=== PATIENT | male | born 1945 | race Caucasian/White ===

== ENCOUNTER 2016-07-26 14:14 | Emergency (ER) | payer OTHER ==
--- NOTE | 2016-07-26 14:20 | ER Document Report ---
ED Medical Screen (RME) - General Stated Complaint: FALL HIP PAIN Notes: Patient is a 71-year-old male who fell on Thursday. States he has right cheekbone, shoulder pain, chest and hip pain. Patient has a history of night terrors and fell out of bed on Thursday. He is not on blood thinners. Since Thursday denies any headaches, nausea, vomiting, altered mental status or confusion. I have greeted and performed a rapid initial assessment of this patient. A comprehensive ED assessment and evaluation of the patient, analysis of test results and completion of the medical decision making process will be conducted by additional ED providers. TRAVEL OUTSIDE OF THE [place] IN LAST 30 DAYS: No - Related Data Allergies/Adverse Reactions: moxifloxacin [Moxifloxacin] Allergy (Verified 07/17/15 09:29) swell Penicillins Allergy (Verified 07/17/15 09:29) swell tetracycline [Tetracycline] Allergy (Verified 07/17/15 09:29) swell Past Medical History - Past Medical History Cardiac Medical History: Reports: Hx Coronary Artery Disease, Hx Hypercholesterolemia Denies: Hx Heart Attack, Hx Hypertension Pulmonary Medical History: Reports: Hx Bronchitis - hx of, Hx COPD, Hx Pneumonia - hx Denies: Hx Asthma Neurological Medical History: Denies: Hx Cerebrovascular Accident, Hx Seizures Endocrine Medical History: Reports: Hx Hypothyroidism GI Medical History: Denies: Hx Hepatitis, Hx Hiatal Hernia, Hx Ulcer Musculoskeltal Medical History: Reports Hx Arthritis Infectious Medical History: Denies: Hx Hepatitis Past Surgical History: Reports: Hx Orthopedic Surgery - Right subtalar fusion x2 , Hx Vascular Surgery - Left carotid endarterectomy. Denies: Hx Open Heart Surgery, Hx Pacemaker - Immunizations Hx Diphtheria, Pertussis, Tetanus Vaccination: Yes
--- NOTE | 2016-07-26 14:36 | ER Document Report ---
ED Fall - General Chief Complaint: Fall Stated Complaint: FALL HIP PAIN Notes: Patient is a 71-year-old male, past medical history COPD, PTSD, 19 years, presents after he fell out of bed last night and landed on his right side of his body. He is complaining of right cheek pain, right lateral rib pain, right hip pain and right shoulder pain. He denies LOC, blood thinner use, difficulty swallowing, epistaxis, neck pain, nausea, vomiting, cough, fevers or rash. TRAVEL OUTSIDE OF THE [place] IN LAST 30 DAYS: No - Related data Allergies/Adverse Reactions: moxifloxacin [Moxifloxacin] Allergy (Verified 07/26/16 14:20) swell Penicillins Allergy (Verified 07/26/16 14:20) swell tetracycline [Tetracycline] Allergy (Verified 07/26/16 14:20) swell Past Medical History - General Information source: Patient - Social History Smoking Status: Current Every Day Smoker Chew tobacco use (# tins/day): No Frequency of alcohol use: None Drug Abuse: None Family History: Reviewed & Not Pertinent Patient has suicidal ideation: No Patient has homicidal ideation: No - Past Medical History Cardiac Medical History: Reports: Hx Coronary Artery Disease, Hx Hypercholesterolemia Denies: Hx Heart Attack, Hx Hypertension Pulmonary Medical History: Reports: Hx Bronchitis - hx of, Hx COPD, Hx Pneumonia - hx Denies: Hx Asthma Neurological Medical History: Denies: Hx Cerebrovascular Accident, Hx Seizures Endocrine Medical History: Reports: Hx Hypothyroidism Renal/ Medical History: Denies: Hx Peritoneal Dialysis GI Medical History: Denies: Hx Hepatitis, Hx Hiatal Hernia, Hx Ulcer Musculoskeltal Medical History: Reports Hx Arthritis Infectious Medical History: Denies: Hx Hepatitis Past Surgical History: Reports: Hx Orthopedic Surgery - Right subtalar fusion x2 , Hx Vascular Surgery - Left carotid endarterectomy. Denies: Hx Open Heart Surgery, Hx Pacemaker - Immunizations Hx Diphtheria, Pertussis, Tetanus Vaccination: Yes Review of Systems - Review of Systems Notes: REVIEW OF SYSTEMS: CONSTITUTIONAL: -fevers, -chills EENT: +right cheek pain, -eye pain, -difficulty swallowing, -nasal congestion CARDIOVASCULAR: +right posterior chest wall pain, -syncope. RESPIRATORY: -cough, -SOB GASTROINTESTINAL: -abdominal pain, - nausea, -vomiting, -diarrhea GENITOURINARY: -dysuria, -hematuria MUSCULOSKELETAL: +right shoulder pain, +right hip pain SKIN: -rash or skin lesions. HEMATOLOGIC: -easy bruising or bleeding. LYMPHATIC: -swollen, enlarged glands. NEUROLOGICAL: -altered mental status or loss of consciousness, -headache, - neurologic symptoms PSYCHIATRIC: -anxiety, -depression. ALL OTHER SYSTEMS REVIEWED AND NEGATIVE. Physical Exam - Notes Notes: PHYSICAL EXAMINATION: GENERAL: Well-appearing, well-nourished and in no acute distress. HEAD: Atraumatic, normocephalic. EYES: Pupils equal round and reactive to light, extraocular movements intact, sclera anicteric, conjunctiva are normal. ENT: Tenderness over right zygomatic arch, nares patent, oropharynx clear without exudates. Moist mucous membranes. NECK: Normal range of motion, supple without lymphadenopathy LUNGS: Breath sounds clear to auscultation bilaterally and equal. No wheezes rales or rhonchi. HEART: Regular rate and rhythm without murmurs ABDOMEN: Soft, nontender, normoactive bowel sounds. No guarding, no rebound. No masses appreciated. EXTREMITIES: Tenderness over right lateral shoulder, right lateral hip, and right lateral/posterior mid-chest wall. Normal range of motion, no pitting or edema. No cyanosis. NEUROLOGICAL: Cranial nerves grossly intact. Normal speech, normal gait. Normal sensory, motor, and reflex exams. PSYCH: Normal mood, normal affect. SKIN: Warm, Dry, normal turgor, no rashes or lesions noted. Course - Re-evaluation Re-evalutation: Patient has posterior fourth and fifth right rib fractures. No pneumothorax and patient is not short of breath. Provided patient with pain control and incentive spirometer with instructions to continue its use to help prevent pneumonia. Given strict return precautions and he understands. - Diagnostic Test Radiology reviewed: Image reviewed, Reports reviewed Radiology results interpreted by me: Ribs x-ray: Posterior fractures of the fourth and fifth ribs NAD in right shoulder x-ray, right hip x-ray and facial bones. Discharge - Discharge Clinical Impression: Ribs, multiple fractures Qualifiers: Encounter type: initial encounter Fracture type: closed Laterality: right Qualified Code(s): S22.41XA - Multiple fractures of ribs, right side, initial encounter for closed fracture Condition: Stable Disposition: HOME, SELF-CARE Additional Instructions: Rib Injuries and Fractures You have been diagnosed as having either bruised or broken ribs. These two injuries are treated in the same way. It will usually take four to six weeks for these injured ribs to heal. Sometimes, rib belts or anesthetic injections of the chest wall help reduce the pain. If you are using a rib belt, you should cough or take a deep breath at least every hour or two to prevent lung complications. You should not engage in any strenuous physical activity until released by your physician. The usual rule is "if it hurts, don't do it." Rib fractures can lead to serious lung complications including lung collapse, hemorrhage, and pneumonia. You should call the physician or return at once if any of the following occur: (1) Fever or chills. (2) Persistent cough, coughing up blood, or shortness of breath. (3) Increasing pain. (4) Weakness, lightheadedness, or fainting. Prescriptions: Hydrocodone/Acetaminophen [[place] 5-325 mg Tablet] 1 tab PO Q6H PRN #20 tablet PRN Reason:
[2016-07-26] MEDS ORDERED: IBUPROFEN 600 MG TABLET PO ONE (15:30)
[2016-07-26] MEDS ORDERED: HYDROCODONE/ACETAMINOPHEN 5-325 MG TABLET PO ONE (15:30)
[2016-07-26 16:52] VITALS: BP 152/69
== END 2016-07-26 16:05 | disposition home or self-care (01) ==
LOC: ER 14:14
DX: S22.41XA Multiple fractures of ribs, right side, initial encounter for closed fracture (principal); M25.552 Pain in left hip; R07.81 Pleurodynia; M25.512 Pain in left shoulder; F17.200 Nicotine dependence, unspecified, uncomplicated; W06.XXXA Fall from bed, initial encounter
CPT/HCPCS: 70150; 99284

== ENCOUNTER → 2017-03-10 | Outpatient (CLI) | payer OTHER ==
--- NOTE | 2017-03-10 15:29 | RADIOLOGY REPORT (SQ) ---
EXAM DESCRIPTION: CHEST PA/LATERAL COMPLETED DATE/TIME: 03/10/2017 3:10 pm REASON FOR STUDY: DYSPNEA, UNSPECIFIED COMPARISON: 06/01/2015 EXAM PARAMETERS: NUMBER OF VIEWS: two views TECHNIQUE: Digital Frontal and Lateral radiographic views of the chest acquired. RADIATION DOSE: NA LIMITATIONS: none FINDINGS: LUNGS AND PLEURA: The lungs are hyperexpanded. No infiltrates or effusions. There is no mass MEDIASTINUM AND HILAR STRUCTURES: No masses or contour abnormalities. HEART AND VASCULAR STRUCTURES: Heart normal size. No evidence for failure. BONES: No acute findings. HARDWARE: None in the chest. OTHER: No other significant finding. IMPRESSION: Chronic lung changes with no acute cardiopulmonary disease. TECHNICAL DOCUMENTATION: JOB ID: [id number] [employer]- All Rights Reserved
== END ==
LOC: OD 14:56
PROVIDERS: ATTEND Internal Medicine Pulmonary Disease
DX: R06.00 Dyspnea, unspecified (principal)
CPT/HCPCS: 71020

== ENCOUNTER 2017-03-27 12:31 | Inpatient (IN) | payer OTHER, MEDICARE ==
[2017-03-27] MEDS ORDERED: NORMAL SALINE 1000 ML 1,000 ML IV ONE (12:42)
--- NOTE | 2017-03-27 12:50 | ER Document Report ---
ED Fever - General Chief Complaint: Fever Stated Complaint: WEAKNESS Time Seen by Provider: 03/27/17 12:41 Notes: The patient is a 71-year-old male, past medical history COPD, hypothyroidism, presents from home after he was confused. He had a temperature of 101.1 and received 975 mg Tylenol and 300 mL normal saline by EMS prior to arrival. He has not eaten much earlier today. Patient is complaining of a productive cough. He is AAO2 (remembers the month, but thinks it is 1997). TRAVEL OUTSIDE OF THE [place] IN LAST 30 DAYS: No - Related Data Allergies/Adverse Reactions: moxifloxacin [Moxifloxacin] Allergy (Verified 07/26/16 14:20) swell Penicillins Allergy (Verified 07/26/16 14:20) swell tetracycline [Tetracycline] Allergy (Verified 07/26/16 14:20) swell Past Medical History - General Information source: Patient - Social History Smoking Status: Former Smoker Family History: Reviewed & Not Pertinent - Past Medical History Cardiac Medical History: Reports: Hx Coronary Artery Disease, Hx Hypercholesterolemia Denies: Hx Heart Attack, Hx Hypertension Pulmonary Medical History: Reports: Hx Bronchitis - hx of, Hx COPD, Hx Pneumonia - hx Denies: Hx Asthma Neurological Medical History: Denies: Hx Cerebrovascular Accident, Hx Seizures Endocrine Medical History: Reports: Hx Hypothyroidism Renal/ Medical History: Denies: Hx Peritoneal Dialysis GI Medical History: Denies: Hx Hepatitis, Hx Hiatal Hernia, Hx Ulcer Musculoskeltal Medical History: Reports Hx Arthritis Infectious Medical History: Denies: Hx Hepatitis Past Surgical History: Reports: Hx Orthopedic Surgery - Right subtalar fusion x2 , Hx Vascular Surgery - Left carotid endarterectomy. Denies: Hx Open Heart Surgery, Hx Pacemaker - Immunizations Hx Diphtheria, Pertussis, Tetanus Vaccination: Yes Review of Systems - Review of Systems Notes: REVIEW OF SYSTEMS: CONSTITUTIONAL: +fevers, -chills EENT: -eye pain, -difficulty swallowing, -nasal congestion CARDIOVASCULAR:-chest pain, -syncope. RESPIRATORY: +cough, -SOB GASTROINTESTINAL: -abdominal pain, - nausea, -vomiting, -diarrhea GENITOURINARY: -dysuria, -hematuria MUSCULOSKELETAL: -back pain, -neck pain SKIN: -rash or skin lesions. HEMATOLOGIC: -easy bruising or bleeding. LYMPHATIC: -swollen, enlarged glands. NEUROLOGICAL: +altered mental status, -loss of consciousness, -headache, - neurologic symptoms PSYCHIATRIC: -anxiety, -depression. ALL OTHER SYSTEMS REVIEWED AND NEGATIVE. Physical Exam - Notes Notes: PHYSICAL EXAMINATION: GENERAL: Well-appearing, well-nourished and in no acute distress. HEAD: Atraumatic, normocephalic. EYES: Pupils equal round and reactive to light, extraocular movements intact, sclera anicteric, conjunctiva are normal. ENT: nares patent, oropharynx clear without exudates. Moist mucous membranes. NECK: Normal range of motion, supple without lymphadenopathy LUNGS: Breath sounds clear to auscultation bilaterally and equal. No wheezes rales or rhonchi. Coarse sounds in right lower lobe. HEART: Regular rate and rhythm without murmurs ABDOMEN: Soft, nontender, normoactive bowel sounds. No guarding, no rebound. No masses appreciated. EXTREMITIES: Normal range of motion, no pitting or edema. No cyanosis. NEUROLOGICAL: Cranial nerves grossly intact. Normal speech, normal gait. Normal sensory and motor exams. AAOx2. PSYCH: Normal mood, normal affect. SKIN: Warm, Dry, normal turgor, no rashes or lesions noted. Course - Re-evaluation Re-evalutation: Patient with evidence of a right middle lobe pneumonia with fever, leukocytosis and productive cough. Because patient is having confusion he is normally very sharp at baseline, will admit patient for IV antibiotics and further monitoring of his mental status. 03/27/17 14:[address] Parson (Hospitalist) and he has accepted patient to [facility] as Inpatient. Discussed Abx choices with his allergies and will begin Rocephin and Azithromycin for CAP and closely monitor patient for any reactions. - Laboratory Result Diagrams: 03/27/17 13:22 03/27/17 13:22 Laboratory results interpreted by me: 03/27/17 03/27/17 03/27/17 13:22 13:22 13:22 WBC 18.5 H Hgb 13.3 L Seg Neuts % (Manual) 89 H Band Neutrophils % 1 L Lymphocytes % (Manual) 2 L Abs Neuts (Manual) 16.7 H Abs Lymphs (Manual) 0.4 L VBG pH 7.45 H Creatine Kinase 21 L Total Protein 5.1 L Albumin 3.3 L - Diagnostic Test Radiology reviewed: Image reviewed, Reports reviewed Radiology results interpreted by me: CXR: Patchy airspace disease in the lateral segment right middle lobe worrisome for pneumonia. - EKG Interpretation by Me EKG shows normal: Sinus rhythm, [place], Intervals, QRS Complexes, ST-T Waves Rate: Normal Discharge - Discharge Clinical Impression: SIRS (systemic inflammatory response syndrome) Pneumonia Qualifiers: Pneumonia type: due to unspecified organism Laterality: right Lung location: middle lobe of lung Qualified Code(s): J18.1 - Lobar pneumonia, unspecified organism Mental status change Qualifiers: Altered mental status type: unspecified Qualified Code(s): R41.82 - Altered mental status, unspecified Condition: Stable Disposition: ADMITTED INPATIENT Admitting Provider: Hospitalist - [facility] Admitted: Telemetry
--- NOTE | 2017-03-27 13:14 | RADIOLOGY REPORT (SQ) ---
EXAM DESCRIPTION: CHEST SINGLE VIEW COMPLETED DATE/TIME: 03/27/2017 12:59 pm REASON FOR STUDY: fever COMPARISON: Chest film 03/10/2017, 07/26/2016 CT chest 07/17/2015 EXAM PARAMETERS: NUMBER OF VIEWS: One view. TECHNIQUE: Single frontal radiographic view of the chest acquired. RADIATION DOSE: NA LIMITATIONS: None. FINDINGS: LUNGS AND PLEURA: Airspace disease is present in the lateral aspect right middle lobe worr isome for pneumonia. Lungs are otherwise hyperinflated and hyperlucent from obstructive disease. No pleural effusion. No pneumothorax. MEDIASTINUM AND HILAR STRUCTURES: No masses. Contour normal. HEART AND VASCULAR STRUCTURES: Heart normal in size. Normal vasculature. BONES: No acute findings. HARDWARE: None in the chest. OTHER: No other significant finding. IMPRESSION: Patchy airspace disease in the lateral segment right middle lobe worrisome for pneumonia TECHNICAL DOCUMENTATION: JOB ID: [id number] [employer]- All Rights Reserved
[2017-03-27 13:46] LABS: VENOUS BLOOD BASE EXCESS 6.1 mmol/L; VENOUS BLOOD PCO2 45.4 mmHg (35-63); VENOUS BLOOD PH 7.45 (7.30-7.42)
[2017-03-27 13:48] LABS: HEMATOCRIT 39.2 % (37.9-51.0); HEMOGLOBIN 13.3 g/dL (13.5-17.0); HGB HCT DIFFERENCE 0.7; MEAN CORPUSCULAR HEMOGLOBIN 30.5 pg (27.0-33.4); MEAN CORPUSCULAR HGB CONC 33.8 g/dL (32.0-36.0); MEAN CORPUSCULAR VOLUME 90 fl (80-97); RED BLOOD COUNT 4.35 10^6/uL (4.35-5.55); RED CELL DISTRIBUTION WIDTH 13.2 % (11.5-14.0); WHITE BLOOD COUNT 18.5 10^3/uL (4.0-10.5)
[2017-03-27 14:11] LABS: ALANINE AMINOTRANSFERASE 25 U/L (21-72); ALBUMIN 3.3 g/dL (3.5-5.0); ALKALINE PHOSPHATASE 70 U/L (38-126); ANION GAP 11 (5-19); ASPARTATE AMINO TRANSFERASE 17 U/L (17-59); BILIRUBIN,DIRECT 0.3 mg/dL (0.0-0.4); BILIRUBIN,TOTAL 0.7 mg/dL (0.2-1.3); BLOOD UREA NITROGEN 10 mg/dL (7-20); CALCIUM 8.4 mg/dL (8.4-10.2); CARBON DIOXIDE 29 mmol/L (22-30); CHLORIDE 103 mmol/L (98-107); CREATINE KINASE 21 U/L (55-170); GLUCOSE 101 mg/dL (75-110); LIPASE 23.5 U/L (23-300); POTASSIUM 3.8 mmol/L (3.6-5.0); SODIUM 142.7 mmol/L (137-145); TOTAL PROTEIN 5.1 g/dL (6.3-8.2)
[2017-03-27 14:19] LABS: BAND NEUTROPHILS % (MANUAL) 1 % (3-5); BASOPHILS % (MANUAL) 0 % (0-2); EOSINOPHILS % (MANUAL) 1 % (0-6); LYMPHOCYTES % (MANUAL) 2 % (13-45); OVALOCYTES SLIGHT; POIKILOCYTOSIS SLIGHT; TOTAL CELLS COUNTED 100; TOXIC GRANULATION SLIGHT; TOXIC VACUOLATION PRESENT
[2017-03-27] MEDS ORDERED: AZITHROMYCIN INJ 500 MG VIAL IV ONE (14:33)
[2017-03-27] MEDS ORDERED: CEFTRIAXONE 1 GM/D5W RTU 1 GM/50 ML RTUPB IV ONE ×2 (14:33→19:28)
[2017-03-27] MEDS ORDERED: TOBRAMYCIN SULFATE/DEXAMETH OPH SUSP 2.5 ML OP SCH (15:00)
[2017-03-27] MEDS ORDERED: ASPIRIN 81 MG TABLET, ENT COATED PO SCH (15:00)
[2017-03-27] MEDS ORDERED: (PENDING PHARMACY ID) (Difluprednate [Durezol] 1 DROP) OP SCH (15:00)
[2017-03-27] MEDS ORDERED: ACETAMINOPHEN 325 MG TABLET PO PRN (15:35)
--- NOTE | 2017-03-27 16:11 | PDOC H&P ---
History of Present Illness Admission Date/PCP: 03/27/17 14:46 Patient complains of: Cough 1 week, fever, confusion 1 day History of Present Illness: MICHAELA MONTOYA is a 71 year old male with history of coronary artery disease, dyslipidemia, hypertension, COPD who continues to smoke, CVA, seizures, hypothyroidism who presented from home with fever and confusion. The patient reports that he has been having a mildly productive cough for about 1 week. This morning he developed a fever of 101.1 and became quite confused according to the spouse. Apparently he did not know where he was; even though he recognized the he did not remember her name; and he kept asking about "someone who is coming to take the dog". When seen initially in the emergency room patient was still complaining of productive cough, and was alert oriented 2 [he cannot remember the month thought that was 1997]. At the time of my exam the patient is fully oriented. He denies any chest pain, reports mild shortness of breath. Denies nausea, vomiting, diarrhea, headache, no focal neurologic deficit. He admits that he has been having generalized weakness over the past 1 week. Chest x-ray done in the emergency room revealed patchy airspace disease in the right middle lobe. EKG revealed sinus rhythm with Q waves in the anteriorly. WBC was 18.5, hemoglobin 13.3 platelets 133. Sodium was 142 potassium 3.8 creatinine 0.8. Lactic acid 1.4. NT-pro-B natruretic peptide was 886. He has history of anaphylactic reaction to moxifloxacin, penicillin, tetracycline reporting "throat swelling" with all of them. She has been started on empiric IV ceftriaxone and azithromycin in the emergency room Past Medical History Cardiac Medical History: Reports: Coronary Artery Disease, Hyperlipidema Denies: Myocardial Infarction, Hypertension Pulmonary Medical History: Reports: Bronchitis - hx of, Chronic Obstructive Pulmonary Disease (COPD), Pneumonia - hx Denies: Asthma Neurological Medical History: Denies: Seizures Endocrine Medical History: Reports: Hypothyroidism GI Medical History: Denies: Hepatitis, Hiatal Hernia Musculoskeltal Medical History: Reports: Arthritis Hematology: Denies: Anemia, Sickle Cell Disease Past Surgical History Past Surgical History: Reports: Orthopedic Surgery - Right subtalar fusion x2, Vascular Surgery - Left carotid endarterectomy Denies: Pacemaker Social History Information Source: Patient, Relative, POA - Power of [employer] Technical Officer, Emergency Med Personnel Smoking Status: Current Every Day Smoker Cigarettes Packs Per Day: 0.5 Frequency of Alcohol Use: Social Hx Recreational Drug Use: No Hx Prescription Drug Abuse: No - Advance Directive Resuscitation Status: Do Not Resuscitate Surrogate healthcare decision maker:: Spouse Family History Family History: Reviewed & Not Pertinent Parental Family History Reviewed: Yes Children Family History Reviewed: Yes Sibling(s) Family History Reviewed.: No Medication/Allergy Home Medications: Albuterol Sulfate [Ventolin 0.042% Neb 1.25 mg/3 mL Ampul] 3 ml NEB RTTID Ammonium Lactate [Lac-Hydrin 12% Lotion 225Gm/Bottle] 1 applic TOP DAILY Budesonide/Formoterol Fumarate [Symbicort HFA 160-4.5 mcg Inhaler 6 gm] 2 puff IH Q12 03/27/17 Bupropion HCl [Wellbutrin Xl 150 mg 24hr Tablet] 150 mg PO WSUPPER 03/27/17 Cholecalciferol (Vitamin D3) [Vitamin D3 1000 Unit Tablet] 1,000 unit PO DAILY 03/27/17 Gabapentin [Neurontin 300 mg Capsule] 300 mg PO 5XD 03/27/17 Ibuprofen [Motrin 800 mg Tablet] 800 mg PO DAILYP PRN 03/27/17 Levothyroxine Sodium [Synthroid] 75 mcg PO QAM 03/27/17 Lidocaine [Lidoderm 5% (700 mg) Transdermal Patch] 1 patch TOP DAILY 03/27/17 Morphine Sulfate [Morphine Ir 30 mg Tablet] 30 mg PO QAM 03/27/17 Morphine Sulfate [Morphine Sulfate ER] 30 mg PO QPM 03/27/17 Multivit-Minerals/FA/Lycopene [One Daily For Men Tablet] 1 tab PO DAILY Pravastatin Sodium [Pravachol] 80 mg PO QHS 03/27/17 Prednisone [Deltasone 5 mg Tablet] 5 mg PO QAM 03/27/17 Tiotropium [place] [Spiriva Handihaler 18 mcg/dose (30 Dose)] 18 mcg IH DAILY Allergies/Adverse Reactions: moxifloxacin [Moxifloxacin] Allergy (Verified 07/26/16 14:20) swell Penicillins Allergy (Verified 07/26/16 14:20) swell tetracycline [Tetracycline] Allergy (Verified 07/26/16 14:20) swell Review of Systems Constitutional: PRESENT: as per HPI, chills, fatigue, fever(s), headache(s), weakness Nose, Mouth, and Throat: PRESENT: headache(s) Respiratory: PRESENT: cough, dyspnea, sputum Gastrointestinal: PRESENT: nausea Neurological: PRESENT: confusion, dizziness Physical Exam Vital Signs: Temp Pulse Resp BP Pulse Ox 17 116/62 93 03/27/17 14:31 03/27/17 14:31 03/27/17 14:31 General appearance: PRESENT: no acute distress, cooperative, well-developed Head exam: PRESENT: atraumatic, normocephalic Eye exam: PRESENT: conjunctiva pink, EOMI Mouth exam: PRESENT: moist, neck supple, tongue midline Teeth exam: PRESENT: poor dentation Neck exam: PRESENT: full ROM. ABSENT: carotid bruit, JVD, lymphadenopathy, meningismus, tenderness, thyromegaly, tracheal deviation, tracheostomy, other Respiratory exam: PRESENT: decreased breath sounds, symmetrical, unlabored. ABSENT: accessory muscle use, chest wall tenderness, clear to auscultation jjaa, crackles, prolonged expiratory phas, rales, retraction, rhonchi, stridor, tachypnea, wheezes, other Cardiovascular exam: PRESENT: RRR, +S1, +S2. ABSENT: bradycardia, clicks, diastolic murmur, gallop, irregular rhythm, rubs, systolic murmur, tachycardia, other Pulses: PRESENT: normal carotid pulses, normal dorsalis pedis pul, +2 pedal pulses bilateral Vascular exam: PRESENT: normal capillary refill GI/Abdominal exam: PRESENT: normal bowel sounds, soft. ABSENT: ascites, diminished bowel sounds, distended, firm, guarding, hernia, hyperactive bowel sounds, hypoactive bowel sounds, mass, Hope's sign, organolmegaly, rebound, rigid, tenderness, other Rectal exam: PRESENT: deferred Extremities exam: PRESENT: full ROM. ABSENT: calf tenderness, clubbing, joint swelling, pedal edema, tenderness, +1 edema, +2 edema, other Musculoskeletal exam: PRESENT: ambulatory, full ROM, normal inspection. ABSENT : deformity, dislocation, tenderness, other Neurological exam: PRESENT: alert, awake, oriented to person, oriented to place , oriented to time, oriented to situation, reflexes normal, CN II-XII grossly intact. ABSENT: altered, abnormal gait, ataxia, motor sensory deficit, normal gait, aphasic, other Psychiatric exam: PRESENT: flat affect Skin exam: PRESENT: intact, normal color, warm Results Impressions: Chest X-Ray 03/27/17 12:42 IMPRESSION: Patchy airspace disease in the lateral segment right middle lobe worrisome for pneumonia Assessment & Plan - Diagnosis (1) Pneumonia Qualifiers: Pneumonia type: due to unspecified organism Laterality: right Lung location: middle lobe of lung Qualified Code(s): J18.1 - Lobar pneumonia, unspecified organism Is this a current diagnosis for this admission?: Yes Plan: Community-acquired pneumonia with SIRS. Chest x-ray with RML infiltrate. Febrile with WBC 18.5. Continue empiric IV ceftriaxone and azithromycin. Follow cultures. Continue IV fluids (2) Mental status change Qualifiers: Altered mental status type: disorientation Qualified Code(s): R41.0 - Disorientation, unspecified Is this a current diagnosis for this admission?: Yes Plan: Likely related to pneumonia/SIRS. Improved. Will follow (3) SIRS (systemic inflammatory response syndrome) Is this a current diagnosis for this admission?: Yes Plan: As above (4) COPD (chronic obstructive pulmonary disease) with chronic bronchitis Is this a current diagnosis for this admission?: Yes Plan: COPD, without acute exacerbation, and active smoker. Continue current home medications including nebs and steroids (5) CAD (coronary artery disease) Qualifiers: Coronary Disease-Associated Artery/Lesion type: unspecified vessel or lesion type Is this a current diagnosis for this admission?: Yes Plan: Currently chest pain-free. Will trend troponins. Continue current management (6) Chronic pain Is this a current diagnosis for this admission?: Yes Plan: Continue current home medication. Monitor for increased somnolence and for respiratory depression (7) Hypothyroidism Is this a current diagnosis for this admission?: Yes Plan: Chronic, stable. Continue levothyroxine (8) Tobacco abuse Is this a current diagnosis for this admission?: Yes Plan: Patient continues to smoke about 5 cigarettes daily. He has more than 50 pack years of smoking. Does not wish to quit smoking at this time. Nicotine replacement therapy offered (9) DVT prophylaxis Is this a current diagnosis for this admission?: Yes Plan: Subcutaneous Lovenox - Time Time Spent: 50 to 70 Minutes Medications reviewed and adjusted accordingly: Yes Anticipated discharge: Home Within: within 72 hours - Plan Summary Plan Summary: I have reviewed the diagnosis, prognosis, plan of care with the patient and his spouse was present by the bedside in the emergency room. I have addressed all their concerns answered their questions. They have expressed clear understanding of these issues
[2017-03-27 19:40] LABS: APPEARANCE,URINE CLEAR; BILIRUBIN,URINE NEGATIVE (NEGATIVE); GLUCOSE, URINE NEGATIVE (NEGATIVE); KETONES,URINE NEGATIVE (NEGATIVE); LEUKOCYTE ESTERASE,URINE NEGATIVE (NEGATIVE); NITRITE,URINE NEGATIVE (NEGATIVE); PROTEIN,URINE NEGATIVE (NEGATIVE); URINE SPECIFIC GRAVITY 1.011
[2017-03-27] MEDS: NORMAL SALINE 1000 ML 1,000 ML IV PRN (19:47)
[2017-03-27 19:53] LABS: URINE BARBITURATES SCREEN NEGATIVE; URINE METHADONE SCREEN NEGATIVE; URINE OPIATES LOW UNCONFIRMED POSITIVE; URINE PHENCYCLIDINE SCREEN NEGATIVE
[2017-03-27] MEDS: AZITHROMYCIN 500 MG in DEXTROSE 5%-WATER 250 ML IV SCH (20:05)
[2017-03-27] MEDS ORDERED: ENOXAPARIN SODIUM INJ 40 MG/0.4 ML DISP.SYRIN SUBCUT ONE (20:30)
[2017-03-27] MEDS: ALBUTEROL SULFATE 0.042% NEB (1.25 MG/3 ML) AMPUL NEB SCH (20:46)
[2017-03-27] MEDS: GABAPENTIN 300 MG CAPSULE PO SCH ×2 (22:31→22:41)
[2017-03-27] MEDS: MORPHINE SULFATE IR 30 MG TABLET PO PRN ×2 (22:31→23:19)
[2017-03-27] MEDS: FAMOTIDINE 20 MG TABLET PO SCH (22:41)
[2017-03-27] MEDS: ATORVASTATIN CALCIUM 20 MG TABLET PO SCH (22:41)
[2017-03-27] MEDS: GUAIFENESIN 600 MG TABLET.SA PO SCH (22:41)
[2017-03-27] MEDS: BUPROPION HCL 100 MG TABLET PO SCH (22:42)
[2017-03-27] MEDS: BUDESONIDE/FORMOTEROL 80-4.5 MCG 60 PUFF/6.9 GM MDI IH SCH (22:46)
--- NOTE | 2017-03-27 22:48 | EKG REPORT ---
SEVERITY:- ABNORMAL ECG - SINUS RHYTHM ANTERIOR INFARCT, OLD : Confirmed by: Daniak Morales 27-Mar-2017 22:47:45
[2017-03-28 05:15] LABS: ABSOLUTE LYMPHOCYTES (AUTO) 1.4 10^3/uL (0.5-4.7); ABSOLUTE MONOCYTES (AUTO) 1.6 10^3/uL (0.1-1.4); ABSOLUTE NEUT (AUTO) 14.4 10^3/uL (1.7-8.2); BASOPHILS % (AUTO) 0.1 % (0-2); EOSINOPHILS % (AUTO) 0.3 % (0-6); HEMATOCRIT 35.2 % (37.9-51.0); HEMOGLOBIN 11.9 g/dL (13.5-17.0); HGB HCT DIFFERENCE 0.5; LYMPHOCYTES % (AUTO) 7.8 % (13-45); MEAN CORPUSCULAR HEMOGLOBIN 30.8 pg (27.0-33.4); MEAN CORPUSCULAR HGB CONC 33.9 g/dL (32.0-36.0); MEAN CORPUSCULAR VOLUME 91 fl (80-97); MONOCYTES % (AUTO) 9.4 % (3-13); RED BLOOD COUNT 3.87 10^6/uL (4.35-5.55); RED CELL DISTRIBUTION WIDTH 12.9 % (11.5-14.0); SEGMENTED NEUTROPHILS % (AUTO) 82.4 % (42-78); WHITE BLOOD COUNT 17.5 10^3/uL (4.0-10.5)
[2017-03-28 05:35] LABS: ANION GAP 8 (5-19); BLOOD UREA NITROGEN 11 mg/dL (7-20); CALCIUM 7.8 mg/dL (8.4-10.2); CARBON DIOXIDE 30 mmol/L (22-30); CHLORIDE 104 mmol/L (98-107); CREATININE RESULT 0.71 mg/dL (0.52-1.25); GLUCOSE 90 mg/dL (75-110); SODIUM 142.4 mmol/L (137-145)
[2017-03-28] MEDS: BUPROPION HCL 100 MG TABLET PO SCH ×3 (05:51→22:03)
[2017-03-28] MEDS: NORMAL SALINE 1000 ML 1,000 ML IV PRN (07:30)
[2017-03-28] MEDS: ALBUTEROL SULFATE 0.042% NEB (1.25 MG/3 ML) AMPUL NEB SCH ×3 (08:21→19:46)
[2017-03-28] MEDS: GUAIFENESIN 600 MG TABLET.SA PO SCH ×2 (09:41→22:03)
[2017-03-28] MEDS: TIOTROPIUM BROMIDE DPI 5 CAP/KIT (18 MCG/CAP) IH SCH (09:42)
[2017-03-28] MEDS: PREDNISONE 5 MG TABLET PO SCH (09:42)
[2017-03-28] MEDS: GABAPENTIN 300 MG CAPSULE PO SCH ×4 (09:44→22:04)
[2017-03-28] MEDS: LEVOTHYROXINE SODIUM 0.075 MG TABLET PO SCH (09:45)
[2017-03-28] MEDS: FAMOTIDINE 20 MG TABLET PO SCH ×2 (09:45→22:03)
[2017-03-28] MEDS: BUDESONIDE/FORMOTEROL 80-4.5 MCG 60 PUFF/6.9 GM MDI IH SCH ×2 (09:45→17:38)
[2017-03-28] MEDS: ENOXAPARIN SODIUM INJ 40 MG/0.4 ML DISP.SYRIN SUBCUT SCH (09:46)
[2017-03-28] MEDS: MORPHINE SULFATE IR 30 MG TABLET PO PRN ×4 (09:56→22:04)
[2017-03-28] MEDS ORDERED: GALANTAMINE HBR 8 MG PO SCH (10:00)
[2017-03-28] MEDS ORDERED: (PENDING PHARMACY ID) (Bupropion Hcl [Bupropion Xl] 150 MG) PO SCH (10:00)
[2017-03-28] MEDS ORDERED: (PENDING PHARMACY ID) (Omeprazole [Prilosec] 40 MG) PO SCH (10:00)
[2017-03-28] MEDS ORDERED: LANSOPRAZOLE 30 MG TAB.RAP.DR PO SCH (10:00)
[2017-03-28] MEDS ORDERED: GALANTAMINE HBR 24 MG PO SCH (10:00)
[2017-03-28] MEDS: LIDOCAINE 5% (700 MG) TRANSDERMAL ADH..PATCH TP PRN (11:21)
--- NOTE | 2017-03-28 11:55 | PDOC PROGRESS REPORT ---
Subjective Progress Note for:: 03/28/17 Subjective:: Day 1 of hospitalization. Follow-up visit for patient with community-acquired pneumonia with sepsis. 71-year-old male with history of CAD, dyslipidemia, HTN, COPD who continues to smoke, CVA, seizures, hypothyroidism, who presented from home with fever and confusion. He was noted to have fever with temperatures of 101.1 and had come significantly confused and disoriented per spouse. In the emergency room he was found to have pneumonia with a right middle lobe infiltrate and started empirically on IV ceftriaxone and azithromycin. Overnight events noted: Patient had a fever of 100.2 overnight. He is doing better this morning. Spouse states that patient is still somewhat confused and did not know what year it is. Continues to have mildly productive cough. Denies shortness of breath. Denies nausea, vomiting, diarrhea. Currently afebrile. Spouse and granddaughter by bedside Physical Exam Vital Signs: Temp Pulse Resp BP Pulse Ox 98.8 F 87 16 134/57 H 96 03/28/17 07:39 03/28/17 08:51 03/28/17 08:21 03/28/17 07:39 03/28/17 08:21 Intake & Output 03/27/17 03/28/17 03/29/17 06:59 06:59 06:59 Intake Total 1133 Output Total 1050 Balance 83 Weight 74.5 kg General appearance: PRESENT: no acute distress, cooperative, thin Head exam: PRESENT: atraumatic, normocephalic Respiratory exam: PRESENT: decreased breath sounds, symmetrical, unlabored. ABSENT: accessory muscle use, chest wall tenderness, clear to auscultation jaja, crackles, prolonged expiratory phas, rales, retraction, rhonchi, stridor, tachypnea, wheezes, other Cardiovascular exam: PRESENT: RRR, +S1, +S2. ABSENT: bradycardia, clicks, diastolic murmur, gallop, irregular rhythm, rubs, systolic murmur, tachycardia, other GI/Abdominal exam: PRESENT: normal bowel sounds, soft. ABSENT: ascites, diminished bowel sounds, distended, firm, guarding, hernia, hyperactive bowel sounds, hypoactive bowel sounds, mass, Hope's sign, organolmegaly, rebound, rigid, tenderness, other Neurological exam: PRESENT: alert, awake, oriented to person, oriented to place , oriented to time, oriented to situation, reflexes normal, CN II-XII grossly intact Psychiatric exam: PRESENT: anxious Results Laboratory Results: 03/28/17 04:49 03/28/17 04:49 03/27/17 03/28/17 03/28/17 19:16 04:49 04:49 WBC 17.5 H RBC 3.87 L Hgb 11.9 L Hct 35.2 L MCV 91 MCH 30.8 MCHC 33.9 RDW 12.9 Plt Count 182 Seg Neutrophils % 82.4 H Lymphocytes % 7.8 L Monocytes % 9.4 Eosinophils % 0.3 Basophils % 0.1 Absolute Neutrophils 14.4 H Absolute Lymphocytes 1.4 Absolute Monocytes 1.6 H Absolute Eosinophils 0.0 Absolute Basophils 0.0 Sodium 142.4 Potassium 4.0 Chloride 104 Carbon Dioxide 30 Anion Gap 8 BUN 11 Creatinine 0.71 Est GFR ( Amer) > 60 Est GFR (Non-Af Amer) > 60 Glucose 90 Calcium 7.8 L Urine Color YELLOW Urine Appearance CLEAR Urine pH 7.0 Ur Specific [place] 1.011 Urine Protein NEGATIVE Urine Glucose (UA) NEGATIVE Urine Ketones NEGATIVE Urine Blood NEGATIVE Urine Nitrite NEGATIVE Ur Leukocyte Esterase NEGATIVE Urine WBC (Auto) 0 Urine RBC (Auto) 2 03/27/17 03/28/17 03/28/17 17:40 00:30 04:49 Troponin I < 0.012 < 0.012 < 0.012 Impressions: Chest X-Ray 03/27/17 12:42 IMPRESSION: Patchy airspace disease in the lateral segment right middle lobe worrisome for pneumonia Status: Image reviewed by me Assessment & Plan - Diagnosis (1) Pneumonia Qualifiers: Pneumonia type: due to unspecified organism Laterality: right Lung location: middle lobe of lung Qualified Code(s): J18.1 - Lobar pneumonia, unspecified organism Is this a current diagnosis for this admission?: Yes Plan: Community-acquired pneumonia with SIRS. Chest x-ray with RML infiltrate. Continues to be febrile with persistent leukocytosis. Cultures negative at this time. Continue empiric IV ceftriaxone and azithromycin. Follow cultures. Continue IV fluids (2) SIRS (systemic inflammatory response syndrome) Is this a current diagnosis for this admission?: Yes Plan: As above (3) Mental status change Qualifiers: Altered mental status type: disorientation Qualified Code(s): R41.0 - Disorientation, unspecified Is this a current diagnosis for this admission?: Yes Plan: Likely related to pneumonia/SIRS. Improving. Will follow (4) COPD (chronic obstructive pulmonary disease) with chronic bronchitis Is this a current diagnosis for this admission?: Yes Plan: COPD, without acute exacerbation, and active smoker. Continue current home medications including nebs and steroids (5) CAD (coronary artery disease) Qualifiers: Coronary Disease-Associated Artery/Lesion type: unspecified vessel or lesion type Is this a current diagnosis for this admission?: Yes Plan: Currently chest pain-free. Serial troponins negative. Continue current management (6) Chronic pain Is this a current diagnosis for this admission?: Yes Plan: Continue current home medication. Monitor for increased somnolence and for respiratory depression (7) Hypothyroidism Is this a current diagnosis for this admission?: Yes Plan: Chronic, stable. Continue levothyroxine (8) Tobacco abuse Is this a current diagnosis for this admission?: Yes Plan: Patient continues to smoke about 5 cigarettes daily. He has more than 50 pack years of smoking. Does not wish to quit smoking at this time. Continue nicotine replacement therapy (9) DVT prophylaxis Is this a current diagnosis for this admission?: Yes Plan: Subcutaneous Lovenox - Time Time Spent with patient: 35 or more minutes Anticipated discharge: Home - Inpatient Certification Based on my medical assessment, after consideration of the patient's comorbidities, presenting symptoms, or acuity I expect that the services needed warrant INPATIENT care.: Yes I certify that my determination is in accordance with my understanding of Medicare's requirements for reasonable and necessary INPATIENT services [42 CFR 412.3e].: Yes Medical Necessity: Need for IV Antibiotics, Risk of Complication if Not Cared For in Hospital - Plan Summary Plan Summary: Continue inpatient care: Plan to discharge possibly on Thursday if clinically improved
[2017-03-28] MEDS: AZITHROMYCIN 500 MG in DEXTROSE 5%-WATER 250 ML IV SCH (19:48)
[2017-03-28] MEDS: ATORVASTATIN CALCIUM 20 MG TABLET PO SCH (22:04)
[2017-03-28] MEDS: CEFTRIAXONE 1 GM/D5W RTU 1 GM/50 ML RTUPB IV SCH (22:39)
[2017-03-29] MEDS: BUPROPION HCL 100 MG TABLET PO SCH ×3 (05:12→21:18)
[2017-03-29 05:43] LABS: ABSOLUTE LYMPHOCYTES (AUTO) 1.1 10^3/uL (0.5-4.7); ABSOLUTE MONOCYTES (AUTO) 1.2 10^3/uL (0.1-1.4); ABSOLUTE NEUT (AUTO) 9.6 10^3/uL (1.7-8.2); BASOPHILS % (AUTO) 0.4 % (0-2); EOSINOPHILS % (AUTO) 0.4 % (0-6); HEMATOCRIT 35.4 % (37.9-51.0); HEMOGLOBIN 12.1 g/dL (13.5-17.0); HGB HCT DIFFERENCE 0.9; LYMPHOCYTES % (AUTO) 8.9 % (13-45); MEAN CORPUSCULAR HEMOGLOBIN 30.9 pg (27.0-33.4); MEAN CORPUSCULAR HGB CONC 34.3 g/dL (32.0-36.0); MEAN CORPUSCULAR VOLUME 90 fl (80-97); RED BLOOD COUNT 3.93 10^6/uL (4.35-5.55); RED CELL DISTRIBUTION WIDTH 12.9 % (11.5-14.0); SEGMENTED NEUTROPHILS % (AUTO) 80.3 % (42-78)
[2017-03-29 06:02] LABS: ANION GAP 9 (5-19); BLOOD UREA NITROGEN 9 mg/dL (7-20); CALCIUM 8.1 mg/dL (8.4-10.2); CARBON DIOXIDE 28 mmol/L (22-30); CHLORIDE 107 mmol/L (98-107); CREATININE RESULT 0.66 mg/dL (0.52-1.25); GLUCOSE 89 mg/dL (75-110); POTASSIUM 3.2 mmol/L (3.6-5.0); SODIUM 143.9 mmol/L (137-145)
[2017-03-29] MEDS: ALBUTEROL SULFATE 0.042% NEB (1.25 MG/3 ML) AMPUL NEB SCH ×3 (08:23→20:05)
[2017-03-29] MEDS: ENOXAPARIN SODIUM INJ 40 MG/0.4 ML DISP.SYRIN SUBCUT SCH (09:48)
[2017-03-29] MEDS: FAMOTIDINE 20 MG TABLET PO SCH ×2 (09:50→21:18)
[2017-03-29] MEDS: GUAIFENESIN 600 MG TABLET.SA PO SCH ×2 (09:50→21:19)
[2017-03-29] MEDS: LEVOTHYROXINE SODIUM 0.075 MG TABLET PO SCH (09:50)
[2017-03-29] MEDS: GABAPENTIN 300 MG CAPSULE PO SCH ×4 (09:50→21:19)
[2017-03-29] MEDS: PREDNISONE 5 MG TABLET PO SCH (09:51)
[2017-03-29] MEDS: BUDESONIDE/FORMOTEROL 80-4.5 MCG 60 PUFF/6.9 GM MDI IH SCH ×2 (09:51→18:42)
[2017-03-29] MEDS: TIOTROPIUM BROMIDE DPI 5 CAP/KIT (18 MCG/CAP) IH SCH (09:52)
[2017-03-29] MEDS: LIDOCAINE 5% (700 MG) TRANSDERMAL ADH..PATCH TP PRN (10:10)
[2017-03-29] MEDS ORDERED: POTASSIUM CHLORIDE 10 MEQ TABLET.SA PO ONE (11:26)
[2017-03-29] MEDS ORDERED: HYDRALAZINE HCL INJ/PF 20 MG/1 ML SDV IV PRN (11:28)
--- NOTE | 2017-03-29 11:46 | PDOC PROGRESS REPORT ---
Subjective Progress Note for:: 03/29/17 Subjective:: Day 2 of hospitalization. Follow-up visit for patient with community-acquired pneumonia with sepsis. 71-year-old male with history of CAD, dyslipidemia, HTN, COPD who continues to smoke, CVA, seizures, hypothyroidism, who presented from home with fever and confusion. He was noted to have fever with temperatures of 101.1 and had come significantly confused and disoriented per spouse. In the emergency room he was found to have pneumonia with a right middle lobe infiltrate and started empirically on IV ceftriaxone and azithromycin. He is improving and has been afebrile for the past 24 hours. Overnight events noted: He was reportedly confused yesterday evening and had some visual hallucinations per spouse. He is doing better this morning. Continues to have mildly productive cough. Denies shortness of breath. Denies nausea, vomiting, diarrhea. Currently afebrile. Spouse is by bedside, and is requesting that patient be evaluated for possible nursing home facility placement, due to his generalized weakness Physical Exam Vital Signs: Temp Pulse Resp BP Pulse Ox 98.7 F 75 16 178/68 H 98 03/29/17 07:34 03/29/17 08:20 03/29/17 08:20 03/29/17 08:27 03/29/17 08:20 Intake & Output 03/28/17 03/29/17 03/30/17 06:59 06:59 06:59 Intake Total 1133 3006 Output Total 1050 1075 Balance 83 1931 Weight 74.5 kg General appearance: PRESENT: no acute distress, cooperative, thin Head exam: PRESENT: atraumatic, normocephalic Respiratory exam: PRESENT: decreased breath sounds, symmetrical, unlabored. ABSENT: accessory muscle use, chest wall tenderness, clear to auscultation jaja, crackles, prolonged expiratory phas, rales, retraction, rhonchi, stridor, tachypnea, wheezes, other Cardiovascular exam: PRESENT: RRR, +S1, +S2. ABSENT: bradycardia, clicks, diastolic murmur, gallop, irregular rhythm, rubs, systolic murmur, tachycardia, other GI/Abdominal exam: PRESENT: normal bowel sounds, soft. ABSENT: ascites, diminished bowel sounds, distended, firm, guarding, hernia, hyperactive bowel sounds, hypoactive bowel sounds, mass, Hope's sign, organolmegaly, rebound, rigid, tenderness, other Neurological exam: PRESENT: awake, oriented to person, oriented to place, oriented to time, oriented to situation, reflexes normal, CN II-XII grossly intact Psychiatric exam: PRESENT: depressed Results Laboratory Results: 03/29/17 04:59 03/29/17 04:59 03/29/17 03/29/17 04:59 04:59 WBC 12.0 H RBC 3.93 L Hgb 12.1 L Hct 35.4 L MCV 90 MCH 30.9 MCHC 34.3 RDW 12.9 Plt Count 166 Seg Neutrophils % 80.3 H Lymphocytes % 8.9 L Monocytes % 10.0 Eosinophils % 0.4 Basophils % 0.4 Absolute Neutrophils 9.6 H Absolute Lymphocytes 1.1 Absolute Monocytes 1.2 Absolute Eosinophils 0.0 Absolute Basophils 0.0 Sodium 143.9 Potassium 3.2 L Chloride 107 Carbon Dioxide 28 Anion Gap 9 BUN 9 Creatinine 0.66 Est GFR ( Amer) > 60 Est GFR (Non-Af Amer) > 60 Glucose 89 Calcium 8.1 L 03/27/17 03/28/17 03/28/17 17:40 00:30 04:49 Troponin I < 0.012 < 0.012 < 0.012 Impressions: Chest X-Ray 03/27/17 12:42 IMPRESSION: Patchy airspace disease in the lateral segment right middle lobe worrisome for pneumonia Status: Image reviewed by me Assessment & Plan - Diagnosis (1) Pneumonia Qualifiers: Pneumonia type: due to unspecified organism Laterality: right Lung location: middle lobe of lung Qualified Code(s): J18.1 - Lobar pneumonia, unspecified organism Is this a current diagnosis for this admission?: Yes Plan: Community-acquired pneumonia with SIRS. Chest x-ray with RML infiltrate. Improving: Febrile 24 hours with resolving leukocytosis, WBC 12 [18.5]. Sputum cultures negative at this time. Continue empiric IV ceftriaxone and azithromycin, plan to transition to oral antibiotics upon discharge. Follow cultures. (2) SIRS (systemic inflammatory response syndrome) Is this a current diagnosis for this admission?: Yes Plan: As above (3) Mental status change Qualifiers: Altered mental status type: disorientation Qualified Code(s): R41.0 - Disorientation, unspecified Is this a current diagnosis for this admission?: Yes Plan: Altered mental status with episodes of visual hallucination likely related to pneumonia/SIRS. Improving. Will follow (4) COPD (chronic obstructive pulmonary disease) with chronic bronchitis Is this a current diagnosis for this admission?: Yes Plan: COPD, without acute exacerbation, and active smoker. Continue current home medications including nebs and steroids (5) CAD (coronary artery disease) Qualifiers: Coronary Disease-Associated Artery/Lesion type: unspecified vessel or lesion type Is this a current diagnosis for this admission?: Yes Plan: Currently chest pain-free. Serial troponins negative. Continue current management (6) Chronic pain Is this a current diagnosis for this admission?: Yes Plan: Continue current home opiates. Monitor for increased somnolence and for respiratory depression (7) Hypothyroidism Is this a current diagnosis for this admission?: Yes Plan: Chronic, stable. Continue levothyroxine (8) Tobacco abuse Is this a current diagnosis for this admission?: Yes Plan: Patient continues to smoke about 5 cigarettes daily. He has more than 50 pack years of smoking. Does not wish to quit smoking at this time. Continue nicotine replacement therapy (9) DVT prophylaxis Is this a current diagnosis for this admission?: Yes Plan: Subcutaneous Lovenox - Time Time Spent with patient: 25-34 minutes Smoking Cessation Education: 3 to 10 minutes Medications reviewed and adjusted accordingly: Yes Anticipated discharge: SNF - Inpatient Certification Medical Necessity: Need for IV Antibiotics, Risk of Complication if Not Cared For in Hospital - Plan Summary Plan Summary: Spouse believes patient is still very weak and that he would not be safe to be discharged home in a.m. She is recommending that the patient be reassessed for possible discharge to nursing home facility
[2017-03-29] MEDS: MORPHINE SULFATE IR 30 MG TABLET PO PRN (13:20)
[2017-03-29] MEDS ORDERED: MORPHINE SULFATE IR 30 MG TABLET PO PRN (13:30)
[2017-03-29] MEDS: AZITHROMYCIN 500 MG in DEXTROSE 5%-WATER 250 ML IV SCH (20:52)
[2017-03-29] MEDS: ATORVASTATIN CALCIUM 20 MG TABLET PO SCH (21:18)
[2017-03-29] MEDS: CEFTRIAXONE 1 GM/D5W RTU 1 GM/50 ML RTUPB IV SCH (23:28)
[2017-03-30] MEDS: BUPROPION HCL 100 MG TABLET PO SCH ×2 (05:49→14:40)
[2017-03-30 07:28] LABS: ABSOLUTE EOSINOPHILS # (AUTO) 0.1 10^3/uL (0.0-0.6); ABSOLUTE LYMPHOCYTES (AUTO) 1.5 10^3/uL (0.5-4.7); ABSOLUTE MONOCYTES (AUTO) 1.4 10^3/uL (0.1-1.4); ABSOLUTE NEUT (AUTO) 8.1 10^3/uL (1.7-8.2); BASOPHILS % (AUTO) 0.4 % (0-2); EOSINOPHILS % (AUTO) 0.7 % (0-6); HEMATOCRIT 35.7 % (37.9-51.0); HEMOGLOBIN 12.2 g/dL (13.5-17.0); HGB HCT DIFFERENCE 0.9; LYMPHOCYTES % (AUTO) 13.7 % (13-45); MEAN CORPUSCULAR HEMOGLOBIN 30.8 pg (27.0-33.4); MEAN CORPUSCULAR HGB CONC 34.1 g/dL (32.0-36.0); MEAN CORPUSCULAR VOLUME 90 fl (80-97); MONOCYTES % (AUTO) 12.4 % (3-13); RED BLOOD COUNT 3.96 10^6/uL (4.35-5.55); RED CELL DISTRIBUTION WIDTH 12.8 % (11.5-14.0); SEGMENTED NEUTROPHILS % (AUTO) 72.8 % (42-78); WHITE BLOOD COUNT 11.1 10^3/uL (4.0-10.5)
[2017-03-30 08:07] LABS: ANION GAP 8 (5-19); BLOOD UREA NITROGEN 9 mg/dL (7-20); CALCIUM 8.3 mg/dL (8.4-10.2); CARBON DIOXIDE 28 mmol/L (22-30); CHLORIDE 107 mmol/L (98-107); CREATININE RESULT 0.68 mg/dL (0.52-1.25); GLUCOSE 84 mg/dL (75-110); POTASSIUM 3.7 mmol/L (3.6-5.0); SODIUM 142.9 mmol/L (137-145)
[2017-03-30] MEDS: ALBUTEROL SULFATE 0.042% NEB (1.25 MG/3 ML) AMPUL NEB SCH ×2 (08:17→15:03)
[2017-03-30] MEDS: GABAPENTIN 300 MG CAPSULE PO SCH ×2 (10:16→14:40)
[2017-03-30] MEDS: PREDNISONE 5 MG TABLET PO SCH (10:16)
[2017-03-30] MEDS: FAMOTIDINE 20 MG TABLET PO SCH (10:16)
[2017-03-30] MEDS: BUDESONIDE/FORMOTEROL 80-4.5 MCG 60 PUFF/6.9 GM MDI IH SCH (10:16)
[2017-03-30] MEDS: LEVOTHYROXINE SODIUM 0.075 MG TABLET PO SCH (10:16)
[2017-03-30] MEDS: GUAIFENESIN 600 MG TABLET.SA PO SCH (10:16)
[2017-03-30] MEDS: TIOTROPIUM BROMIDE DPI 5 CAP/KIT (18 MCG/CAP) IH SCH (10:17)
[2017-03-30] MEDS: ENOXAPARIN SODIUM INJ 40 MG/0.4 ML DISP.SYRIN SUBCUT SCH (10:17)
[2017-03-30] MEDS: LIDOCAINE 5% (700 MG) TRANSDERMAL ADH..PATCH TP PRN (10:19)
--- NOTE | 2017-03-30 13:35 | PDOC DISCHARGE SUMMARY ---
General - Admit/Disc Date/PCP Admission Date/Primary Care Provider: 03/27/17 14:46 Discharge Date: 03/30/17 - Discharge Diagnosis (1) Pneumonia Is this a current diagnosis for this admission?: Yes (2) SIRS (systemic inflammatory response syndrome) Is this a current diagnosis for this admission?: Yes (3) Mental status change Is this a current diagnosis for this admission?: Yes (4) COPD (chronic obstructive pulmonary disease) with chronic bronchitis Is this a current diagnosis for this admission?: Yes (5) CAD (coronary artery disease) Is this a current diagnosis for this admission?: Yes (6) Chronic pain Is this a current diagnosis for this admission?: Yes (7) Hypothyroidism Is this a current diagnosis for this admission?: Yes (8) Tobacco abuse Is this a current diagnosis for this admission?: Yes - Additional Information Resuscitation Status: Do Not Resuscitate Discharge Diet: Cardiac Discharge Activity: Activity As Tolerated Home Medications: Albuterol Sulfate [Ventolin 0.042% Neb 1.25 mg/3 mL Ampul] 3 ml NEB RTTID Ammonium Lactate [Lac-Hydrin 12% Lotion 225Gm/Bottle] 1 applic TOP DAILY Budesonide/Formoterol Fumarate [Symbicort HFA 160-4.5 mcg Inhaler 6 gm] 2 puff IH Q12 03/27/17 Bupropion HCl [Wellbutrin Xl 150 mg 24hr Tablet] 150 mg PO WSUPPER 03/27/17 Cholecalciferol (Vitamin D3) [Vitamin D3 1000 Unit Tablet] 1,000 unit PO DAILY 03/27/17 Gabapentin [Neurontin 300 mg Capsule] 300 mg PO 5XD 03/27/17 Ibuprofen [Motrin 800 mg Tablet] 800 mg PO DAILYP PRN 03/27/17 Levothyroxine Sodium [Synthroid] 75 mcg PO QAM 03/27/17 Lidocaine [Lidoderm 5% (700 mg) Transdermal Patch] 1 patch TOP DAILY 03/27/17 Morphine Sulfate [Morphine Ir 30 mg Tablet] 30 mg PO QAM 03/27/17 Morphine Sulfate [Morphine Sulfate ER] 30 mg PO QPM 03/27/17 Multivit-Minerals/FA/Lycopene [One Daily For Men Tablet] 1 tab PO DAILY Pravastatin Sodium [Pravachol] 80 mg PO QHS 03/27/17 Prednisone [Deltasone 5 mg Tablet] 5 mg PO QAM 03/27/17 Tiotropium [place] [Spiriva Handihaler 18 mcg/dose (30 Dose)] 18 mcg IH DAILY Azithromycin 500 mg PO DAILY #3 tablet 03/30/17 Cephalexin Monohydrate [Keflex 500 mg Capsule] 500 mg PO QID #20 capsule Additional Information: Patient is being discharged home History of Present Illness Patient complains of: Fever shortness of breath History of Present Illness: MICHAELA MONTOYA is a 71 year old male with history of coronary artery disease, dyslipidemia, hypertension, COPD who continues to smoke, CVA, seizures, hypothyroidism who presented from home with fever and confusion. The patient reports that he has been having a mildly productive cough for about 1 week. This morning he developed a fever of 101.1 and became quite confused according to the spouse. Apparently he did not know where he was; even though he recognized the he did not remember her name; and he kept asking about "someone who is coming to take the dog". When seen initially in the emergency room patient was still complaining of productive cough, and was alert oriented 2 [he cannot remember the month thought that was 1997]. At the time of my exam the patient is fully oriented. He denies any chest pain, reports mild shortness of breath. Denies nausea, vomiting, diarrhea, headache, no focal neurologic deficit. He admits that he has been having generalized weakness over the past 1 week. Chest x-ray done in the emergency room revealed patchy airspace disease in the right middle lobe. EKG revealed sinus rhythm with Q waves in the anteriorly. WBC was 18.5, hemoglobin 13.3 platelets 133. Sodium was 142 potassium 3.8 creatinine 0.8. Lactic acid 1.4. NT-pro-B natruretic peptide was 886. He has history of anaphylactic reaction to moxifloxacin, penicillin, tetracycline reporting "throat swelling" with all of them. She has been started on empiric IV ceftriaxone and azithromycin in the emergency room Hospital Course Hospital Course: Upon admission, patient was febrile at 101.1, somewhat confused and disoriented. Chest x-ray showed a right middle lobe infiltrate. He was admitted and started on empiric IV ceftriaxone and azithromycin. He has improved significantly since admission. His altered mental status has resolved. He has been afebrile for the past 48 hours, and his leukocytosis has completely resolved. Sputum and blood cultures are negative to date. Patient has been up, and ambulating in the hallways. He is requesting to be discharged home today. I will discharge him home on oral azithromycin and Keflex [he has history of anaphylactic reaction to penicillin, tetracycline, moxifloxacin]. He will follow-up with his primary care physician at the [facility] Physical Exam Vital Signs: Temp Pulse Resp BP Pulse Ox 99.1 F 87 18 128/68 H 96 03/30/17 11:31 03/30/17 11:31 03/30/17 11:31 03/30/17 11:31 03/30/17 11:31 Intake & Output 03/29/17 03/30/17 03/31/17 06:59 06:59 06:59 Intake Total 3006 910 Output Total 1075 1320 Balance 1931 -410 Weight 73.7 kg General appearance: PRESENT: no acute distress, cooperative, well-developed Head exam: PRESENT: atraumatic, normocephalic Eye exam: PRESENT: conjunctiva pink, EOMI Respiratory exam: PRESENT: decreased breath sounds, symmetrical, unlabored. ABSENT: accessory muscle use, chest wall tenderness, clear to auscultation jaja, crackles, prolonged expiratory phas, rales, retraction, rhonchi, stridor, tachypnea, wheezes, other Cardiovascular exam: PRESENT: RRR, +S1, +S2. ABSENT: bradycardia, clicks, diastolic murmur, gallop, irregular rhythm, rubs, systolic murmur, tachycardia, other GI/Abdominal exam: PRESENT: normal bowel sounds, soft. ABSENT: ascites, diminished bowel sounds, distended, firm, guarding, hernia, hyperactive bowel sounds, hypoactive bowel sounds, mass, Hope's sign, organolmegaly, rebound, rigid, tenderness, other Neurological exam: PRESENT: alert, awake, oriented to person, oriented to place , oriented to time, oriented to situation, reflexes normal, CN II-XII grossly intact, normal gait Psychiatric exam: PRESENT: appropriate affect, normal mood. ABSENT: agitated, anxious, depressed, flat affect, homicidal ideation, manic, suicidal ideation, unusual affect, other Results Laboratory Results: 03/30/17 06:58 03/30/17 06:58 03/30/17 03/30/17 06:58 06:58 WBC 11.1 H RBC 3.96 L Hgb 12.2 L Hct 35.7 L MCV 90 MCH 30.8 MCHC 34.1 RDW 12.8 Plt Count 210 Seg Neutrophils % 72.8 Lymphocytes % 13.7 Monocytes % 12.4 Eosinophils % 0.7 Basophils % 0.4 Absolute Neutrophils 8.1 Absolute Lymphocytes 1.5 Absolute Monocytes 1.4 Absolute Eosinophils 0.1 Absolute Basophils 0.0 Sodium 142.9 Potassium 3.7 Chloride 107 Carbon Dioxide 28 Anion Gap 8 BUN 9 Creatinine 0.68 Est GFR ( Amer) > 60 Est GFR (Non-Af Amer) > 60 Glucose 84 Calcium 8.3 L 03/27/17 19:16 Clean Catch Midstream Urine Culture - Final Enterococcus Faecalis(Group D) 03/27/17 03/28/17 03/28/17 17:40 00:30 04:49 Troponin I < 0.012 < 0.012 < 0.012 Impressions: Chest X-Ray 03/27/17 12:42 IMPRESSION: Patchy airspace disease in the lateral segment right middle lobe worrisome for pneumonia Status: Image reviewed by me Qualifiers PATEINT BEING DISCHARGED WITH ANY OF THE FOLLOWING DIAGNOSIS?: No Plan Time Spent: Greater than 30 Minutes - Reviewed the discharge diagnosis and discharge plan with the patient and his spouse was by the bedside. I have addressed all their concerns and answered their questions. The patient understands that he will be following with his physician at the [facility] within 1-2 weeks.
[2017-03-30 14:57] VITALS: BP 156/48
== END 2017-03-30 14:33 | disposition home or self-care (01) | DRG 194 ==
LOC: ER 12:31 → EH 14:46 → 4N 20:44
PROVIDERS: ADMIT Emergency Medicine; ATTEND Emergency Medicine
PROC: 3E0F73Z Introduction of Anti-inflammatory into Respiratory Tract, Via Natural or Artificial Opening (ICD-10-PCS; principal; 2017-03-27)
DX: J18.1 Lobar pneumonia, unspecified organism (principal); J44.0 Chronic obstructive pulmonary disease with (acute) lower respiratory infection; I25.10 Atherosclerotic heart disease of native coronary artery without angina pectoris; G89.29 Other chronic pain; E03.9 Hypothyroidism, unspecified; F17.210 Nicotine dependence, cigarettes, uncomplicated; Z66 Do not resuscitate; E78.5 Hyperlipidemia, unspecified; I10 Essential (primary) hypertension; M19.90 Unspecified osteoarthritis, unspecified site; Z79.899 Other long term (current) drug therapy; Z86.73 Personal history of transient ischemic attack (TIA), and cerebral infarction without residual deficits; Z88.3 Allergy status to other anti-infective agents; Z88.0 Allergy status to penicillin
CPT/HCPCS: 36415; 71010; 80048; 80053; 80307; 81001; 82550; 82803; 83605; 83690; 83880; 84484; 85025; 87040; 87086; 87088; 87186; 87804; 93005; 93010; 94640; 99285; G8978-GP; G8979-GP; G8980-GP; G8987-GO; G8988-GO; G8989-GO; J0456; J0696; J1650; J3490; J7030; J7060; J7512

== ENCOUNTER 2017-11-04 10:32 | Inpatient (IN) | payer OTHER, MEDICARE ==
--- NOTE | 2017-11-04 11:09 | ER Document Report ---
ED Medical Screen (RME) - General Chief Complaint: Fall Injury Stated Complaint: FALL DIZZY NECK PAIN Time Seen by Provider: 11/04/17 10:59 Notes: RAPID MEDICAL EVALUATION DISCLOSURE I have seen this patient as part of a Rapid Medical Evaluation and, if applicable, placed any initially appropriate orders. The patient will be seen and fully evaluated, including a full history and physical exam, by a provider ( in Main ED or Fast Track) when a room becomes available. 72-year-old male here with complaints of lightheadedness ongoing for the past 1 week ever since he fell and hit his head. He had not gone to see a physician about the head injury 1 week ago. He does have some neck "grinding" ever since the fall. His lightheadedness is worse with going from a sitting to standing position. However he still has some lightheadedness even when he is sitting still. He is having trouble walking due to lightheadedness. He denies any chest pain shortness of breath nausea vomiting diarrhea. EXAM CTAB RRR TRAVEL OUTSIDE OF THE [place] IN LAST 30 DAYS: No - Related Data Allergies/Adverse Reactions: moxifloxacin [Moxifloxacin] Allergy (Verified 07/26/16 14:20) swell Penicillins Allergy (Verified 07/26/16 14:20) swell tetracycline [Tetracycline] Allergy (Verified 07/26/16 14:20) swell Past Medical History - Social History Chew tobacco use (# tins/day): No Frequency of alcohol use: Rare Drug Abuse: None - Past Medical History Cardiac Medical History: Reports: Hx Coronary Artery Disease, Hx Hypercholesterolemia Denies: Hx Heart Attack, Hx Hypertension Pulmonary Medical History: Reports: Hx Bronchitis - hx of, Hx COPD, Hx Pneumonia - hx Denies: Hx Asthma Neurological Medical History: Denies: Hx Cerebrovascular Accident, Hx Seizures Endocrine Medical History: Reports: Hx Hypothyroidism Renal/ Medical History: Denies: Hx Peritoneal Dialysis GI Medical History: Denies: Hx Hepatitis, Hx Hiatal Hernia, Hx Ulcer Musculoskeltal Medical History: Reports Hx Arthritis Infectious Medical History: Denies: Hx Hepatitis Past Surgical History: Reports: Hx Orthopedic Surgery - Right subtalar fusion x2 , Hx Vascular Surgery - Left carotid endarterectomy. Denies: Hx Open Heart Surgery, Hx Pacemaker - Immunizations Hx Diphtheria, Pertussis, Tetanus Vaccination: Yes History of Influenza Vaccine for 02/2017 - 07/2017 Season: Yes Influenza Administration Date for 02/2017 - 07/2017 Season: 02/27/17 Physical Exam - Vital signs Vitals: Temp Pulse Resp BP Pulse Ox 97.7 F 91 18 116/56 L 97 11/04/17 10:47 11/04/17 10:47 11/04/17 10:47 11/04/17 10:47 11/04/17 10:47 Course - Vital Signs Vital signs: Temp Pulse Resp BP Pulse Ox 97.7 F 91 18 116/56 L 97 11/04/17 10:47 11/04/17 10:47 11/04/17 10:47 11/04/17 10:47 11/04/17 10:47
[2017-11-04 11:45] LABS: ABSOLUTE EOSINOPHILS # (AUTO) 0.2 10^3/uL (0.0-0.6); ABSOLUTE LYMPHOCYTES (AUTO) 1.1 10^3/uL (0.5-4.7); ABSOLUTE MONOCYTES (AUTO) 0.7 10^3/uL (0.1-1.4); ABSOLUTE NEUT (AUTO) 6.8 10^3/uL (1.7-8.2); BASOPHILS % (AUTO) 0.2 % (0-2); EOSINOPHILS % (AUTO) 2.1 % (0-6); HEMATOCRIT 41.6 % (37.9-51.0); HEMOGLOBIN 14.1 g/dL (13.5-17.0); LYMPHOCYTES % (AUTO) 12.5 % (13-45); MEAN CORPUSCULAR HEMOGLOBIN 30.4 pg (27.0-33.4); MEAN CORPUSCULAR HGB CONC 33.8 g/dL (32.0-36.0); MEAN CORPUSCULAR VOLUME 90 fl (80-97); MONOCYTES % (AUTO) 8.2 % (3-13); PLATELET COUNT 239 10^3/uL (150-450); RED BLOOD COUNT 4.62 10^6/uL (4.35-5.55); RED CELL DISTRIBUTION WIDTH 13.4 % (11.5-14.0); TOTAL CELLS COUNTED % (AUTO) 100 %; WHITE BLOOD COUNT 8.8 10^3/uL (4.0-10.5)
--- NOTE | 2017-11-04 11:52 | RADIOLOGY REPORT (SQ) ---
EXAM DESCRIPTION: CT HEAD WITHOUT COMPLETED DATE/TIME: 11/04/2017 11:41 am REASON FOR STUDY: s/p fall, lightheaded COMPARISON: None. TECHNIQUE: Axial images acquired through the brain without intravenous contrast. Images reviewed wi th bone, brain and subdural windows. Additional sagittal and coronal reconstructions were generated. Images stored on PACS. All CT scanners at this facility use dose modulation, iterative reconstruction, and/or weight based d osing when appropriate to reduce radiation dose to as low as reasonably achievable (ALARA). [facility]: Dose Right [facility]: CareDose [facility]: Dose Right [facility]: Teradose 4D [facility]: Smart Radiation Watch RADIATION DOSE: CT Rad equipment meets quality standard of care and radiation dose reduction techniq ues were employed. CTDIvol: 53.2 mGy. DLP: 1070 mGy-cm. mGy. LIMITATIONS: None. FINDINGS: VENTRICLES: Prominent. CEREBRUM: No masses. No hemorrhage. No midline shift. Areas of low density in the white matter mos t likely due to chronic micro-vascular ischemic change. No evidence for acute infarction. CEREBELLUM: No masses. No hemorrhage. No alteration of density. No evidence for acute infarction. EXTRAAXIAL SPACES: Mild age-related involutional change. No fluid collections. No masses. ORBITS AND GLOBE: No intra- or extraconal masses. Normal contour of globe without masses. CALVARIUM: No fracture. PARANASAL SINUSES: No fluid or mucosal thickening. SOFT TISSUES: No mass or hematoma. OTHER: No other significant finding. IMPRESSION: MILD CHRONIC CHANGES OF ATROPHY AND MICROVASCULAR ISCHEMIA. NO ACUTE PROCESS. EVIDENCE OF ACUTE STROKE: NO. TECHNICAL DOCUMENTATION: JOB ID: [id number] Quality ID # [id number]: Final reports with documentation of one or more dose reduction techniques (e.g., Au tomated exposure control, adjustment of the mA and/or kV according to patient size, use of iterative reconstruction technique) 2010 [employer]- All Rights Reserved Reading location - IP/workstation name: [email or web address]
--- NOTE | 2017-11-04 11:53 | RADIOLOGY REPORT (SQ) ---
EXAM DESCRIPTION: CT CERVICAL SPINE WITHOUT COMPLETED DATE/TIME: 11/04/2017 11:41 am REASON FOR STUDY: s/p fall, lightheaded COMPARISON: None. TECHNIQUE: Axial images acquired through the cervical spine without intravenous contrast. Images re viewed with lung, soft tissue and bone windows. Reconstructed coronal and sagittal MPR images review ed. Images stored on PACS. All CT scanners at this facility use dose modulation, iterative reconstruction, and/or weight based d osing when appropriate to reduce radiation dose to as low as reasonably achievable (ALARA). [facility]: Dose Right [facility]: CareDose [facility]: Dose Right [facility]: Teradose 4D [facility]: Smart [employer] RADIATION DOSE: CT Rad equipment meets quality standard of care and radiation dose reduction techniq ues were employed. CTDIvol: 15.8 mGy. DLP: 346 mGy-cm. mGy. LIMITATIONS: None. FINDINGS: ALIGNMENT: Anatomic. MINERALIZATION: Normal. VERTEBRAL BODIES: No fractures or dislocation. DISCS: Multilevel disc space narrowing with osteophytes. FACETS, LATERAL MASSES, POSTERIOR ELEMENTS: Facet arthropathy. No fractures. No dislocation. No ac estrada findings. HARDWARE: None in the spine. VISUALIZED RIBS: No fractures. LUNG APICES AND SOFT TISSUES: No significant or acute findings. OTHER: No other significant finding. IMPRESSION: CHRONIC DEGENERATIVE CHANGES. NO ACUTE FINDINGS. TECHNICAL DOCUMENTATION: JOB ID: [id number] Quality ID # [id number]: Final reports with documentation of one or more dose reduction techniques (e.g., Au tomated exposure control, adjustment of the mA and/or kV according to patient size, use of iterative reconstruction technique) 2010 [employer]- All Rights Reserved Reading location - IP/workstation name: [email or web address]
[2017-11-04 12:00] LABS: ALANINE AMINOTRANSFERASE 26 U/L (21-72); ALBUMIN 3.9 g/dL (3.5-5.0); ALKALINE PHOSPHATASE 64 U/L (38-126); ANION GAP 8 (5-19); ASPARTATE AMINO TRANSFERASE 27 U/L (17-59); BILIRUBIN,DIRECT 0.3 mg/dL (0.0-0.4); BILIRUBIN,TOTAL 0.6 mg/dL (0.2-1.3); BLOOD UREA NITROGEN 16 mg/dL (7-20); CALCIUM 9.1 mg/dL (8.4-10.2); CARBON DIOXIDE 32 mmol/L (22-30); CHLORIDE 103 mmol/L (98-107); GLUCOSE 94 mg/dL (75-110); PHOSPHORUS 2.7 mg/dL (2.5-4.5); POTASSIUM 4.4 mmol/L (3.6-5.0); SODIUM 143.3 mmol/L (137-145); TOTAL PROTEIN 6.4 g/dL (6.3-8.2)
[2017-11-04 14:16] LABS: APPEARANCE,URINE SLIGHTLY-CLOUDY; BILIRUBIN,URINE NEGATIVE (NEGATIVE); COLOR,URINE YELLOW; GLUCOSE, URINE NEGATIVE (NEGATIVE); KETONES,URINE NEGATIVE (NEGATIVE); LEUKOCYTE ESTERASE,URINE NEGATIVE (NEGATIVE); NITRITE,URINE NEGATIVE (NEGATIVE); PROTEIN,URINE NEGATIVE (NEGATIVE); URINE SPECIFIC GRAVITY 1.011; UROBILINOGEN,URINE NEGATIVE mg/dL (<2.0)
--- NOTE | 2017-11-04 16:46 | ER Document Report ---
ED General - General Chief Complaint: Fall Injury Stated Complaint: FALL DIZZY NECK PAIN Time Seen by Provider: 11/04/17 10:59 Notes: 72-year-old male presents emergency department with complaints of dizziness and multiple falls at home. Patient states that about a week ago he was walking around his house when he became dizzy and then states that he blacked out and fell to the ground. states that he was not out for more than 1-2 minutes but when he woke up he was quite confused, he did hit his head but she states it was not very hard and that he had confusion, disorientation and repetitive questioning for the next several hours. Patient has been having intermittent headaches since then and states he has a pain and grinding in his neck since then as well. He cannot think of anything specific that provokes the dizzy spells which she states as feeling like he is about to fall over. Denies vertiginous feelings, denies feeling like the world spinning around him, denies any numbness, tingling or focal weakness just generalized weakness with the dizzy spells. Patient states he has had frequent falls since then but they have only resulted in skin tears no other injuries. Denies any chest pain with the dizzy spells but admits heart racing with the dizzy spells. Denies nausea, vomiting, diarrhea. Does not take any blood thinners. Has a history of atrial fibrillation. TRAVEL OUTSIDE OF THE [place] IN LAST 30 DAYS: No - Related Data Allergies/Adverse Reactions: moxifloxacin [Moxifloxacin] Allergy (Verified 07/26/16 14:20) swell Penicillins Allergy (Verified 07/26/16 14:20) swell tetracycline [Tetracycline] Allergy (Verified 07/26/16 14:20) swell Past Medical History - General Information source: Patient - Social History Smoking Status: Current Every Day Smoker Chew tobacco use (# tins/day): No Frequency of alcohol use: Rare Drug Abuse: None Family History: Other - Father with atrial fibrillation who eventually required a pacemaker. Patient has suicidal ideation: No Patient has homicidal ideation: No - Past Medical History Cardiac Medical History: Reports: Hx Atrial Fibrillation, Hx Coronary Artery Disease, Hx Hypercholesterolemia Denies: Hx Heart Attack, Hx Hypertension Pulmonary Medical History: Reports: Hx Bronchitis - hx of, Hx COPD, Hx Pneumonia - hx Denies: Hx Asthma Neurological Medical History: Denies: Hx Cerebrovascular Accident, Hx Seizures Endocrine Medical History: Reports: Hx Hypothyroidism Renal/ Medical History: Denies: Hx Peritoneal Dialysis GI Medical History: Denies: Hx Hepatitis, Hx Hiatal Hernia, Hx Ulcer Musculoskeltal Medical History: Reports Hx Arthritis Infectious Medical History: Denies: Hx Hepatitis Past Surgical History: Reports: Hx Orthopedic Surgery - Right subtalar fusion x2 , Hx Vascular Surgery - Left carotid endarterectomy. Denies: Hx Open Heart Surgery, Hx Pacemaker - Immunizations Hx Diphtheria, Pertussis, Tetanus Vaccination: Yes Review of Systems - Review of Systems Constitutional: See HPI, Weakness EENT: No symptoms reported Cardiovascular: See HPI Respiratory: No symptoms reported Gastrointestinal: No symptoms reported Musculoskeletal: See HPI Neurological/Psychological: See HPI -: Yes All other systems reviewed and negative Physical Exam - Vital signs Vitals: Temp Pulse Resp BP Pulse Ox 97.7 F 91 18 116/56 L 97 11/04/17 10:47 11/04/17 10:47 11/04/17 10:47 11/04/17 10:47 11/04/17 10:47 Interpretation: Normal - Notes Notes: GENERAL: Alert, interacts well. No acute distress. HEAD: Normocephalic, atraumatic EYES: Pupils equal, round and reactive to light, extraocular movements intact. ENT: Oral mucosa moist, tongue midline. NECK: Full range of motion, supple, trachea midline. LUNGS: Clear to auscultation bilaterally, no wheezes, rales or rhonchi, no respiratory distress. HEART: Regular rate and rhythm, no gallops or rubs. Not currently in atrial fibrillation. ABDOMEN: Soft, nontender, nondistended, bowel sounds present in all 4 quadrants. EXTREMITIES: Moves all 4 extremities spontaneously, no edema, radial and dorsalis pedis pulses 2/4 bilaterally. No cyanosis. Patient does have a fusion at the right ankle which makes it very difficult for him to flex or extend the right ankle although he can lift his leg without difficulty and move his toes. NEUROLOGICAL: Alert and oriented x3, normal speech, cranial nerves II through XII grossly intact, biceps and patellar DTRs 2+ bilaterally. Finger to nose test intact. PSYCH: Normal mood, normal affect. SKIN: Warm, Dry, normal turgor, multiple ecchymoses, superficial skin tears to the left forearm which are healing well, no surrounding erythema or signs of secondary bacterial infection. Course - Re-evaluation Re-evalutation: 11/04/17 16:45 CBC unremarkable, CMP unremarkable, urinalysis unremarkable, CT scan of head and neck do not show any acute process. There is chronic microvascular ischemic changes, no bleed, no evidence of subacute stroke. EKG is nonischemic. I am concerned particularly with his history of atrial fibrillation and rapid heart rate preceding this that the patient may have arrhythmias that are causing him to lose consciousness or become presyncopal. Discussed with Dr. Carr the hospitalist who agrees to admit the patient to her service for syncope, near syncope and multiple falls. - Vital Signs Vital signs: Temp Pulse Resp BP Pulse Ox 97.7 F 91 16 136/67 H 97 11/04/17 10:47 11/04/17 10:47 11/04/17 15:32 11/04/17 15:32 11/04/17 15:34 - Laboratory Result Diagrams: 11/04/17 11:24 11/04/17 11:24 Laboratory results interpreted by me: 11/04/17 11/04/17 11:24 11:24 Lymphocytes % 12.5 L Carbon Dioxide 32 H - EKG Interpretation by Me Additional EKG results interpreted by me: 11/04/17 16:46 EKG shows sinus rhythm at a rate of 73, slight left axis deviation, normal intervals, no ST segment elevations or depressions, no T-wave inversions per my interpretation. Discharge - Discharge Clinical Impression: Syncope and collapse, Palpitations, Dizziness Condition: Fair Disposition: ADMITTED INPATIENT Admitting Provider: Hospitalist - [facility] Admitted: Telemetry Referrals: ZAINAB ACEVES MD [Primary Care Provider] - Follow up as needed
[2017-11-04] MEDS ORDERED: ACETAMINOPHEN 325 MG TABLET PO PRN (17:36)
[2017-11-04] MEDS ORDERED: ONDANSETRON HCL INJ/PF 4 MG/2 ML SDV IV PRN (17:36)
[2017-11-04] MEDS ORDERED: IPRATROPIUM/ALBUTEROL 0.5-2.5 MG/3 ML AMPUL NEB PRN (17:36)
[2017-11-04] MEDS ORDERED: RINGERS SOLUTION,LACTATED 1,000 ML IV PRN (17:36)
[2017-11-04] MEDS ORDERED: TEMAZEPAM 7.5 MG CAPSULE PO PRN (17:36)
--- NOTE | 2017-11-04 18:12 | PDOC H&P ---
History of Present Illness Admission Date/PCP: 11/04/17 17:08 ZAINAB ACEVES MD Patient complains of: Dizziness and LOC for few seconds, multiple falls History of Present Illness: MICHAELA MONTOYA is a 72 year old male Patient presents to the emergency room with complaints of dizziness and multiple falls at home. Patient states said the symptoms started about a week ago and he became dizzy and blacked out and fell to the ground. He was apparently confused after this episode. Patient has had about another 3-4 episodes since then and he had his last episode today although he did not pass out. He denies any associated chest pain nausea or vomiting. He denied any fever cough diaphoresis melena or any other pertinent symptoms. Patient apparently has a history of atrial fibrillation however he is on no medications for that. He did complain of dizzy spells associated with his heart racing. Past Medical History Cardiac Medical History: Reports: Atrial Fibrillation, Coronary Artery Disease, Hyperlipidema Denies: Myocardial Infarction, Hypertension Pulmonary Medical History: Reports: Bronchitis - hx of, Chronic Obstructive Pulmonary Disease (COPD), Pneumonia - hx Denies: Asthma Neurological Medical History: Denies: Seizures Endocrine Medical History: Reports: Hypothyroidism GI Medical History: Denies: Hepatitis, Hiatal Hernia Musculoskeltal Medical History: Reports: Arthritis Hematology: Denies: Anemia, Sickle Cell Disease Past Surgical History Past Surgical History: Reports: Orthopedic Surgery - Right subtalar fusion x2, Vascular Surgery - Left carotid endarterectomy Denies: Pacemaker Social History Information Source: Patient Smoking Status: Current Every Day Smoker Frequency of Alcohol Use: None Hx Recreational Drug Use: No Drugs: None Hx Prescription Drug Abuse: No - Advance Directive Resuscitation Status: Full Code Surrogate healthcare decision maker:: Spouse Family History Family History: Other - Father with atrial fibrillation who eventually required a pacemaker. Parental Family History Reviewed: Yes Children Family History Reviewed: No Sibling(s) Family History Reviewed.: No Medication/Allergy Home Medications: Albuterol Sulfate [Ventolin 0.042% Neb 1.25 mg/3 mL Ampul] 3 ml NEB RTTID Ammonium Lactate [Lac-Hydrin 12% Lotion 225Gm/Bottle] 1 applic TOP DAILY Budesonide/Formoterol Fumarate [Symbicort HFA 160-4.5 mcg Inhaler 6 gm] 2 puff IH Q12 03/27/17 Bupropion HCl [Wellbutrin Xl 150 mg 24hr Tablet] 150 mg PO WSUPPER 03/27/17 Cholecalciferol (Vitamin D3) [Vitamin D3 1000 Unit Tablet] 1,000 unit PO DAILY 03/27/17 Gabapentin [Neurontin 300 mg Capsule] 300 mg PO 5XD 03/27/17 Ibuprofen [Motrin 800 mg Tablet] 800 mg PO DAILYP PRN 03/27/17 Levothyroxine Sodium [Synthroid] 75 mcg PO QAM 03/27/17 Lidocaine [Lidoderm 5% (700 mg) Transdermal Patch] 1 patch TOP DAILY 03/27/17 Morphine Sulfate [Morphine Ir 30 mg Tablet] 30 mg PO QAM 03/27/17 Morphine Sulfate [Morphine Sulfate ER] 30 mg PO QPM 03/27/17 Multivit-Minerals/FA/Lycopene [One Daily For Men Tablet] 1 tab PO DAILY Pravastatin Sodium [Pravachol] 80 mg PO QHS 03/27/17 Prednisone [Deltasone 5 mg Tablet] 5 mg PO QAM 03/27/17 Tiotropium [place] [Spiriva Handihaler 18 mcg/dose (30 Dose)] 18 mcg IH DAILY Azithromycin 500 mg PO DAILY #3 tablet 03/30/17 Cephalexin Monohydrate [Keflex 500 mg Capsule] 500 mg PO QID #20 capsule Allergies/Adverse Reactions: moxifloxacin [Moxifloxacin] Allergy (Verified 07/26/16 14:20) swell Penicillins Allergy (Verified 07/26/16 14:20) swell tetracycline [Tetracycline] Allergy (Verified 07/26/16 14:20) swell Review of Systems All systems: reviewed and no additional remarkable complaints except as stated Physical Exam Vital Signs: Temp Pulse Resp BP Pulse Ox 97.7 F 91 12 156/72 H 97 11/04/17 10:47 11/04/17 10:47 11/04/17 17:01 11/04/17 17:01 11/04/17 17:01 General appearance: PRESENT: no acute distress, well-developed, well-nourished Eye exam: PRESENT: conjunctiva pink, EOMI, PERRLA. ABSENT: scleral icterus Ear exam: PRESENT: normal external ear exam Respiratory exam: PRESENT: clear to auscultation jaja. ABSENT: rales, rhonchi, wheezes Cardiovascular exam: PRESENT: RRR. ABSENT: diastolic murmur, rubs, systolic murmur GI/Abdominal exam: PRESENT: normal bowel sounds, soft. ABSENT: distended, guarding, mass, organolmegaly, rebound, tenderness Neurological exam: PRESENT: alert, awake, oriented to person, oriented to place , oriented to time, oriented to situation, CN II-XII grossly intact. ABSENT: motor sensory deficit Psychiatric exam: PRESENT: appropriate affect, normal mood. ABSENT: homicidal ideation, suicidal ideation Skin exam: PRESENT: dry, intact, warm. ABSENT: cyanosis, rash Results Laboratory Results: 11/04/17 11:24 11/04/17 11:24 MCV 90 fl (80-97) 11/04/17 11:24 MCH 30.4 pg (27.0-33.4) 11/04/17 11:24 MCHC 33.8 g/dL (32.0-36.0) 11/04/17 11:24 RDW 13.4 % (11.5-14.0) 11/04/17 11:24 Seg Neutrophils % 77.0 % (42-78) 11/04/17 11:24 Lymphocytes % 12.5 % (13-45) L 11/04/17 11:24 Monocytes % 8.2 % (3-13) 11/04/17 11:24 Eosinophils % 2.1 % (0-6) 11/04/17 11:24 Basophils % 0.2 % (0-2) 11/04/17 11:24 Absolute Neutrophils 6.8 10^3/uL (1.7-8.2) 11/04/17 11:24 Absolute Lymphocytes 1.1 10^3/uL (0.5-4.7) 11/04/17 11:24 Absolute Monocytes 0.7 10^3/uL (0.1-1.4) 11/04/17 11:24 Absolute Eosinophils 0.2 10^3/uL (0.0-0.6) 11/04/17 11:24 Absolute Basophils 0.0 10^3/uL (0.0-0.2) 11/04/17 11:24 Chloride 103 mmol/L (98-107) 11/04/17 11:24 Carbon Dioxide 32 mmol/L (22-30) H 11/04/17 11:24 Anion Gap 8 (5-19) 11/04/17 11:24 Est GFR ( Amer) > 60 (>60) 11/04/17 11:24 Est GFR (Non-Af Amer) > 60 (>60) 11/04/17 11:24 Glucose 94 mg/dL (75-110) 11/04/17 11:24 Calcium 9.1 mg/dL (8.4-10.2) 11/04/17 11:24 Phosphorus 2.7 mg/dL (2.5-4.5) 11/04/17 11:24 Magnesium 2.3 mg/dL (1.6-2.3) 11/04/17 11:24 Total Bilirubin 0.6 mg/dL (0.2-1.3) 11/04/17 11:24 AST 27 U/L (17-59) 11/04/17 11:24 ALT 26 U/L (21-72) 11/04/17 11:24 Alkaline Phosphatase 64 U/L (38-126) 11/04/17 11:24 Total Protein 6.4 g/dL (6.3-8.2) 11/04/17 11:24 Albumin 3.9 g/dL (3.5-5.0) 11/04/17 11:24 Urine Color YELLOW 11/04/17 13:54 Urine Appearance SLIGHTLY-CLOUDY 11/04/17 13:54 Urine pH 6.0 (5.0-9.0) 11/04/17 13:54 Ur Specific [place] 1.011 11/04/17 13:54 Urine Protein NEGATIVE mg/dL (NEGATIVE) 11/04/17 13:54 Urine Glucose (UA) NEGATIVE mg/dL (NEGATIVE) 11/04/17 13:54 Urine Ketones NEGATIVE mg/dL (NEGATIVE) 11/04/17 13:54 Urine Blood NEGATIVE (NEGATIVE) 11/04/17 13:54 Urine Nitrite NEGATIVE (NEGATIVE) 11/04/17 13:54 Ur Leukocyte Esterase NEGATIVE (NEGATIVE) 11/04/17 13:54 Urine WBC (Auto) 0 /HPF 11/04/17 13:54 Urine RBC (Auto) 1 /HPF 11/04/17 13:54 Impressions: Cervical Spine CT 11/04/17 11:06 IMPRESSION: CHRONIC DEGENERATIVE CHANGES. NO ACUTE FINDINGS. Head CT 11/04/17 11:06 IMPRESSION: MILD CHRONIC CHANGES OF ATROPHY AND MICROVASCULAR ISCHEMIA. NO ACUTE PROCESS. EVIDENCE OF ACUTE STROKE: NO. Assessment & Plan - Diagnosis (1) Dizziness Is this a current diagnosis for this admission?: Yes Plan: Etiology is unclear. Patient will be placed on telemetry. I will obtain echocardiogram as well as carotid Doppler studies. If she remains stable overnight likely can be discharged home in a (2) Palpitations Is this a current diagnosis for this admission?: Yes Plan: Patient has a history of atrial fibrillation although he is currently sinus on air sampling and monitoring and EKG. It is possible that his symptoms may be related to atrial fibrillation although there is no clear-cut evidence of this. We will set patient up with a 30 day event monitor at discharge especially if no etiology found overnight (3) Syncope and collapse Is this a current diagnosis for this admission?: Yes Plan: Patient has a history of carotid endarterectomy in 1999. Will obtain carotid Doppler studies for review (4) CAD (coronary artery disease) Qualifiers: Coronary Disease-Associated Artery/Lesion type: unspecified vessel or lesion type Is this a current diagnosis for this admission?: Yes Plan: There is no evidence of acute coronary syndrome but will obtain cardiac enzymes and monitor on telemetry (5) Hypothyroidism Is this a current diagnosis for this admission?: Yes - Time Time Spent: 30 to 50 Minutes Smoking Cessation Education: 3 to 10 minutes Medications reviewed and adjusted accordingly: Yes Anticipated discharge: Home Within: within 24 hours - Inpatient Certification Based on my medical assessment, after consideration of the patient's comorbidities, presenting symptoms, or acuity I expect that the services needed warrant INPATIENT care.: Yes Medical Necessity: Need For Continuous Telemetry Monitoring
[2017-11-04] MEDS ORDERED: ENOXAPARIN SODIUM INJ 40 MG/0.4 ML DISP.SYRIN SUBCUT ONE (18:30)
[2017-11-04] MEDS ORDERED: OXYCODONE HCL IR 5 MG TABLET PO PRN (23:38)
[2017-11-04] MEDS ORDERED: OXYCODONE HCL SR 10 MG TABLET PO ONE (23:45)
--- NOTE | 2017-11-04 23:50 | Progress Note ---
Provider Note Provider Note: Patient's nurse contact MD. patient complains of not receiving his scheduled morphine. Patient admitted with confusion and falls. He has no documented or telemetry alarms for uncontrolled A. fib, his blood pressure is 126/55 pulse of 75 respirations of 15, Is currently without tearing, yawning, diarrhea. Pharmacy is unable to reconcile his medications. Patient's is contacted stating his morphine was refilled November 02, prescribed by either Dr. Charlie Warren pain management versus [facility]. Assessment and plan. Confusion and falls with opiate dependence. Given patient's lack of biophysical findings of withdrawal and concern for contributing factor to his chief complaint. I will order a reduced dose of SR and IR morphine and consult pain management.
--- NOTE | 2017-11-05 07:47 | EKG REPORT ---
SEVERITY:- ABNORMAL ECG - SINUS RHYTHM CONSIDER ANTEROSEPTAL INFARCT : Confirmed by: Joanne Cruz MD 05-Nov-2017 07:46:56
[2017-11-05] MEDS ORDERED: IBUPROFEN 800 MG TABLET PO PRN (09:15)
[2017-11-05] MEDS ORDERED: MORPHINE SULFATE IR 30 MG TABLET PO PRN (09:15)
[2017-11-05] MEDS ORDERED: LEVOTHYROXINE SODIUM PO SCH (09:15)
[2017-11-05] MEDS ORDERED: MORPHINE SULFATE IR 15 MG TABLET PO PRN (09:37)
[2017-11-05] MEDS: GABAPENTIN 300 MG CAPSULE PO SCH ×3 (09:46→15:59)
[2017-11-05] MEDS ORDERED: OXYCODONE HCL SR 10 MG TABLET PO SCH (10:00)
[2017-11-05] MEDS ORDERED: PREDNISONE 5 MG TABLET PO ONE (10:00)
[2017-11-05] MEDS ORDERED: LEVOTHYROXINE SODIUM 0.075 MG TABLET PO ONE (10:00)
[2017-11-05] MEDS ORDERED: ONDANSETRON HCL INJ/PF 4 MG/2 ML SDV IV PRN (10:00)
[2017-11-05] MEDS ORDERED: ENOXAPARIN SODIUM INJ 40 MG/0.4 ML DISP.SYRIN SUBCUT SCH (10:00)
[2017-11-05] MEDS ORDERED: MORPHINE SULFATE IR 30 MG TABLET PO ONE (10:30)
[2017-11-05] MEDS ORDERED: BUPROPION HCL 100 MG TABLET PO SCH (14:00)
[2017-11-05 14:34] LABS: FREE T3 4.78 pg/mL (2.77-5.27); FREE T4 (FREE THYROXINE) 1.48 ng/dL (0.78-2.19)
[2017-11-05 14:48] LABS: THYROID STIMULATING HORMONE 4.48 uIU/mL (0.47-4.68)
--- NOTE | 2017-11-05 17:01 | RADIOLOGY REPORT (SQ) ---
EXAM DESCRIPTION: CAROTID DOPPLER COMPLETED DATE/TIME: 11/05/2017 4:28 pm REASON FOR STUDY: Syncope COMPARISON: None. TECHNIQUE: Grayscale ultrasound, Doppler velocity and spectra, and color Doppler images acquired of the extra-cranial carotid and vertebral arteries. Images stored on PACS. LIMITATIONS: None. FINDINGS: RIGHT CAROTID CCA Velocities: Within normal limits. ICA Velocities Peak systolic 0.98 m/s. End diastolic 0.24 m/s. Proximal ICA/CCA peak systolic ratio 1.2. Spectra normal. No significant plaque. LEFT CAROTID CCA Velocities: Within normal limits. ICA Velocities Peak systolic 1.05 m/s. End diastolic 0.29 m/s. Proximal ICA/CCA peak systolic ratio 1.6. Spectra normal. No significant plaque. VERTEBRAL ARTERIES: Antegrade flow. Normal waveforms. SUBCLAVIAN ARTERIES: No finding. OTHER: No other significant finding. IMPRESSION: NO HEMODYNAMICALLY SIGNIFICANT STENOSIS. COMMENT: Quality ID #[id number]: Velocity criteria are extrapolated from the diameter data as defined by t he Society of Radiologists in Ultrasound Consensus Conference. Radiology 2003: 229; 340-346. TECHNICAL DOCUMENTATION: JOB ID: [id number] [employer]- All Rights Reserved Reading location - IP/workstation name: [email or web address]
[2017-11-05 17:13] VITALS: BP 126/60
--- NOTE | 2017-11-05 18:04 | PDOC DISCHARGE SUMMARY ---
General - Admit/Disc Date/PCP Admission Date/Primary Care Provider: 11/04/17 17:08 ZAINAB ACEVES MD Discharge Date: 11/05/17 - Discharge Diagnosis (1) Orthostatic hypotension Is this a current diagnosis for this admission?: Yes (2) Dizziness Is this a current diagnosis for this admission?: Yes (3) Palpitations Is this a current diagnosis for this admission?: Yes (4) Syncope and collapse Is this a current diagnosis for this admission?: Yes (5) CAD (coronary artery disease) Is this a current diagnosis for this admission?: Yes (6) Hypothyroidism Is this a current diagnosis for this admission?: Yes (7) Chronic, continuous use of opioids Is this a current diagnosis for this admission?: Yes - Additional Information Resuscitation Status: Full Code Discharge Diet: As Tolerated Discharge Activity: Activity As Tolerated Home Medications: Bupropion HCl [Wellbutrin Xl 300mg 24hr Tablet] 300 mg PO WSUPPER 11/04/17 Gabapentin [Neurontin 300 mg Capsule] 300 mg PO 5XD 11/04/17 Levothyroxine Sodium [Synthroid] 0.075 mg PO Q6AM 11/04/17 Morphine Sulfate [Morphine Ir 30 mg Tablet] 30 mg PO QAM 11/04/17 Pravastatin Sodium [Pravachol] 80 mg PO QAM 11/04/17 Prednisone [Deltasone 5 mg Tablet] 5 mg PO QAM 11/04/17 Ibuprofen 800 mg PO DAILY PRN 11/05/17 Morphine Sulfate [Morphine Ir 30 mg Tablet] 15 mg PO Q4HP PRN #0 11/05/17 Morphine Sulfate [Morphine Sulfate ER] 15 mg PO BID@1300,2200 #0 11/05/17 History of Present Illness History of Present Illness: MICHAELA MONTOYA is a 72 year old male Patient presents to the emergency room with complaints of dizziness and multiple falls at home. Patient states said the symptoms started about a week ago and he became dizzy and blacked out and fell to the ground. He was apparently confused after this episode. Patient has had about another 3-4 episodes since then and he had his last episode today although he did not pass out. He denies any associated chest pain nausea or vomiting. He denied any fever cough diaphoresis melena or any other pertinent symptoms. Patient apparently has a history of atrial fibrillation however he is on no medications for that. He did complain of dizzy spells associated with his heart racing. Hospital Course Hospital Course: Patient was admitted with complaint of multiple falls. He was monitored on telemetry floor due to concerns about occult dysrhythmia although there was practically no evidence of that on either EKG or on subsequent telemetry monitoring. He did come out however that patient is on a high and may get dosage of opioids including MS Contin 30 mg every 12 hours and intermediate release 30 mg every 4 hours as needed as well as gabapentin. He became quite irritated and somewhat uncooperative before receiving his opioids. He says he has been on these for at least 18 years for foot pain and he has been unable to get off although he was quite receptive to me decreasing his dosage and appreciated of me trying to at least decrease his dosage while he was in hospital. I have advised him to follow-up with his pain management physician for further tapering of his opioids. Any arrhythmias on telemetry monitoring given patient's age it was felt that he would benefit from 30 day event monitor and so he has been referred to Dr. Hardy who will set him up with one. An echocardiogram will also be done as outpatient. Patient was given information to contact Dr. Cruz's office for follow-up. He was also noted to be orthostatic while in hospital. Patient was asymptomatic. He did receive IV fluids. He has been advised on the need to follow-up with his primary care physician for this also. Carotid Doppler studies done revealed no acute findings Physical Exam Vital Signs: Temp Pulse Resp BP Pulse Ox 97.7 F 82 18 126/60 H 95 11/05/17 17:14 11/05/17 17:14 11/05/17 17:14 11/05/17 17:14 11/05/17 17:14 Intake & Output 11/04/17 11/05/17 11/06/17 06:59 06:59 06:59 Intake Total 652 620 Balance 652 620 Weight 70.7 kg General appearance: PRESENT: no acute distress, thin, well-developed Head exam: PRESENT: atraumatic, normocephalic Eye exam: PRESENT: conjunctiva pink, EOMI, PERRLA. ABSENT: scleral icterus Ear exam: PRESENT: normal external ear exam Mouth exam: PRESENT: moist, tongue midline Neck exam: ABSENT: carotid bruit, JVD, lymphadenopathy, thyromegaly Respiratory exam: PRESENT: clear to auscultation jaja. ABSENT: rales, rhonchi, wheezes Cardiovascular exam: PRESENT: RRR. ABSENT: diastolic murmur, rubs, systolic murmur Pulses: PRESENT: normal dorsalis pedis pul Vascular exam: PRESENT: normal capillary refill GI/Abdominal exam: PRESENT: normal bowel sounds, soft. ABSENT: distended, guarding, mass, organolmegaly, rebound, tenderness Rectal exam: PRESENT: deferred Extremities exam: PRESENT: full ROM. ABSENT: calf tenderness, clubbing, pedal edema Neurological exam: PRESENT: alert, awake, oriented to person, oriented to place , oriented to time, oriented to situation, CN II-XII grossly intact. ABSENT: motor sensory deficit Psychiatric exam: PRESENT: appropriate affect, normal mood. ABSENT: homicidal ideation, suicidal ideation Skin exam: PRESENT: dry, intact, warm. ABSENT: cyanosis, rash Results Laboratory Results: 11/05/17 07:00 Troponin I < 0.012 Impressions: Cervical Spine CT 11/04/17 11:06 IMPRESSION: CHRONIC DEGENERATIVE CHANGES. NO ACUTE FINDINGS. Head CT 11/04/17 11:06 IMPRESSION: MILD CHRONIC CHANGES OF ATROPHY AND MICROVASCULAR ISCHEMIA. NO ACUTE PROCESS. EVIDENCE OF ACUTE STROKE: NO. Carotid Doppler Study 11/05/17 00:00 IMPRESSION: NO HEMODYNAMICALLY SIGNIFICANT STENOSIS. Qualifiers - * PATIENT BEING DISCHARGED WITH ANY OF THE FOLLOWING DIAGNOSIS: No Plan Time Spent: Less than 30 Minutes
[2017-11-05] MEDS ORDERED: ATORVASTATIN CALCIUM 40 MG TABLET PO SCH (22:00)
[2017-11-06] MEDS ORDERED: LEVOTHYROXINE SODIUM 0.075 MG TABLET PO SCH (06:00)
[2017-11-06] MEDS ORDERED: MORPHINE SULFATE IR 30 MG TABLET PO SCH (08:00)
[2017-11-06] MEDS ORDERED: PREDNISONE 5 MG TABLET PO SCH (08:00)
== END 2017-11-05 17:24 | disposition home or self-care (01) | DRG 312 ==
LOC: ER 10:32 → EH 17:08 → 5 19:39
PROVIDERS: ADMIT Internal Medicine; ATTEND Internal Medicine
PROC: 3E0F73Z Introduction of Anti-inflammatory into Respiratory Tract, Via Natural or Artificial Opening (ICD-10-PCS; principal; 2017-11-05)
DX: I95.1 Orthostatic hypotension (principal); I25.10 Atherosclerotic heart disease of native coronary artery without angina pectoris; E03.9 Hypothyroidism, unspecified; R00.2 Palpitations; R42 Dizziness and giddiness; E78.00 Pure hypercholesterolemia, unspecified; J44.9 Chronic obstructive pulmonary disease, unspecified; F17.210 Nicotine dependence, cigarettes, uncomplicated; M19.90 Unspecified osteoarthritis, unspecified site; Z79.891 Long term (current) use of opiate analgesic; Z79.899 Other long term (current) drug therapy; Z91.81 History of falling; Z79.52 Long term (current) use of systemic steroids; Z88.3 Allergy status to other anti-infective agents; Z88.0 Allergy status to penicillin
CPT/HCPCS: 36415; 70450; 72125; 80053; 81001; 83735; 84100; 84439; 84443; 84481; 84484; 85025; 93005; 93010; 93880; 99284; J3490; J7512

== ENCOUNTER → 2017-12-13 | Outpatient (CLI) | payer OTHER ==
--- NOTE | 2017-12-14 07:40 | RADIOLOGY REPORT (SQ) ---
EXAM DESCRIPTION: PET CT SKULL/THIGH COMPLETED DATE/TIME: 12/13/2017 7:41 pm REASON FOR STUDY: ABNORMAL FINDINGS OF LUNG FIELD R91.8 OTHER NONSPECIFIC ABNORMAL FINDING OF LUNG FIELD COMPARISON: Outside CT lung screening report, [facility] 12/07/2017 CT chest 04/08/2016 RADIONUCLIDE AND DOSE: 12.1 mCi F18 FDG The route of agent administration: Intravenous FASTING BLOOD SUGAR: 93 mg/dl CONTRAST TYPE AND DOSE: No CT contrast given. TECHNIQUE: Blood glucose level was verified. Above dose of FDG was injected intravenously. 2-D seg mented attenuation correction images were obtained from the base of the skull to the midthighs. Nonc ontrast CT images were obtained for attenuation correction and fusion with emission images. CT image s were performed without oral or intravenous contrast and are not sensitive for parenchymal lesions. A series of overlapping emission PET images were obtained. Images reviewed and manipulated at [facility] work station by the radiologist. Images stored on PACS. LIMITATIONS: None. FINDINGS: HEAD AND NECK: No areas of abnormal metabolic activity in the soft tissues of the head and neck. CHEST: In the left posterior lung base, a 3 x 2 cm mass is present with spiculated margins on axial i mage 130. This has SUV of 6.0 and is suspicious for malignancy. There are 3 smaller less than 1.5 cm nodules in the extreme inferior left posterior costophrenic sulc us. These are non metabolic. Tiny noncalcified subpleural granulomas bilaterally less than 5 mm in size, non metabolic. A 0.8 x 0.5 cm pretracheal lymph node is present on axial image 95 with SUV of 2.9. There is a 1.6 x 0.8 cm precarinal lymph node on image 100 with SUV of 2.2 at baseline. ABDOMEN AND PELVIS: No areas of abnormal metabolic activity in the abdomen or pelvis. Expected physi ologic activity is present in the genitourinary system and bowel. PROXIMAL LOWER EXTREMITIES: No areas of abnormal metabolic activity in the soft tissues of the lower extremities. BONES: No abnormal metabolic activity in the visualized skeleton. ADDITIONAL CT FINDINGS: The right carotid bifurcation calcification, obstructive lung disease, gyneco mastia, tiny hiatal hernia, atherosclerotic aortoiliac calcification without aneurysm. OTHER: Liver background activity 2.2 SUV. Blood pool background activity 1.8 SUV IMPRESSION: Hypermetabolic mass in the left posterior lung base worrisome for primary lung tumor. 0 .8 x 0.5 cm metabolically active pretracheal lymph node. TECHNICAL DOCUMENTATION: JOB ID: [id number] [employer]- All Rights Reserved Reading location - IP/workstation name: [email or web address]
== END ==
LOC: RAD 17:00
PROVIDERS: ATTEND Clinical Nurse Specialist Adult Health
DX: R91.8 Other nonspecific abnormal finding of lung field (principal)
CPT/HCPCS: 78815; A9552

== ENCOUNTER 2018-01-06 08:45 | Day surgery (SDC) | payer OTHER ==
[2018-01-06 09:16] LABS: HEMATOCRIT 39.3 % (37.9-51.0); HEMOGLOBIN 13.3 g/dL (13.5-17.0); MEAN CORPUSCULAR HEMOGLOBIN 30.6 pg (27.0-33.4); MEAN CORPUSCULAR HGB CONC 33.8 g/dL (32.0-36.0); MEAN CORPUSCULAR VOLUME 91 fl (80-97); PLATELET COUNT 210 10^3/uL (150-450); RED BLOOD COUNT 4.34 10^6/uL (4.35-5.55); RED CELL DISTRIBUTION WIDTH 13.4 % (11.5-14.0); WHITE BLOOD COUNT 8.7 10^3/uL (4.0-10.5)
[2018-01-06 09:23] LABS: INTERNATIONAL RATION (INR) 1.07; PROTHROMBIN TIME 14.4 SEC (11.4-15.4)
[2018-01-06 09:24] LABS: PARTIAL THROMBOPLASTIN TIME 34.4 SEC (23.5-35.8)
[2018-01-06 09:35] LABS: BLOOD UREA NITROGEN 17 mg/dL (7-20)
[2018-01-06] MEDS ORDERED: LIDOCAINE 1% INJ-PF (10 MG/ML) 30 ML SDV ONE (11:14)
[2018-01-06] MEDS ORDERED: FENTANYL CITRATE INJ/PF 100 MCG/2 ML AMPUL ONE (11:14)
[2018-01-06] MEDS ORDERED: MIDAZOLAM 2 MG/2 ML INJ ONE (11:14)
--- NOTE | 2018-01-06 12:36 | RADIOLOGY REPORT (SQ) ---
EXAM DESCRIPTION: CHEST SINGLE VIEW COMPLETED DATE/TIME: 01/06/2018 12:28 pm REASON FOR STUDY: ABNORMAL FINDING OF LUNG FIELD-- POST LEFT LUNG BIOPSY COMPARISON: PET-CT dated 12/13/2017, chest x-ray dated 03/27/2017 EXAM PARAMETERS: NUMBER OF VIEWS: One view. TECHNIQUE: Single frontal radiographic view of the chest acquired. RADIATION DOSE: NA LIMITATIONS: None. FINDINGS: LUNGS AND PLEURA: No pneumothorax immediately following left lung biopsy. Spiculated nodu le in the left base is noted. No consolidation. MEDIASTINUM AND HILAR STRUCTURES: No masses. Contour normal. HEART AND VASCULAR STRUCTURES: Heart normal in size. Normal vasculature. BONES: No acute findings. HARDWARE: None in the chest. OTHER: No other significant finding. IMPRESSION: No pneumothorax following left lung biopsy. TECHNICAL DOCUMENTATION: JOB ID: [id number] [employer]- All Rights Reserved Reading location - IP/workstation name: [email or web address]
--- NOTE | 2018-01-06 12:39 | RADIOLOGY REPORT (SQ) ---
EXAM DESCRIPTION: CT BIOPSY LUNG/MEDIASTINUM; CT NEEDLE PLACEMENT COMPLETED DATE/TIME: 01/06/2018 12:18 pm REASON FOR STUDY: ABNORMAL FINDING OF LUNG FIELD R91.8 OTHER NONSPECIFIC ABNORMAL FINDING OF LUNG F IELD COMPARISON: PET-CT 12/13/2017 TECHNIQUE: CT guided biopsy of the left lower lobe lung parenchymal nodule performed with conscious sedation. CT Fluoroscopy Time: 4.[address] scanners at this facility use dose modulation, iterative reconstruction, and/or weight based d osing when appropriate to reduce radiation dose to as low as reasonably achievable (ALARA). [facility]: Dose Right [facility]: CareDose [facility]: Dose Right [facility]: Teradose 4D [facility]: SHADO RADIATION DOSE: mGy. FINDINGS: After obtaining informed consent and explaining the risks and benefits of conscious sedati on,the patient agreed to the procedure. Prior to the procedure, a time out was performed to verify th e patient's identity and planned procedure. IV sedation was administered and physician direction by the registered nurse using 1 milligrams of Ve rsed and 25 micrograms of fentanyl, for conscious sedation. Physiologic monitoring was provided befor e, during, and after sedation. The total sedation time was 30 minutes. Documentation face to face time, the performing proceduralist, spent monitoring the patient: [address] scanning was performed to localize the percutaneous site for the biopsy approach. After sterile skin prep and local lidocaine for skin and deep tissue anesthesia, a coaxial biopsy nee dle was used to obtain multiple cores of tissue. Coaxial 19 gauge needle was used. 4 passes, with 4 cores submitted. Biopsy tract embolized with a Biosentry closure device. The biopsy tissue was subm itted to the lab in formalin. There were no immediate complications. Pathology is pending at the time of dictation. IMPRESSION: CT GUIDED BIOPSY OF THE LEFT LOWER LOBE LUNG NODULE PERFORMED WITHOUT IMMEDIATE COMPLICA TION. PATHOLOGY PENDING. IV CONSCIOUS SEDATION. COMMENT: Quality ID 145: Final reports for procedures using fluoroscopy that document radiation exp osure indices, or exposure time and number of fluorographic images (if radiation exposure indices are not available) Patient medication list reviewed: Yes- Quality ID# [id number]:Eligible professional attests to documenting i n the medical record they obtained, updated, or reviewed the patient's current medications.. TECHNICAL DOCUMENTATION: JOB ID: [id number] Quality ID# [id number]: Final reports with documentation of one or more dose reduction techniques (e.g., Aut omated exposure control, adjustment of the mA and/or kV according to patient size, use of iterative r econstruction technique) 2010 [employer]- All Rights Reserved Reading location - IP/workstation name: [email or web address]
--- NOTE | 2018-01-06 12:39 | RADIOLOGY REPORT (SQ) ---
EXAM DESCRIPTION: CT BIOPSY LUNG/MEDIASTINUM; CT NEEDLE PLACEMENT COMPLETED DATE/TIME: 01/06/2018 12:18 pm REASON FOR STUDY: ABNORMAL FINDING OF LUNG FIELD R91.8 OTHER NONSPECIFIC ABNORMAL FINDING OF LUNG F IELD COMPARISON: PET-CT 12/13/2017 TECHNIQUE: CT guided biopsy of the left lower lobe lung parenchymal nodule performed with conscious sedation. CT Fluoroscopy Time: 4.[address] scanners at this facility use dose modulation, iterative reconstruction, and/or weight based d osing when appropriate to reduce radiation dose to as low as reasonably achievable (ALARA). [facility]: Dose Right [facility]: CareDose [facility]: Dose Right [facility]: Teradose 4D [facility]: [email or web address] RADIATION DOSE: mGy. FINDINGS: After obtaining informed consent and explaining the risks and benefits of conscious sedati on,the patient agreed to the procedure. Prior to the procedure, a time out was performed to verify th e patient's identity and planned procedure. IV sedation was administered and physician direction by the registered nurse using 1 milligrams of Ve rsed and 25 micrograms of fentanyl, for conscious sedation. Physiologic monitoring was provided befor e, during, and after sedation. The total sedation time was 30 minutes. Documentation face to face time, the performing proceduralist, spent monitoring the patient: [address] scanning was performed to localize the percutaneous site for the biopsy approach. After sterile skin prep and local lidocaine for skin and deep tissue anesthesia, a coaxial biopsy nee dle was used to obtain multiple cores of tissue. Coaxial 19 gauge needle was used. 4 passes, with 4 cores submitted. Biopsy tract embolized with a Biosentry closure device. The biopsy tissue was subm itted to the lab in formalin. There were no immediate complications. Pathology is pending at the time of dictation. IMPRESSION: CT GUIDED BIOPSY OF THE LEFT LOWER LOBE LUNG NODULE PERFORMED WITHOUT IMMEDIATE COMPLICA TION. PATHOLOGY PENDING. IV CONSCIOUS SEDATION. COMMENT: Quality ID 145: Final reports for procedures using fluoroscopy that document radiation exp osure indices, or exposure time and number of fluorographic images (if radiation exposure indices are not available) Patient medication list reviewed: Yes- Quality ID# [id number]:Eligible professional attests to documenting i n the medical record they obtained, updated, or reviewed the patient's current medications.. TECHNICAL DOCUMENTATION: JOB ID: [id number] Quality ID# 436: Final reports with documentation of one or more dose reduction techniques (e.g., Aut omated exposure control, adjustment of the mA and/or kV according to patient size, use of iterative r econstruction technique) 2010 [employer]- All Rights Reserved Reading location - IP/workstation name: [email or web address]
--- NOTE | 2018-01-06 14:38 | RADIOLOGY REPORT (SQ) ---
EXAM DESCRIPTION: CHEST SINGLE VIEW COMPLETED DATE/TIME: 01/06/2018 2:28 pm REASON FOR STUDY: ABNORMAL FINDING OF LUNG FIELD-- POST LEFT LUNG BIOPSY (2 HR FILM) COMPARISON: Earlier the same day. EXAM PARAMETERS: NUMBER OF VIEWS: One view. TECHNIQUE: Single frontal radiographic view of the chest acquired. RADIATION DOSE: NA LIMITATIONS: None. FINDINGS: LUNGS AND PLEURA: No pneumothorax 2 hours following left lung biopsy. MEDIASTINUM AND HILAR STRUCTURES: No masses. Contour normal. HEART AND VASCULAR STRUCTURES: Heart normal in size. Normal vasculature. BONES: No acute findings. HARDWARE: None in the chest. OTHER: No other significant finding. IMPRESSION: No evidence of pneumothorax 2 hours following left lung biopsy. There is left apical pl eural thickening. TECHNICAL DOCUMENTATION: JOB ID: [id number] [employer]- All Rights Reserved Reading location - IP/workstation name: [email or web address]
[2018-01-06 15:02] VITALS: BP 118/52
== END 2018-01-06 15:00 | disposition home or self-care (01) ==
LOC: RAD 08:45
PROVIDERS: ATTEND Internal Medicine Pulmonary Disease
DX: J43.9 Emphysema, unspecified (principal); J84.10 Pulmonary fibrosis, unspecified; J98.4 Other disorders of lung; R91.8 Other nonspecific abnormal finding of lung field; R63.4 Abnormal weight loss; R53.0 Neoplastic (malignant) related fatigue; F17.210 Nicotine dependence, cigarettes, uncomplicated; E78.5 Hyperlipidemia, unspecified; F03.90 Unspecified dementia, unspecified severity, without behavioral disturbance, psychotic disturbance, mood disturbance, and anxiety; E04.2 Nontoxic multinodular goiter; G47.30 Sleep apnea, unspecified; R58 Hemorrhage, not elsewhere classified; Z85.828 Personal history of other malignant neoplasm of skin; Z79.82 Long term (current) use of aspirin; Z79.51 Long term (current) use of inhaled steroids; Z88.0 Allergy status to penicillin; Z88.1 Allergy status to other antibiotic agents; Z68.1 Body mass index [BMI] 19.9 or less, adult
CPT/HCPCS: 36415; 84520; 82565; 85027; 85610; 85730; 88305 ×2; 88312 ×2; 88313 ×2; 71045; 77012; 32405; J2250; J3010; J3490

== ENCOUNTER → 2018-01-18 | Outpatient (CLI) | payer OTHER ==
--- NOTE | 2018-01-18 09:49 | RADIOLOGY REPORT (SQ) ---
EXAM DESCRIPTION: MRI HEAD COMBO COMPLETED DATE/TIME: 01/18/2018 9:26 am REASON FOR STUDY: UNSPEC HEAD INJURY (S09.90XA), DIZZINESS AND GIDDINESS (R42), SECONDARY MAL S09.90 XA UNSPECIFIED INJURY OF HEAD, INITIAL ENCOUNTER R42 DIZZINESS AND GIDDINESS C79.31 SECONDARY SWETHA GNANT NEOPLASM OF BRAIN COMPARISON: PET-CT 12/13/2017 CT brain 11/04/2017 TECHNIQUE: Multiplanar imaging includes noncontrasted T1, T2, FLAIR, diffusion with ADC map and post gadolinium contrast T1 sequences. Images stored on PACS. CONTRAST TYPE AND DOSE: 10 mL of IV mL Dotarem. RENAL FUNCTION: GFR > 60. LIMITATIONS: None. FINDINGS: ANATOMY: No developmental anomalies. Normal vascular flow voids. Pituitary fossa normal. CSF SPACES: Normal in size and contour. No hemorrhage. CEREBRUM: Sulci and gyri normal in size and contour. Age-appropriate moderate biparietal chronic whi te matter signal on FLAIR imaging. No evidence of hemorrhage, mass, or extraaxial fluid collection. No abnormal enhancement post contrast worrisome for brain parenchymal metastatic lesions. POSTERIOR FOSSA: No signal alteration. No hemorrhage. No edema, masses, or mass effect. Internal leonel tory canals, cerebellopontine angles, mastoids normal. No abnormal enhancement post contrast. DIFFUSION IMAGING: Negative for acute or subacute infarction. ORBITS: No masses. Globes post cataract surgery PARANASAL SINUSES: No fluid levels. Mucosa normal. OTHER: No other significant finding. IMPRESSION: Age-appropriate white matter disease. No MR evidence of brain parenchymal metastatic lesions given history of lung cancer EVIDENCE OF ACUTE STROKE: NO. TECHNICAL DOCUMENTATION: JOB ID: [id number]- All Rights Reserved Reading location - IP/workstation name: [email or web address]
== END ==
LOC: RAD 07:49
PROVIDERS: ATTEND Internal Medicine Hematology & Oncology
DX: S09.90XA Unspecified injury of head, initial encounter (principal); R42 Dizziness and giddiness; C79.31 Secondary malignant neoplasm of brain; Z85.118 Personal history of other malignant neoplasm of bronchus and lung; X58.XXXA Exposure to other specified factors, initial encounter
CPT/HCPCS: 70553; A9576

== ENCOUNTER 2018-08-29 14:05 | Observation (INO) | payer OTHER ==
[2018-08-29] MEDS ORDERED: ACETAMINOPHEN 325 MG TABLET PO ONE (14:26)
--- NOTE | 2018-08-29 14:26 | ER Document Report ---
ED Medical Screen (RME) - General Chief Complaint: Blood Pressure Problem Stated Complaint: SYNCOPAL EPISODE/HEADACHE Time Seen by Provider: 08/29/18 14:24 Primary Care Provider: BLAIR ESTEBAN MD [Primary Care Provider] - Follow up as needed Mode of Arrival: Wheelchair Information source: Patient Notes: Patient was sitting in his vehicle and felt hot around 1230 today. Patient then passed out and had shaking movement of his torso that was witnessed by his . Patient was initially confused when he woke up. Patient does not have any history of seizures. Patient complains of only mild headache at this time. Patient without any chest pain, dyspnea, abdominal pain, nausea or vomiting. I have greeted and performed a rapid initial assessment of this patient. A comprehensive ED assessment and evaluation of the patient, analysis of test results and completion of the medical decision making process will be conducted by additional ED providers. TRAVEL OUTSIDE OF THE [place] IN LAST 30 DAYS: No - Related Data Allergies/Adverse Reactions: moxifloxacin [Moxifloxacin] Allergy (Verified 08/29/18 14:06) swell Penicillins Allergy (Verified 08/29/18 14:06) swell tetracycline [Tetracycline] Allergy (Verified 08/29/18 14:06) swell Past Medical History - Social History Chew tobacco use (# tins/day): No Frequency of alcohol use: None Drug Abuse: None - Past Medical History Cardiac Medical History: Reports: Hx Atrial Fibrillation, Hx Coronary Artery Disease, Hx Hypercholesterolemia Denies: Hx Heart Attack, Hx Hypertension Pulmonary Medical History: Reports: Hx Bronchitis - hx of, Hx COPD, Hx Pneumonia - hx Denies: Hx Asthma Neurological Medical History: Denies: Hx Cerebrovascular Accident, Hx Seizures Endocrine Medical History: Reports: Hx Hypothyroidism Renal/ Medical History: Denies: Hx Peritoneal Dialysis GI Medical History: Denies: Hx Hepatitis, Hx Hiatal Hernia, Hx Ulcer Musculoskeltal Medical History: Reports Hx Arthritis Psychiatric Medical History: Reports: Hx Depression Infectious Medical History: Denies: Hx Hepatitis Past Surgical History: Reports: Hx Orthopedic Surgery - Right subtalar fusion x2, Hx Vascular Surgery - Left carotid endarterectomy. Denies: Hx Open Heart Surgery, Hx Pacemaker - Immunizations Hx Diphtheria, Pertussis, Tetanus Vaccination: Yes History of Influenza Vaccine for 02/2017 - 07/2017 Season: Yes Influenza Administration Date for 02/2017 - 07/2017 Season: 02/27/17 Physical Exam - Vital signs Vitals: Temp Pulse Resp BP Pulse Ox 97.7 F 77 16 142/63 H 97 08/29/18 14:09 08/29/18 14:09 08/29/18 14:09 08/29/18 14:09 08/29/18 14:09 - Neurological Neuro grossly intact: Yes Cognition: Normal Orientation: AAOx4 Amber Coma Scale Eye Opening: Spontaneous Amber Coma Scale Verbal: Oriented Amber Coma Scale Motor: Obeys Commands Amber Coma Scale Total: 15 Course - Vital Signs Vital signs: Temp Pulse Resp BP Pulse Ox 97.7 F 77 16 142/63 H 97 08/29/18 14:09 08/29/18 14:09 08/29/18 14:09 08/29/18 14:09 08/29/18 14:09 Doctor's Discharge - Discharge Referrals: BLAIR ESTEBAN MD [Primary Care Provider] - Follow up as needed
--- NOTE | 2018-08-29 14:48 | ER Document Report ---
ED General - General Chief Complaint: Blood Pressure Problem Stated Complaint: SYNCOPAL EPISODE/HEADACHE Time Seen by Provider: 08/29/18 14:24 Mode of Arrival: Wheelchair Notes: 73-year-old male with paroxysmal atrial fibrillation, COPD, history of left lower lobe lobectomy in February 2018, hypothyroidism, and BPH presents emergency department after syncopal episode while sitting in his car after mosque today. He said he felt a little dizzy in mosque and when he sat down and started his vehicle he put it in gear and felt really hot and, per , passed out. She said that when he passed out he twitched a little bit and kind of nodded his head to the side. Patient states that he did feel his heart "flutter or I had a palpitation" prior to. Patient denies diaphoresis, shortness of breath, chest pain, complains of weakness. Of note approximately 4 days ago patient had a stabbing pain under his left shoulder blade that lasted for about 2 days. Patient is a longtime smoker but does say that he typically is a little hypotensive. Patient is peaked appearing. No other complaints TRAVEL OUTSIDE OF THE [place] IN LAST 30 DAYS: No - Related Data Allergies/Adverse Reactions: moxifloxacin [Moxifloxacin] Allergy (Verified 08/29/18 14:06) swell Penicillins Allergy (Verified 08/29/18 14:06) swell tetracycline [Tetracycline] Allergy (Verified 08/29/18 14:06) swell Past Medical History - General Information source: Patient - Social History Smoking Status: Current Every Day Smoker Chew tobacco use (# tins/day): No Frequency of alcohol use: None Drug Abuse: None Family History: Other - Father with atrial fibrillation who eventually required a pacemaker. Patient has suicidal ideation: No Patient has homicidal ideation: No - Past Medical History Cardiac Medical History: Reports: Hx Atrial Fibrillation, Hx Coronary Artery Disease, Hx Hypercholesterolemia Denies: Hx Heart Attack, Hx Hypertension Pulmonary Medical History: Reports: Hx Bronchitis - hx of, Hx COPD, Hx Pneumonia - hx Denies: Hx Asthma Neurological Medical History: Denies: Hx Cerebrovascular Accident, Hx Seizures Endocrine Medical History: Reports: Hx Hypothyroidism Renal/ Medical History: Denies: Hx Peritoneal Dialysis GI Medical History: Denies: Hx Hepatitis, Hx Hiatal Hernia, Hx Ulcer Musculoskeletal Medical History: Reports Hx Arthritis Psychiatric Medical History: Reports: Hx Depression Infectious Medical History: Denies: Hx Hepatitis Past Surgical History: Reports: Hx Orthopedic Surgery - Right subtalar fusion x2, Hx Vascular Surgery - Left carotid endarterectomy. Denies: Hx Open Heart Surgery, Hx Pacemaker - Immunizations Hx Diphtheria, Pertussis, Tetanus Vaccination: Yes Review of Systems - Review of Systems Constitutional: See HPI EENT: No symptoms reported Cardiovascular: See HPI Respiratory: See HPI Gastrointestinal: See HPI Genitourinary: See HPI Male Genitourinary: No symptoms reported Musculoskeletal: No symptoms reported Skin: No symptoms reported Hematologic/Lymphatic: No symptoms reported Neurological/Psychological: No symptoms reported Physical Exam - Vital signs Vitals: Temp Pulse Resp BP Pulse Ox 97.7 F 77 16 142/63 H 97 08/29/18 14:09 08/29/18 14:09 08/29/18 14:09 08/29/18 14:09 08/29/18 14:09 - Notes Notes: PHYSICAL EXAMINATION: Reviewed vital signs and charting by RN GENERAL: Alert, interacts well. No acute distress. HEAD: Normocephalic, atraumatic. EYES: Pupils equal and round. Extraocular movements intact. ENT: Oral mucosa moist, tongue midline. NECK: Full range of motion. Supple. Trachea midline. LUNGS: Clear to auscultation bilaterally, no wheezes, rales, or rhonchi. No respiratory distress. HEART: Regular rate and rhythm. No murmur ABDOMEN: soft, non-tender. Non-distended. Bowel sounds present. no McBurney's point tenderness, no Hope sign. EXTREMITIES: Moves all 4 extremities spontaneously. No edema, No cyanosis. Normal distal neurovascular exam, strength 5/5 in all 4 extremities, pre- existing right foot issue with lack of range of motion BACK: No CVAT NEUROLOGIC: Oriented and appropriate. Normal speech. No focal neuro deficits PSYCH: Normal affect, normal mood. SKIN: Warm, dry, normal turgor. No rashes or lesions noted. Course - Re-evaluation Re-evalutation: 08/29/18 15:57 Overall well-appearing and appropriate. No focal neuro deficits. EKG did not show STEMI or any T wave inversions. Initial troponin negative. Heart score 4. I have placed a call with Dr. Vidal, hospitalist, who is going to come in formally assess the patient 08/29/18 17:26 Dr. Vidal accepted the patient for observation. - Vital Signs Vital signs: Temp Pulse Resp BP Pulse Ox 98.0 F 65 16 126/62 H 100 08/30/18 00:13 08/30/18 00:13 08/30/18 00:13 08/30/18 00:13 08/30/18 00:13 - Laboratory Result Diagrams: 08/29/18 14:42 08/29/18 14:42 Laboratory results interpreted by me: 08/29/18 08/29/18 14:42 14:42 Sodium 136.9 L Glucose 123 H Creatine Kinase 40 L Salicylates < 1.0 L Discharge - Discharge Clinical Impression: Syncope Condition: Stable Disposition: ADMITTED OBSERVATION Admitting Provider: Marcy (Hospitalist) Unit Admitted: Medical Floor
[2018-08-29 15:01] LABS: ABSOLUTE EOSINOPHILS # (AUTO) 0.1 10^3/uL (0.0-0.6); ABSOLUTE LYMPHOCYTES (AUTO) 1.3 10^3/uL (0.5-4.7); ABSOLUTE MONOCYTES (AUTO) 0.6 10^3/uL (0.1-1.4); ABSOLUTE NEUT (AUTO) 5.5 10^3/uL (1.7-8.2); BASOPHILS % (AUTO) 0.2 % (0-2); EOSINOPHILS % (AUTO) 0.9 % (0-6); HEMATOCRIT 40.7 % (37.9-51.0); LYMPHOCYTES % (AUTO) 17.4 % (13-45); MEAN CORPUSCULAR HEMOGLOBIN 31.3 pg (27.0-33.4); MEAN CORPUSCULAR HGB CONC 34.5 g/dL (32.0-36.0); MEAN CORPUSCULAR VOLUME 91 fl (80-97); PLATELET COUNT 217 10^3/uL (150-450); RED BLOOD COUNT 4.49 10^6/uL (4.35-5.55); RED CELL DISTRIBUTION WIDTH 13.4 % (11.5-14.0); SEGMENTED NEUTROPHILS % (AUTO) 73.5 % (42-78); TOTAL CELLS COUNTED % (AUTO) 100 %; WHITE BLOOD COUNT 7.5 10^3/uL (4.0-10.5)
[2018-08-29 15:19] LABS: ALANINE AMINOTRANSFERASE 26 U/L (21-72); ALBUMIN 4.1 g/dL (3.5-5.0); ALKALINE PHOSPHATASE 62 U/L (38-126); ANION GAP 5 (5-19); ASPARTATE AMINO TRANSFERASE 28 U/L (17-59); BILIRUBIN,DIRECT 0.3 mg/dL (0.0-0.4); BILIRUBIN,TOTAL 0.5 mg/dL (0.2-1.3); BLOOD UREA NITROGEN 18 mg/dL (7-20); CALCIUM 9.4 mg/dL (8.4-10.2); CARBON DIOXIDE 30 mmol/L (22-30); CHLORIDE 102 mmol/L (98-107); CREATINE KINASE 40 U/L (55-170); GLUCOSE 123 mg/dL (75-110); POTASSIUM 4.9 mmol/L (3.6-5.0); SODIUM 136.9 mmol/L (137-145); TOTAL PROTEIN 6.9 g/dL (6.3-8.2)
[2018-08-29 15:30] LABS: CREATINE KINASE MB 1.49 ng/mL (<4.55)
[2018-08-29 15:32] LABS: TROPONIN I < 0.012 ng/mL
[2018-08-29 15:37] LABS: APPEARANCE,URINE CLEAR; BILIRUBIN,URINE NEGATIVE (NEGATIVE); COLOR,URINE YELLOW; GLUCOSE, URINE NEGATIVE (NEGATIVE); KETONES,URINE NEGATIVE (NEGATIVE); LEUKOCYTE ESTERASE,URINE NEGATIVE (NEGATIVE); NITRITE,URINE NEGATIVE (NEGATIVE); PROTEIN,URINE NEGATIVE (NEGATIVE); URINE SPECIFIC GRAVITY 1.009; UROBILINOGEN,URINE NEGATIVE mg/dL (<2.0)
--- NOTE | 2018-08-29 15:48 | RADIOLOGY REPORT (SQ) ---
EXAM DESCRIPTION: CHEST 2 VIEWS COMPLETED DATE/TIME: 08/29/2018 3:37 pm REASON FOR STUDY: syncope COMPARISON: 06/01/2015 EXAM PARAMETERS: NUMBER OF VIEWS: two views TECHNIQUE: Digital Frontal and Lateral radiographic views of the chest acquired. RADIATION DOSE: NA LIMITATIONS: none FINDINGS: LUNGS AND PLEURA: Severe bullous emphysema. No acute opacities. MEDIASTINUM AND HILAR STRUCTURES: No masses or contour abnormalities. HEART AND VASCULAR STRUCTURES: Heart normal size. No evidence for failure. BONES: No acute findings. HARDWARE: None in the chest. OTHER: No other significant finding. IMPRESSION: Severe obstructive pulmonary disease. TECHNICAL DOCUMENTATION: JOB ID: [id number] [employer]- All Rights Reserved Reading location - IP/workstation name: [email or web address]
--- NOTE | 2018-08-29 15:50 | RADIOLOGY REPORT (SQ) ---
EXAM DESCRIPTION: CT HEAD WITHOUT COMPLETED DATE/TIME: 08/29/2018 3:42 pm REASON FOR STUDY: KENNY, syncope, ?seizure COMPARISON: 11/04/2017 TECHNIQUE: Axial images acquired through the brain without intravenous contrast. Images reviewed wi th bone, brain and subdural windows. Additional sagittal and coronal reconstructions were generated. Images stored on PACS. All CT scanners at this facility use dose modulation, iterative reconstruction, and/or weight based d osing when appropriate to reduce radiation dose to as low as reasonably achievable (ALARA). [facility]: Dose Right [facility]: CareDose [facility]: Dose Right [facility]: Teradose 4D [facility]: Smart Red Seraphim RADIATION DOSE: CT Rad equipment meets quality standard of care and radiation dose reduction techniq ues were employed. CTDIvol: 53.2 mGy. DLP: 1044 mGy-cm. mGy. LIMITATIONS: None. FINDINGS: VENTRICLES: Prominent. CEREBRUM: No masses. No hemorrhage. No midline shift. Areas of low density in the white matter mos t likely due to chronic micro-vascular ischemic change. No evidence for acute infarction. CEREBELLUM: No masses. No hemorrhage. No alteration of density. No evidence for acute infarction. EXTRAAXIAL SPACES: Mild age-related involutional change. No fluid collections. No masses. ORBITS AND GLOBE: No intra- or extraconal masses. Normal contour of globe without masses. CALVARIUM: No fracture. PARANASAL SINUSES: No fluid or mucosal thickening. SOFT TISSUES: No mass or hematoma. OTHER: No other significant finding. IMPRESSION: MILD CHRONIC CHANGES OF ATROPHY AND MICROVASCULAR ISCHEMIA. NO ACUTE PROCESS. EVIDENCE OF ACUTE STROKE: NO. TECHNICAL DOCUMENTATION: JOB ID: [id number] Quality ID # [id number]: Final reports with documentation of one or more dose reduction techniques (e.g., Au tomated exposure control, adjustment of the mA and/or kV according to patient size, use of iterative reconstruction technique) 2010 [employer]- All Rights Reserved Reading location - IP/workstation name: [email or web address]
[2018-08-29] MEDS ORDERED: ASPIRIN 81 MG TABLET, ENT COATED PO ONE (18:00)
--- NOTE | 2018-08-29 19:11 | PDOC H&P ---
History of Present Illness Admission Date/PCP: [facility] Patient complains of: Disorientation, passing out History of Present Illness: MICHAELA MONTOYA is a 73 year old male with history of COPD and what appears to be paroxysmal A. fib. He states he had a documented A. fib episode while he was in the hospital for a partial lung resection for a lung mass that turned out benign. He also had an episode of atrial fibrillation a few months before that. He is not on aspirin or anticoagulation. States he was taken off aspirin because the bruises easily. Patient now presented to the ED with what appears to be syncope episode. He states he went to [employer] today and after service he went into the car with his to go home. However as he was putting on his seatbelt, he blanked out momentarily and slumped over. There was a brief jerking motion, but no tongue biting or frothing in the mouth. No loss of urine or bowel incontinence. The episode lasted only a few seconds and he was not postictal when he regained consciousness. The drove him home and when they checked his blood pressure it was 118/111. Patient's states he normally has low blood pressures. He denies chest pain or shortness of breath. He may have had a palpitation episode . He also felt flushed. He was doing better by the time he got to the ED. Evaluation included a head CT that showed no acute changes. EKG without ischemia or A. fib. Patient referred for admission for further evaluation and management. Past Medical History Cardiac Medical History: Reports: Atrial Fibrillation, Coronary Artery Disease, Hyperlipidema Denies: Myocardial Infarction, Hypertension Pulmonary Medical History: Reports: Bronchitis - hx of, Chronic Obstructive Pulmonary Disease (COPD), Pneumonia - hx Denies: Asthma Neurological Medical History: Denies: Seizures Endocrine Medical History: Reports: Hypothyroidism GI Medical History: Denies: Hepatitis, Hiatal Hernia Musculoskeltal Medical History: Reports: Arthritis Psychiatric Medical History: Reports: Depression Hematology: Denies: Anemia, Sickle Cell Disease Past Surgical History Past Surgical History: Reports: Orthopedic Surgery - Right subtalar fusion x2, Vascular Surgery - Left carotid endarterectomy Denies: Pacemaker Social History Smoking Status: Current Every Day Smoker Frequency of Alcohol Use: None Hx Recreational Drug Use: No Drugs: None Hx Prescription Drug Abuse: No Family History Family History: Other - Father with atrial fibrillation who eventually required a pacemaker. Parental Family History Reviewed: Yes Children Family History Reviewed: Yes Sibling(s) Family History Reviewed.: Yes Medication/Allergy Home Medications: Bupropion HCl [Wellbutrin Xl 300mg 24hr Tablet] 300 mg PO WSUPPER 11/04/17 Gabapentin [Neurontin 300 mg Capsule] 300 mg PO QID 11/04/17 Levothyroxine Sodium [Synthroid] 0.075 mg PO Q6AM 11/04/17 Morphine Sulfate [Morphine Ir 30 mg Tablet] 30 mg PO QAM PRN 11/04/17 Pravastatin Sodium [Pravachol] 80 mg PO QAM 11/04/17 Prednisone [Deltasone 5 mg Tablet] 5 mg PO QAM 11/04/17 Ascorbic Acid [Vitamin C 500 mg Tablet] 1 cap PO DAILY 01/06/18 Cholecalciferol (Vitamin D3) [Vitamin D3] 1 cap PO DAILY 01/06/18 Morphine Sulfate [Morphine Sulfate ER] 30 mg PO BID@1300,2200 01/06/18 Multivitamin [Multivitamins] 1 each PO DAILY 01/06/18 Vitamin B Complex 1 each PO DAILY 01/06/18 Vitamin E 1 cap PO DAILY 01/06/18 Allergies/Adverse Reactions: moxifloxacin [Moxifloxacin] Allergy (Verified 08/29/18 14:06) swell Penicillins Allergy (Verified 08/29/18 14:06) swell tetracycline [Tetracycline] Allergy (Verified 08/29/18 14:06) swell Review of Systems Review of Systems: CONSTITUTIONAL : Fever, chills -- No; unexpalined fatigue -- No EENT: Denies eye, ear, throat, or mouth pain or symptoms. Denies nasal or sinus congestion or discharge. Denies throat, tongue, or mouth swelling or difficulty swallowing. CARDIOVASCULAR: Denies chest pain. No racing heart RESPIRATORY: Denies cough, no shortness of breath, difficulty breathing. GASTROINTESTINAL: Denies abdominal pain or distention. Denies nausea, vomiting, or diarrhea. No rectal bleeding. GENITOURINARY: Urinary symptoms -- no. MUSCULOSKELETAL: No acute weakness SKIN: Denies rash, lesions or sores. HEMATOLOGIC : Denies easy bruising or bleeding. LYMPHATIC: Denies swollen, enlarged glands. NEUROLOGICAL: New weakness, headaches, slured speach - No PSYCHIATRIC: Changes anxiety or stress, depression, suicidal ideation, or homicidal ideation -- No ALL OTHER SYSTEMS REVIEWED AND NEGATIVE. Physical Exam Vital Signs: Temp Pulse Resp BP Pulse Ox 97.7 F 77 14 150/73 H 100 08/29/18 14:09 08/29/18 14:09 08/29/18 15:00 08/29/18 15:00 08/29/18 14:44 Intake & Output 08/28/18 08/29/18 08/30/18 06:59 06:59 06:59 Weight 73 kg GENERAL: Well-developed, well-developed male, no acute distress HEENT: Normocephalic/atraumatic NECK supple, no JVD CARDIOVASCULAR: RRR, normal S1-S2, no appreciable murmur LUNGS: CTA bilaterally ABDOMEN: Soft, NT, NL bowel sounds EXTREMITIES: No edema, clubbing, cyanosis NEUROLOGICAL: Alert, oriented x 3, CN II to XII grossly intact, strength 5/5 throughout, 2+ reflexes. Results Laboratory Results: 08/29/18 14:42 08/29/18 14:42 08/29/18 08/29/18 08/29/18 14:42 14:42 14:42 WBC 7.5 RBC 4.49 Hgb 14.0 Hct 40.7 MCV 91 MCH 31.3 MCHC 34.5 RDW 13.4 Plt Count 217 Seg Neutrophils % 73.5 Lymphocytes % 17.4 Monocytes % 8.0 Eosinophils % 0.9 Basophils % 0.2 Absolute Neutrophils 5.5 Absolute Lymphocytes 1.3 Absolute Monocytes 0.6 Absolute Eosinophils 0.1 Absolute Basophils 0.0 Sodium 136.9 L Potassium 4.9 Chloride 102 Carbon Dioxide 30 Anion Gap 5 BUN 18 Creatinine 0.95 Est GFR ( Amer) > 60 Est GFR (Non-Af Amer) > 60 Glucose 123 H Calcium 9.4 Magnesium 2.3 Total Bilirubin 0.5 AST 28 ALT 26 Alkaline Phosphatase 62 Total Protein 6.9 Albumin 4.1 TSH 1.14 Urine Color Urine Appearance Urine pH Ur Specific Cowen Urine Protein Urine Glucose (UA) Urine Ketones Urine Blood Urine Nitrite Ur Leukocyte Esterase Urine WBC (Auto) Urine RBC (Auto) 08/29/18 15:02 WBC RBC Hgb Hct MCV MCH MCHC RDW Plt Count Seg Neutrophils % Lymphocytes % Monocytes % Eosinophils % Basophils % Absolute Neutrophils Absolute Lymphocytes Absolute Monocytes Absolute Eosinophils Absolute Basophils Sodium Potassium Chloride Carbon Dioxide Anion Gap BUN Creatinine Est GFR ( Amer) Est GFR (Non-Af Amer) Glucose Calcium Magnesium Total Bilirubin AST ALT Alkaline Phosphatase Total Protein Albumin TSH Urine Color YELLOW Urine Appearance CLEAR Urine pH 6.0 Ur Specific Cowen 1.009 Urine Protein NEGATIVE Urine Glucose (UA) NEGATIVE Urine Ketones NEGATIVE Urine Blood NEGATIVE Urine Nitrite NEGATIVE Ur Leukocyte Esterase NEGATIVE Urine WBC (Auto) 0 Urine RBC (Auto) 1 08/29/18 08/29/18 14:42 14:42 Creatine Kinase 40 L CK-MB (CK-2) 1.49 Troponin I < 0.012 Impressions: Head CT 08/29/18 14:24 IMPRESSION: MILD CHRONIC CHANGES OF ATROPHY AND MICROVASCULAR ISCHEMIA. NO ACUTE PROCESS. EVIDENCE OF ACUTE STROKE: NO. Chest X-Ray 08/29/18 14:25 IMPRESSION: Severe obstructive pulmonary disease. Assessment and Plan - Diagnosis (1) Syncope and collapse Is this a current diagnosis for this admission?: Yes Plan: I am unsure of etiology at this time. Patient had elevated blood pressure 118/111 when checked. There is also a possibility of an episode of A. fib. Patient could also have had an episode of hypotension, as he reports his blood pressures usually run low. Will admit to telemetry for observation. We will monitor on telemetry to rule out rule out a fib or other arrhythmia. There is also a concern for possible TIA. We will check MRI of the head to rule out CVA. Check echocardiogram, carotid Dopplers. Will treat with aspirin 81 mg daily for now. Patient and are agreeable with this treatment. (2) Paroxysmal A-fib Is this a current diagnosis for this admission?: Yes Plan: Not on anticoagulation or rate control medication. Will monitor on telemetry. Will treat with aspirin 81 mg daily for now in case of TIA/CVA. (3) Accelerated hypertension Is this a current diagnosis for this admission?: Yes Plan: BP was elevated at 118/111 when checked it following his episode. Will monitor blood pressures and treat as may be indicated. (4) COPD (chronic obstructive pulmonary disease) with chronic bronchitis Is this a current diagnosis for this admission?: Yes Plan: Stable. Continue home meds once reconciled.
--- NOTE | 2018-08-29 20:53 | EKG REPORT ---
SEVERITY:- BORDERLINE ECG - SINUS RHYTHM CONSIDER ANTERIOR INFARCT : Confirmed by: Joanne Cruz MD 29-Aug-2018 20:53:29
[2018-08-30 07:34] LABS: HEMATOCRIT 41.3 % (37.9-51.0); HEMOGLOBIN 14.3 g/dL (13.5-17.0); MEAN CORPUSCULAR HEMOGLOBIN 31.4 pg (27.0-33.4); MEAN CORPUSCULAR HGB CONC 34.7 g/dL (32.0-36.0); MEAN CORPUSCULAR VOLUME 90 fl (80-97); PLATELET COUNT 206 10^3/uL (150-450); RED BLOOD COUNT 4.57 10^6/uL (4.35-5.55); RED CELL DISTRIBUTION WIDTH 13.6 % (11.5-14.0); WHITE BLOOD COUNT 6.7 10^3/uL (4.0-10.5)
[2018-08-30 07:54] LABS: BLOOD UREA NITROGEN 16 mg/dL (7-20); CALCIUM 9.5 mg/dL (8.4-10.2); GLUCOSE 83 mg/dL (75-110); POTASSIUM 4.1 mmol/L (3.6-5.0)
[2018-08-30 08:01] LABS: ANION GAP 5 (5-19); CARBON DIOXIDE 30 mmol/L (22-30); CHLORIDE 105 mmol/L (98-107); SODIUM 140.1 mmol/L (137-145)
[2018-08-30] MEDS ORDERED: ENOXAPARIN SODIUM INJ 40 MG/0.4 ML DISP.SYRIN SUBCUT SCH (10:00)
[2018-08-30] MEDS ORDERED: ASPIRIN 81 MG TABLET, ENT COATED PO SCH (10:00)
--- NOTE | 2018-08-30 10:16 | RADIOLOGY REPORT (SQ) ---
EXAM DESCRIPTION: MRI HEAD WITHOUT COMPLETED DATE/TIME: 08/30/2018 9:54 am REASON FOR STUDY: Syncope, possible TIA COMPARISON: CT brain 08/29/2018 MRI brain 01/18/2018 without and with contrast CT-guided lung biopsy 01/06/2018 TECHNIQUE: Multiplanar imaging includes non-contrasted T1, T2, FLAIR, and diffusion with ADC map seq uences. Images stored on PACS. LIMITATIONS: No IV contrast was ordered, patient has history of lung cancer FINDINGS: ANATOMY: No developmental anomalies. Normal vascular flow voids. Pituitary fossa normal. CSF SPACES: Normal in size and contour. No hemorrhage. CEREBRUM: No MR evidence of acute ischemic change, acute intracranial hemorrhage, mass effect, or mid line shift. FLAIR/ T2 weighted images demonstrate spotty mild to moderate bifrontal and biparietal chronic small vessel white matter disease, similar compared to 01/18/2018. POSTERIOR FOSSA: No signal alteration. No hemorrhage. No edema, masses or mass effect. Internal leonel tory canals, cerebello-pontine angles, mastoids normal. DIFFUSION IMAGING: Negative for acute or sub-acute infarction. ORBITS: No masses. Globes normal. PARANASAL SINUSES: No fluid levels. Mucosa normal. OTHER: No other significant finding. IMPRESSION: No acute findings. Stable [id number] chronic small vessel ischemic change. EVIDENCE OF ACUTE STROKE: NO. TECHNICAL DOCUMENTATION: JOB ID: [id number] [employer]- All Rights Reserved Reading location - IP/workstation name: [email or web address]
--- NOTE | 2018-08-30 14:50 | RADIOLOGY REPORT (SQ) ---
EXAM DESCRIPTION: CAROTID DOPPLER COMPLETED DATE/TIME: 08/30/2018 2:12 pm REASON FOR STUDY: syncope COMPARISON: MRI brain 08/30/2018, 01/18/2018 CT brain 08/29/2018 TECHNIQUE: Grayscale ultrasound, Doppler velocity and spectra, and color Doppler images acquired of the extra-cranial carotid and vertebral arteries. Images stored on PACS. LIMITATIONS: None. FINDINGS: RIGHT CAROTID CCA Velocities: Within normal limits. Right common carotid artery peak systolic velocity 1 m/sec. D iffuse right common carotid artery intimal thickening. ICA Velocities Peak systolic 1.0 m/s. End diastolic 0.29 m/s. Proximal ICA/CCA peak systolic ratio 1.2. Heavily calcified right carotid bifurcation with shadowing plaque. Immediately distal to the shadowi ng plaque, right ICA velocities suggest against any flow significant stenosis LEFT CAROTID CCA Velocities: Within normal limits. Left common carotid artery peak systolic velocity 0.96 m/sec. Left foci carotid artery intimal thickening ICA Velocities Peak systolic 0.77 m/s. End diastolic 0.14 m/s. Proximal ICA/CCA peak systolic ratio 1.1. Minimal non calcific plaque at the left carotid bifurcation without flow significant stenosis. VERTEBRAL ARTERIES: On the right side, there is retrograde vertebral artery flow. This represents a change from prior Doppler exam 11/05/2017. Prior MRI demonstrates that the left vertebral artery is d ominant, and the right vertebral artery appears to primarily flow into the right PICA. SUBCLAVIAN ARTERIES: Not evaluated. Symmetric systolic blood pressures both about 130 mm Hg OTHER: No other significant finding. IMPRESSION: No flow significant stenosis of the carotid bifurcations. Since the prior carotid Doppler exam 11/05/2017 patient has developed retrograde flow in the right ifrah tebral artery. COMMENT: Quality ID #[id number]: Velocity criteria are extrapolated from the diameter data as defined by t he Society of Radiologists in Ultrasound Consensus Conference. Radiology 2003: 229; 340-346. TECHNICAL DOCUMENTATION: JOB ID: [id number] [employer]- All Rights Reserved Reading location - IP/workstation name: [email or web address]
--- NOTE | 2018-08-30 16:15 | XCELERA REPORT ---
[address] [address] Transthoracic Echocardiogram Report Name: MICHAELA MONTOYA Age: 73 yrs Gender: Male : 1945 Patient Status: Inpatient Patient Location: [facility]^A Study Date: 08/30/2018 10:38 AM Height: 76 in Weight: 160 lb BSA: 2.0 m2 Reason For Study: syncope Ordering Physician: JESSICA OROSCO Performed By: Rashmi Tracy Interpretation Summary Poor study, Poor apical views, with poor endocardial definition, segmental wall motion abnormalities as in pictorals. LVEF is approx 65 %. IVS is hypokinetic at least. AV configuration is not well seen, but no doppler evidence of aortic stenosis, unable to exclude vegetations. No other cardiogenic emboli obvious and no LA enlargement by EMMA to suggest LA clot. No ASD. no pulm hypertension, RVSP is 25mm+3 = 28 mm. MMode/2D Measurements & Calculations RVDd: 3.3 cm LVIDd: 4.5 cm FS: 39.0 % Ao root diam: 2.7 cm IVSd: 0.89 cm LVIDs: 2.7 cm EDV(Teich): Ao root area: LVPWd: 0.88 cm 90.6 ml ESV(Teich): 5.9 cm2 27.5 ml LA dimension: 2.9 cm EF(Teich): 69.6 % LVLd ap4: 7.3 cm SV(MOD-sp4): EDV(MOD-sp4): 37.0 ml 56.0 ml LVLs ap4: 6.2 cm ESV(MOD-sp4): 19.0 ml EF(MOD-sp4): 66.1 % Doppler Measurements & Calculations MV E max brandon: MV P1/2t max brandon: Ao V2 max: LV V1 max P.5 cm/sec 75.5 cm/sec 104.5 cm/sec 2.8 mmHg MV A max brandon: MV P1/2t: 101.3 msec Ao max P.4 mmHg LV V1 max: 84.9 cm/sec 83.4 cm/sec MV E/A: 0.90 MVA(P1/2t): 2.2 cm2 MV dec slope: 218.4 cm/sec2 MV dec time: 0.33 sec PA V2 max: TR max brandon: MV P1/2t-pr_phl: 91.8 cm/sec 247.6 cm/sec 101.3 msec PA max PG: TR max P.5 mmHg 3.4 mmHg Left Ventricle The left ventricle is grossly normal size. There is mild asymmetric left ventricular hypertrophy. post wall 13 mm, IVS 9 mm. thick. The left ventricular ejection fraction is normal. LV EF is 65%. Doppler measurements suggest impaired left ventricular relaxation, which is associated with grade I/IV or mild diastolic dysfunction. There are regional wall motion abnormalities as specified. There is no thrombus. Right Ventricle The right ventricle is grossly normal size. Atria The right atrium is normal. The left atrial size is normal. Mitral Valve There is mild mitral leaflet calcification. There is no evidence of mitral valve prolapse. There is no mitral valve stenosis. There is a trace amount of mitral regurgitation. Aortic Valve The aortic valve is calcified. The aortic valve opens well. The aortic valve is not well visualized secondary to technical limitations. Cannot exclude aortic valvular vegetation. There is no aortic valve stenosis. No aortic regurgitation is present. Tricuspid Valve There is a mild amount of tricuspid regurgitation. Great Vessels The aortic root is normal size. There is aortic root sclerosis/calcification. Effusions Minimal pericardial effusion. I WMSI = 1.40 % Normal = 60 Segments Size X - Cannot 1 - Normal 2 - 3 - Akinetic4 - 1-2 small Interpret Hypokinetic Dyskinetic 3-5 moderate 5 - 6-14 large Aneurysmal 15-16 diffuse : JESSICA OROSCO > Arun Rose
[2018-08-30 18:16] VITALS: BP 170/78
--- NOTE | 2018-09-12 22:06 | PDOC DISCHARGE SUMMARY ---
General - Admit/Disc Date/PCP Admission Date/Primary Care Provider: 08/29/18 17:45 [facility] Discharge Date: 08/30/18 - Discharge Diagnosis (1) Syncope and collapse Is this a current diagnosis for this admission?: Yes (2) Paroxysmal A-fib Is this a current diagnosis for this admission?: Yes (3) Accelerated hypertension Is this a current diagnosis for this admission?: Yes (4) COPD (chronic obstructive pulmonary disease) with chronic bronchitis Is this a current diagnosis for this admission?: Yes - Additional Information Resuscitation Status: Full Code Discharge Diet: Cardiac Discharge Activity: Activity As Tolerated, Energy Conservation Prescriptions: Apixaban [Eliquis 2.5 mg Tablet] 2.5 mg PO BID 30 Days #60 tablet Home Medications: Gabapentin [Neurontin 300 mg Capsule] 300 mg PO Q6 11/04/17 Morphine Sulfate [Morphine Ir 30 mg Tablet] 30 mg PO Q6HP PRN 11/04/17 Pravastatin Sodium [Pravachol] 80 mg PO WSUPPER 11/04/17 Prednisone [Deltasone 5 mg Tablet] 5 mg PO QAM 11/04/17 Ascorbic Acid [Vitamin C 500 mg Tablet] 1 cap PO DAILY 01/06/18 Cholecalciferol (Vitamin D3) [Vitamin D3] 1,000 unit PO DAILY 01/06/18 Morphine Sulfate [Morphine Sulfate ER] 30 mg PO Q12 01/06/18 Multivitamin [Multivitamins] 1 each PO DAILY 01/06/18 Vitamin B Complex 1 cap PO DAILY 01/06/18 Vitamin E 1,000 unit PO DAILY 01/06/18 Apixaban [Eliquis 2.5 mg Tablet] 2.5 mg PO BID 30 Days #60 tablet 08/30/18 Bupropion HCl [Wellbutrin Xl 300mg 24hr Tablet] 300 mg PO DAILY 08/30/18 Ibuprofen [Motrin 800 mg Tablet] 800 mg PO Q8HP PRN 08/30/18 Levothyroxine Sodium [Synthroid 0.075 mg Tablet] 0.075 mg PO Q6AM 08/30/18 History of Present Illness History of Present Illness: Patient was admitted after presentation as in HPI below: MICHAELA MONTOYA is a 73 year old male with history of COPD and what appears to be paroxysmal A. fib. He states he had a documented A. fib episode while he was in the hospital for a partial lung resection for a lung mass that turned out benign. He also had an episode of atrial fibrillation a few months before that. He is not on aspirin or anticoagulation. States he was taken off aspirin because [he] bruises easily. Patient now presented to the ED with what appears to be [a]syncope episode. He states he went to [employer]... and after service he went into the car with his to go home. However as he was putting on his seatbelt, he blanked out momentarily and slumped over. There was a brief jerking motion, but no tongue biting or frothing in the mouth. No loss of urine or bowel incontinence. The episode lasted only a few seconds and he was not postictal when he regained consciousness. The drove him home and when they checked his blood pressure it was 181/111. Patient's states he normally has low blood pressures. He denies chest pain or shortness of breath. He may have had a palpitation episode. He also felt flushed. He was doing better by the time he got to the ED. Evaluation included a head CT that showed no acute changes. EKG without ischemia or A. fib. Patient referred for admission for further evaluation and management. Hospital Course Hospital Course: Patient was admitted to 24 hrs observation and monitored on telemetry, which should episodes of A-fib. Head MRI reveal mild to moderate chronic small vessel ischemic changes, but no acute stroke. Patient was treated with asa 81 mg daily and he tolerated. Discussed in details with patient and risks and benefits of no anticoaguklation for paroxismal a-fib and they opted fof anticoagulation with Eliqis, but at a lower dose. Patient was started on Eliquis 2.5mg bid. Echo and carotid dopplers were also done and were generally normal, except for concern for retrograde flow on carotid dopplers. Patient is to f/u with his pcp within 1 week. They wish to f/u with pcp before deciding whether to continue with asa 81mg daily as well. BP also intermittently high but patient and state his BPs are unsually low. They will also f/u with pcp before deciding if to be on bp meds. Heart rate was controlled in the 60s. Physical Exam Vital Signs: Temp Pulse Resp BP Pulse Ox 97.4 F 66 18 170/78 H 99 08/30/18 18:14 08/30/18 18:14 08/30/18 18:14 08/30/18 18:14 08/30/18 18:14 Intake & Output 08/29/18 08/30/18 08/31/18 06:59 06:59 06:59 Intake Total 200 1212 Output Total 200 Balance 200 1012 Weight 69 kg GENERAL: Well-developed, well-developed male, no acute distress HEENT: Normocephalic/atraumatic NECK supple, no JVD CARDIOVASCULAR: RRR, normal S1-S2, no appreciable murmur LUNGS: CTA bilaterally ABDOMEN: Soft, NT, NL bowel sounds EXTREMITIES: No edema, clubbing, cyanosis NEUROLOGICAL: Alert, oriented x 3, CN II to XII grossly intact, strength 5/5 throughout/non-focal. Results Laboratory Results: 08/30/18 06:30 08/30/18 06:30 08/30/18 08/30/18 06:30 06:30 WBC 6.7 RBC 4.57 Hgb 14.3 Hct 41.3 MCV 90 MCH 31.4 MCHC 34.7 RDW 13.6 Plt Count 206 Sodium 140.1 Potassium 4.1 Chloride 105 Carbon Dioxide 30 Anion Gap 5 BUN 16 Creatinine 0.88 Est GFR ( Amer) > 60 Est GFR (Non-Af Amer) > 60 Glucose 83 Calcium 9.5 08/29/18 08/29/18 14:42 14:42 Creatine Kinase 40 L CK-MB (CK-2) 1.49 Troponin I < 0.012 Impressions: Head CT 08/29/18 14:24 IMPRESSION: MILD CHRONIC CHANGES OF ATROPHY AND MICROVASCULAR ISCHEMIA. NO ACUTE PROCESS. EVIDENCE OF ACUTE STROKE: NO. Chest X-Ray 08/29/18 14:25 IMPRESSION: Severe obstructive pulmonary disease. Carotid Doppler Study 08/30/18 00:00 IMPRESSION: No flow significant stenosis of the carotid bifurcations. Since the prior carotid Doppler exam 11/05/2017 patient has developed retrograde flow in the right vertebral artery. Head MRI 08/30/18 00:00 IMPRESSION: No acute findings. Stable [id number] chronic small vessel ischemic change. EVIDENCE OF ACUTE STROKE: NO. Qualifiers - * PATIENT BEING DISCHARGED WITH ANY OF THE FOLLOWING DIAGNOSIS: No Acute Heart Failure Is this a Heart Failure Patient?: No
== END 2018-08-30 18:48 | disposition home or self-care (01) ==
LOC: ER 14:05 → EH 17:45 → 3S 20:27
PROVIDERS: ADMIT Internal Medicine; ATTEND Internal Medicine
DX: R55 Syncope and collapse (principal); I48.0 Paroxysmal atrial fibrillation; I10 Essential (primary) hypertension; J44.9 Chronic obstructive pulmonary disease, unspecified; I25.10 Atherosclerotic heart disease of native coronary artery without angina pectoris; E78.5 Hyperlipidemia, unspecified; E03.9 Hypothyroidism, unspecified; F17.200 Nicotine dependence, unspecified, uncomplicated; R51 Headache; R25.8 Other abnormal involuntary movements; Z82.49 Family history of ischemic heart disease and other diseases of the circulatory system; Z79.899 Other long term (current) drug therapy; Z90.2 Acquired absence of lung [part of]; Z98.890 Other specified postprocedural states
CPT/HCPCS: 93005; 99285; 36415 ×2; 82553; 82962; 82550; 83735; 80307; 84443; 85025; 85027; 80048; 80053; 81001; 84484; 93306; 93880; 70551; 71046; 70450; 93010; G0378 ×3; J3490 ×2

== ENCOUNTER → 2019-04-13 | Outpatient (CLI) | payer OTHER ==
--- NOTE | 2019-04-13 13:04 | RADIOLOGY REPORT (SQ) ---
EXAM DESCRIPTION: CT CHEST WITHOUT COMPLETED DATE/TIME: 04/13/2019 9:14 am REASON FOR STUDY: OTHER NONSPECIFIC ABNORMAL FINDING OF LUNG FIELD R91.8 OTHER NONSPECIFIC ABNORMAL FINDING OF LUNG FIELD COMPARISON: 04/08/2016 TECHNIQUE: CT scan performed of the chest without intravenous contrast. Images reviewed with lung, soft tissue and bone windows. Reconstructed coronal and sagittal MPR images reviewed. All images st ored on PACS. All CT scanners at this facility use dose modulation, iterative reconstruction, and/or weight based d osing when appropriate to reduce radiation dose to as low as reasonably achievable (ALARA). [facility]: Dose Right [facility]: CareDose [facility]: Dose Right [facility]: Teradose 4D [facility]: Smart Ante Up RADIATION DOSE: CT Rad equipment meets quality standard of care and radiation dose reduction techniq ues were employed. CTDIvol: 8.2 mGy. DLP: 384 mGy-cm. LIMITATIONS: No technical limitations. FINDINGS: LUNGS AND PLEURA: Since the previous examination, post surgical changes in the left lower lobe. New finding of mild bronchiectatic changes and subsegmental linear scarring or atelectasis/in filtrate. Emphysematous changes in the lungs with scattered areas of scarring. Stable nodular biapical fibrosi s/ scar. Prior granulomatous disease. Stable small subcentimeter pulmonary nodules and minimal pleu ral nodularity in the lungs. No pneumothorax or pleural effusion. HILAR AND MEDIASTINAL STRUCTURES: No significant interval changes. Calcified and noncalcified medias tinal and hilar lymph nodes. Identified masses or abnormal nodes. No obvious aneurysm. HEART AND VASCULAR STRUCTURES: Mild atherosclerotic changes involving the thoracic aorta. Focal are as of coronary artery calcifications. No aneurysm. No pericardial effusion. UPPER ABDOMEN: Small calcified granuloma in the spleen and liver, probably secondary to prior granul omatous disease. Mild atherosclerotic changes involving the visualized atrophic appearance to the pa ncreas, unchanged finding. Limited exam. THYROID AND OTHER SOFT TISSUES: No masses. No adenopathy. BONES: The osseous structures are stable in appearance. HARDWARE: None in the chest. OTHER: Mild bilateral gynecomastia, stable finding. IMPRESSION: 1. Since the prior examination dated 04/08/2016, new finding of post surgical changes a t the left lower lobe. Mild bronchiectatic changes and subsegmental linear scarring or atelectasis/i nfiltrate also noted, represent new findings. 2. Emphysematous changes in the lungs with scattered areas of scarring. Stable small subcentimeter pulmonary nodules and minimal pleural nodularity in the lungs. 3. Prior granulomatous disease. 4. Additional stable findings as above. TECHNICAL DOCUMENTATION: JOB ID: [id number] Quality ID # [id number]: Final reports with documentation of one or more dose reduction techniques (e.g., Au tomated exposure control, adjustment of the mA and/or kV according to patient size, use of iterative reconstruction technique) 2010 [employer]- All Rights Reserved Reading location - IP/workstation name: [email or web address]
== END ==
LOC: RAD 09:01
PROVIDERS: ATTEND Registered Nurse
DX: R91.8 Other nonspecific abnormal finding of lung field (principal)
CPT/HCPCS: 71250

== ENCOUNTER → 2019-06-29 | Outpatient (CLI) | payer OTHER ==
--- NOTE | 2019-06-29 11:04 | RADIOLOGY REPORT (SQ) ---
EXAM DESCRIPTION: CAROTID DOPPLER COMPLETED DATE/TIME: 06/29/2019 10:45 am REASON FOR STUDY: SYNCOPE R55 SYNCOPE AND COLLAPSE COMPARISON: 08/30/2018 TECHNIQUE: Grayscale ultrasound, Doppler velocity and spectra, and color Doppler images acquired of the extra-cranial carotid and vertebral arteries. Images stored on PACS. LIMITATIONS: None. FINDINGS: RIGHT CAROTID CCA Velocities: Within normal limits. ICA Velocities Peak systolic 87 cm/s. End diastolic 23 cm/s. Proximal ICA/CCA peak systolic ratio 0.8. Complex plaque noted in the right bulb. LEFT CAROTID CCA Velocities: Within normal limits. ICA Velocities Peak systolic 101 cm/s. End diastolic 24 cm/s. Proximal ICA/CCA peak systolic ratio 1.0. No significant plaque on the left. VERTEBRAL ARTERIES: Antegrade flow. Normal waveforms. SUBCLAVIAN ARTERIES: No finding. OTHER: No other significant finding. IMPRESSION: NO HEMODYNAMICALLY SIGNIFICANT STENOSIS. COMMENT: Quality ID #[id number]: Velocity criteria are extrapolated from the diameter data as defined by t he Society of Radiologists in Ultrasound Consensus Conference. Radiology 2003: 229; 340-346. TECHNICAL DOCUMENTATION: JOB ID: [id number] 2010 [employer]- All Rights Reserved Reading location - IP/workstation name: [email or web address]
== END ==
LOC: SP 09:05
PROVIDERS: ATTEND Family Medicine
DX: R55 Syncope and collapse (principal)
CPT/HCPCS: 93880

== ENCOUNTER 2019-11-28 17:29 | Observation (INO) | payer OTHER ==
--- NOTE | 2019-11-28 17:55 | ER Document Report ---
ED Medical Screen (RME) - General Chief Complaint: Weakness Stated Complaint: WEAKNESS,CONFUSION Time Seen by Provider: 11/28/19 17:45 Primary Care Provider: PIYUSH DURAN MD [Primary Care Provider] - Follow up as needed Mode of Arrival: Wheelchair Information source: Patient, Relative Notes: HPI; 74-year-old male presents to the emergency room with his complaining of worsening weakness and worsening shortness of breath for the past 3 days. States he had right shoulder surgery on Thursday at [facility] was discharged home the same day did have a physical therapy evaluation while in the hospital and was able to walk with assistance. Per and patient he normally is able to ambulate on his own. States he is now unable to ambulate by himself since he has been discharged home has been having accidents because he is unable to get out of the chair to get to the restroom. History of COPD but states is shortness of breath is worse than his normal COPD. Is on chronic narcotics for chronic pain was discharged home on Dilaudid which they stopped on Thursday currently taking his morphine as prescribed which is a chronic medication for him. He denies any chest pain. PE: Alert and oriented x3. Moderate distress noted. Ill-appearing. Lungs were clear to auscultation without rales, rhonchi, wheezes. Heart: Tachycardic without murmurs, rubs, gallops. I have greeted and performed a rapid initial assessment of this patient. A comprehensive ED assessment and evaluation of the patient, analysis of test results and completion of the medical decision making process will be conducted by additional ED providers. I have specifically instructed the patient or family members with the patient to immediately return to any nursing staff raciel uld anything change in the patient's condition or with their chief complaint. TRAVEL OUTSIDE OF THE [place] IN LAST 30 DAYS: No - Related Data Allergies/Adverse Reactions: moxifloxacin [Moxifloxacin] Allergy (Verified 11/28/19 17:47) swell Penicillins Allergy (Verified 11/28/19 17:47) swell tetracycline [Tetracycline] Allergy (Verified 11/28/19 17:47) swell Past Medical History - Past Medical History Cardiac Medical History: Reports: Hx Atrial Fibrillation, Hx Coronary Artery Disease, Hx Hypercholesterolemia Denies: Hx Heart Attack, Hx Hypertension Pulmonary Medical History: Reports: Hx Bronchitis - hx of, Hx COPD, Hx Pneumonia - hx Denies: Hx Asthma Neurological Medical History: Denies: Hx Cerebrovascular Accident, Hx Seizures Endocrine Medical History: Reports: Hx Hypothyroidism Renal/ Medical History: Denies: Hx Peritoneal Dialysis GI Medical History: Denies: Hx Hepatitis, Hx Hiatal Hernia, Hx Ulcer Musculoskeltal Medical History: Reports Hx Arthritis Psychiatric Medical History: Reports: Hx Depression Infectious Medical History: Denies: Hx Hepatitis Past Surgical History: Reports: Hx Orthopedic Surgery - Right subtalar fusion x2, Hx Vascular Surgery - Left carotid endarterectomy. Denies: Hx Open Heart Surgery, Hx Pacemaker - Immunizations Hx Diphtheria, Pertussis, Tetanus Vaccination: Yes Physical Exam - Vital signs Vitals: Temp Pulse Resp BP Pulse Ox 98.2 F 93 20 128/56 H 99 11/28/19 17:35 11/28/19 17:35 11/28/19 17:35 11/28/19 17:35 11/28/19 17:35 Course - Vital Signs Vital signs: Temp Pulse Resp BP Pulse Ox 98.2 F 93 20 128/56 H 99 11/28/19 17:35 11/28/19 17:35 11/28/19 17:35 11/28/19 17:35 11/28/19 17:35 Doctor's Discharge - Discharge Referrals: PIYUSH DURAN MD [Primary Care Provider] - Follow up as needed
[2019-11-28 18:54] LABS: ABSOLUTE EOSINOPHILS # (AUTO) 0.2 10^3/uL (0.0-0.6); ABSOLUTE LYMPHOCYTES (AUTO) 0.9 10^3/uL (0.5-4.7); ABSOLUTE MONOCYTES (AUTO) 1.2 10^3/uL (0.1-1.4); ABSOLUTE NEUT (AUTO) 9.7 10^3/uL (1.7-8.2); BASOPHILS % (AUTO) 0.3 % (0-2); EOSINOPHILS % (AUTO) 1.5 % (0-6); HEMATOCRIT 38.5 % (37.9-51.0); HEMOGLOBIN 12.7 g/dL (13.5-17.0); LYMPHOCYTES % (AUTO) 7.6 % (13-45); MEAN CORPUSCULAR HEMOGLOBIN 29.7 pg (27.0-33.4); MEAN CORPUSCULAR HGB CONC 32.9 g/dL (32.0-36.0); MEAN CORPUSCULAR VOLUME 90 fl (80-97); MONOCYTES % (AUTO) 9.9 % (3-13); PLATELET COUNT 275 10^3/uL (150-450); RED BLOOD COUNT 4.26 10^6/uL (4.35-5.55); RED CELL DISTRIBUTION WIDTH 13.7 % (11.5-14.0); SEGMENTED NEUTROPHILS % (AUTO) 80.7 % (42-78); TOTAL CELLS COUNTED % (AUTO) 100 %
[2019-11-28 18:58] LABS: ALBUMIN 3.4 g/dL (3.5-5.0); ALKALINE PHOSPHATASE 67 U/L (38-126); ANION GAP 5 (5-19); ASPARTATE AMINO TRANSFERASE 37 U/L (17-59); BILIRUBIN,DIRECT 0.1 mg/dL (0.0-0.4); BILIRUBIN,TOTAL 1.2 mg/dL (0.2-1.3); BLOOD UREA NITROGEN 28 mg/dL (7-20); CALCIUM 8.4 mg/dL (8.4-10.2); CARBON DIOXIDE 30 mmol/L (22-30); CHLORIDE 99 mmol/L (98-107); GLUCOSE 118 mg/dL (75-110); POTASSIUM 4.6 mmol/L (3.6-5.0); TOTAL PROTEIN 6.4 g/dL (6.3-8.2)
[2019-11-28] MEDS ORDERED: NORMAL SALINE 500 ML IV ONE (20:34)
[2019-11-28 20:42] LABS: APPEARANCE,URINE CLEAR; BILIRUBIN,URINE NEGATIVE (NEGATIVE); COLOR,URINE AMBER; GLUCOSE, URINE NEGATIVE (NEGATIVE); KETONES,URINE TRACE mg/dL (NEGATIVE); LEUKOCYTE ESTERASE,URINE NEGATIVE (NEGATIVE); NITRITE,URINE NEGATIVE (NEGATIVE); PROTEIN,URINE 30 mg/dL (NEGATIVE); URINE SPECIFIC GRAVITY 1.025
--- NOTE | 2019-11-28 21:20 | RADIOLOGY REPORT (SQ) ---
EXAM DESCRIPTION: CT HEAD WITHOUT IV CONTRAST CLINICAL HISTORY: 74 years, Male, AMS COMPARISON: CT 08/29/2018 and 04/08/2016. TECHNIQUE: Axial images without contrast. Sagittal coronal reconstruction.. All CT scanners at this facility use dose modulation, iterative reconstruction, and/or weight based dosing when appropriate to reduce radiation dose to as low as reasonably achievable (ALARA). FINDINGS: [id number]-[id number] ventriculomegaly.Transverse diameter of the third ventricle is currently 10 mm. Measurement was 8.5 mm on 04/08/2016. Cortical sulci are less prominent in size ventricles but not effaced. There is moderate periventricular white matter hypodensities greater in the right occipitoparietal region and unchanged. No acute intra-axial or extra-axial abnormalities. There is a mildly coarse calcification anterior to the medulla oblongata unchanged and probably part of vertebral artery calcification. Paranasal sinuses, mastoid air cells and bony calvarium are unremarkable. IMPRESSION: 1. Minimal increase in size of ventricles since 2016. Probably atrophy. Less likely NPH. 2. Chronic white matter changes greater right posteriorly and unchanged. Focal heavily atherosclerotic left vertebral artery. 3. No acute findings.
--- NOTE | 2019-11-28 21:32 | RADIOLOGY REPORT (SQ) ---
EXAM DESCRIPTION: CT CHEST ANGIOGRAPHY WITHOUT THEN WITH IV CONTRAST COMPLETED DATE/TME: 11/28/2019 17:51 CLINICAL HISTORY: 74 years, Male, dyspnea recent shoulder surgery COMPARISON: PET/CT 12/13/2017. TECHNIQUE: Axial images with IV contrast. Contrast dose not available. MIP reconstruction.. All CT scanners at this facility use dose modulation, iterative reconstruction, and/or weight based dosing when appropriate to reduce radiation dose to as low as reasonably achievable (ALARA). FINDINGS: No evidence for pulmonary hypertension or central pulmonary embolus. Very small peripheral pulmonary arteries without suspicious PE. Aorta is unremarkable. Borderline right heart size. No suspicious mediastinal adenopathy. No evidence for pericardial effusion. Lungs are moderately hyperinflated. Motion artifact. Relative lucency in both lower lobes possibly air-trapping or panlobular emphysema. Scarring in the left lung base. Resolution of previous suspicious nodule in left lower lobe. Pleural disease. No suspicious bony lesions. Limited images of the upper abdomen without acute findings. At least mild atherosclerotic disease of the origin of both renal arteries. IMPRESSION: 1. No evidence for pulmonary embolus. No evidence for pulmonary hypertension. Relatively small heart secondary to COPD. Relative mild enlargement of the right heart. 2. Hyperinflation. Greater lucency in the lower lobes possibly representing panlobular emphysema or diffuse air-trapping. 3. Chronic scarring in the left lung base. Resolution of previous suspicious nodule. 4. At least mild narrowing at the origin of both renal arteries.
--- NOTE | 2019-11-28 21:41 | EKG REPORT ---
SEVERITY:- ABNORMAL ECG - SINUS RHYTHM ATRIAL PREMATURE COMPLEX CONSIDER ANTEROSEPTAL INFARCT : Confirmed by: Danika Morales 28-Nov-2019 21:40:39
[2019-11-28] MEDS ORDERED: NORMAL SALINE 1000 ML 1,000 ML IV ONE (22:11)
--- NOTE | 2019-11-28 22:52 | ER Document Report ---
Entered by KAREN OVERTON SCRIBE 11/28/192031 Acting as scribe for:LEVAR FISHER DO ED General - General Chief Complaint: General Weakness Stated Complaint: WEAKNESS,CONFUSION Time Seen by Provider: 11/28/19 17:45 Mode of Arrival: Wheelchair Information source: Patient Notes: This 74 year old male patient presents to the emergency department today for c omplaints of confusion. Patient had a total right shoulder replacement on November 24 at [facility]. at bedside reports the patient has had confusion more than baseline. Patient complains of dark-colored urine and dysuria. states the patient is generally weak, mentioning that he "cant even stand". TRAVEL OUTSIDE OF THE [place] IN LAST 30 DAYS: No - Related Data Allergies/Adverse Reactions: moxifloxacin [Moxifloxacin] Allergy (Verified 11/28/19 17:47) swell Penicillins Allergy (Verified 11/28/19 17:47) swell tetracycline [Tetracycline] Allergy (Verified 11/28/19 17:47) swell Home Medications: see list on chart from [employer] [facility] d/c packet Past Medical History - General Information source: Patient, Relative - Social History Smoking Status: Former Smoker Chew tobacco use (# tins/day): No Frequency of alcohol use: None Drug Abuse: None Lives with: Family Family History: Reviewed & Not Pertinent, Other - Father with atrial fibrillation who eventually required a pacemaker. Patient has homicidal ideation: No - Past Medical History Cardiac Medical History: Reports: Hx Atrial Fibrillation, Hx Coronary Artery Disease, Hx Hypercholesterolemia Pulmonary Medical History: Reports: Hx Bronchitis - hx of, Hx COPD, Hx Pneumonia - hx Endocrine Medical History: Reports: Hx Hypothyroidism Musculoskeletal Medical History: Reports Hx Arthritis Psychiatric Medical History: Reports: Hx Depression Past Surgical History: Reports: Hx Orthopedic Surgery - Right subtalar fusion x 2, Hx Vascular Surgery - Left carotid endarterectomy - Immunizations Hx Diphtheria, Pertussis, Tetanus Vaccination: Yes Review of Systems - Review of Systems Constitutional: No symptoms reported EENT: No symptoms reported Cardiovascular: No symptoms reported Respiratory: See HPI, Short of breath Gastrointestinal: No symptoms reported Genitourinary: No symptoms reported Male Genitourinary: No symptoms reported Musculoskeletal: See HPI, Joint pain - right shoulder Skin: See HPI, Other - redness to right chest wall Hematologic/Lymphatic: No symptoms reported Neurological/Psychological: No symptoms reported -: Yes All other systems reviewed and negative Physical Exam - Vital signs Vitals: Temp Pulse Resp BP Pulse Ox 98.2 F 93 20 128/56 H 99 11/28/19 17:35 11/28/19 17:35 11/28/19 17:35 11/28/19 17:35 11/28/19 17:35 Interpretation: Normal - General General appearance: Appears well, Alert - HEENT Head: Normocephalic, Atraumatic Eyes: Normal Pupils: PERRL - Respiratory Respiratory status: No respiratory distress Chest status: Nontender Breath sounds: Normal Chest palpation: Normal - Cardiovascular Rhythm: Regular Heart sounds: Normal auscultation Murmur: No - Abdominal Inspection: Normal Distension: No distension Bowel sounds: Normal Tenderness: Nontender Organomegaly: No organomegaly - Back Back: Normal, Nontender - Extremities General upper extremity: Tender, Normal temperature General lower extremity: Normal inspection, Nontender, Normal color, Normal ROM, Normal temperature, Normal weight bearing. No: Raven's sign Shoulder: Tender - Right shoulder, consistent with recent surgery. Wound clean dry and intact with no erythema or discharge. Ecchymosis consistent with surgery., Ecchymosis - Consistent with recent surgery Arm: Ecchymosis - Over right shoulder and right arm consistent with recent surgery Elbow: Normal Forearm: Abrasion - Healing, no erythema or discharge Wrist: Normal Hand: Normal Hip: Normal Thigh: Normal Knee: Normal - Neurological Neuro grossly intact: No Cognition: Confused Orientation: Disoriented to time Amber Coma Scale Eye Opening: Spontaneous Amber Coma Scale Verbal: Confused [place] Coma Scale Motor: Obeys Commands [place] Coma Scale Total: 14 Speech: Normal Motor strength normal: LUE, RUE, LLE, RLE Sensory: Normal - Psychological Associated symptoms: Confused - Skin Skin Temperature: Warm Skin Moisture: Dry Skin Color: Normal Course - Re-evaluation Re-evalutation: 11/28/19 21:[address] Nik Ernst. States that patient's surgeon is Dr. Wilfred Ernst, who is partners with Dr. Weiner. 11/28/19 21:[address] Weiner, who will see the patient in consultation as needed, but will not be in town in [place] until Thursday. There do not appear to be any acute surgical issues at this time. 11/28/19 22:11 Call placed to hospitalist Dr. Smith who says he will come down to see patient 11/28/19 22:52 Luis states he will keep patient overnight for observation on a medical floor. Patient is a 74-year-old male who recently had a right total reverse shoulder surgery at [facility]. Per patient's , patient has been confused and is having weakness and difficulty walking. Patient was unable to stand on his own today. He apparently received Dilaudid over the weekend and was hallucinating. He is not taking any Dilaudid since Thursday, but is still taking pain medication. Patient is not able to tell me the month or the day of the week. states that he is still acting confused. No acute findings on CT head or CTA chest. Right shoulder wound appears clean. No evidence for infection. Blood work and urine are consistent with some dehydration. Patient is being gently fluid resuscitated. Given acute encephalopathy which is possibly due to medication side effects, and fall risk at home from weakness that is new, patient will be kept in the hospital. Patient has been evaluated by the hospitalist and will be kept overnight for observation on medical floor. and patient are agreeable to this plan. Stable at the time of admission. Lactic and troponin negative. Patient admitted to Dr. Smith. No evidence for transfer at this time. - Vital Signs Vital signs: Temp Pulse Resp BP Pulse Ox 98.5 F 93 21 H 126/59 H 97 11/28/19 20:25 11/28/19 17:35 11/28/19 21:00 11/28/19 20:25 11/28/19 22:00 - Laboratory Result Diagrams: 11/28/19 18:21 11/28/19 18:21 Laboratory results interpreted by me: 11/28/19 11/28/19 11/28/19 18:21 18:21 20:20 WBC 12.0 H RBC 4.26 L Hgb 12.7 L Lymph % (Auto) 7.6 L Absolute Neuts (auto) 9.7 H Seg Neutrophils % 80.7 H Sodium 134.0 L BUN 28 H Est GFR (MDRD) Non-Af 59 L Glucose 118 H Albumin 3.4 L Urine Protein 30 H Urine Ketones TRACE H Urine Urobilinogen 4.0 H Urine Ascorbic Acid 20 H - Diagnostic Test Radiology reviewed: Reports reviewed - EKG Interpretation by Me EKG shows normal: Sinus rhythm Rate: Normal Rhythm: NSR When compared to previous EKG there are: No significant change - No acute ST changes Discharge - Discharge Clinical Impression: Acute encephalopathy, Weakness Condition: Stable Disposition: ADMITTED OBSERVATION Admitting Provider: Luis (Hospitalist) Unit Admitted: Medical Floor I personally performed the services described in the documentation, reviewed and edited the documentation which was dictated to the scribe in my presence, and it accurately records my words and actions.
--- NOTE | 2019-11-28 23:10 | PDOC H&P ---
History of Present Illness Admission Date/PCP: PIYUSH DURAN MD History of Present Illness: MICHAELA MONTOYA is a 74 year old male with a history of atrial fibrillation, panlobular emphysema, chronic pain on chronic narcotics, and arthritis who 3 days ago had a right shoulder replacement. Because he was on chronic morphine at home, he was given Dilaudid for pain. He took that for about a day but it made him even more confused and so they took him off of the Dilaudid and switched him back to his home morphine. He his only had about 12 ounces of water to drink in the past couple of days. To eat, since his surgery he is only had half a sandwich yesterday and 2 pieces of toast this morning. He comes to the ER because of weakness. His says she is not really concerned about any changes in his mental status at this point because that went away when she stopped the Dilaudid. The main issue is he is required a lot of assistance with transfers and she has had to get her son-in-law to come help her get him to the bathroom because he has been too weak to stand under his own power. His labs are unremarkable. said that his primary care provider said to come to the ER because he wanted him checked for a stroke or a blood clot. His head CT was negative and his CTA of his chest was negative. He has not had any chest pain or shortness of breath. No nausea, vomiting, or diarrhea. No dysuria. No headache or sore throat. No blurred vision. No trouble with balance. No numbness or tingling. Past Medical History Cardiac Medical History: Reports: Atrial Fibrillation, Coronary Artery Disease, Hyperlipidema Denies: Myocardial Infarction, Hypertension Pulmonary Medical History: Reports: Bronchitis - hx of, Chronic Obstructive Pulmonary Disease (COPD), Pneumonia - hx Denies: Asthma Neurological Medical History: Denies: Seizures Endocrine Medical History: Reports: Hypothyroidism GI Medical History: Denies: Hepatitis, Hiatal Hernia Musculoskeltal Medical History: Reports: Arthritis Psychiatric Medical History: Reports: Depression Hematology: Denies: Anemia, Sickle Cell Disease Past Surgical History Past Surgical History: Reports: Orthopedic Surgery - Right subtalar fusion x2, Vascular Surgery - Left carotid endarterectomy Denies: Pacemaker Social History Lives with: Family Smoking Status: Former Smoker Electronic Cigarette use?: No Frequency of Alcohol Use: None Hx Recreational Drug Use: No Drugs: None Hx Prescription Drug Abuse: No Family History Family History: Reviewed & Not Pertinent, Other - Father with atrial fibrillation who eventually required a pacemaker. Parental Family History Reviewed: Yes Children Family History Reviewed: Yes Sibling(s) Family History Reviewed.: Yes Medication/Allergy Home Medications: Gabapentin [Neurontin 300 mg Capsule] 300 mg PO Q6 11/04/17 Morphine Sulfate [Morphine Ir 30 mg Tablet] 30 mg PO Q6HP PRN 11/04/17 Pravastatin Sodium [Pravachol] 80 mg PO WSUPPER 11/04/17 Prednisone [Deltasone 5 mg Tablet] 5 mg PO QAM 11/04/17 Ascorbic Acid [Vitamin C 500 mg Tablet] 1 cap PO DAILY 01/06/18 Cholecalciferol (Vitamin D3) [Vitamin D3] 1,000 unit PO DAILY 01/06/18 Morphine Sulfate [Morphine Sulfate ER] 30 mg PO Q12 01/06/18 Multivitamin [Multivitamins] 1 each PO DAILY 01/06/18 Vitamin B Complex 1 cap PO DAILY 01/06/18 Vitamin E 1,000 unit PO DAILY 01/06/18 Apixaban [Eliquis 2.5 mg Tablet] 2.5 mg PO BID 30 Days #60 tablet 08/30/18 Bupropion HCl [Wellbutrin Xl 300mg 24hr Tablet] 300 mg PO DAILY 08/30/18 Ibuprofen [Motrin 800 mg Tablet] 800 mg PO Q8HP PRN 08/30/18 Levothyroxine Sodium [Synthroid 0.075 mg Tablet] 0.075 mg PO Q6AM 08/30/18 Allergies/Adverse Reactions: moxifloxacin [Moxifloxacin] Allergy (Verified 11/28/19 17:47) swell Penicillins Allergy (Verified 11/28/19 17:47) swell tetracycline [Tetracycline] Allergy (Verified 11/28/19 17:47) aldenll Review of Systems All systems: reviewed and no additional remarkable complaints except as stated - All systems were reviewed and were negative except as noted in the HPI Physical Exam Vital Signs: Temp Pulse Resp BP Pulse Ox 98.5 F 93 21 H 126/59 H 97 11/28/19 20:25 11/28/19 17:35 11/28/19 21:00 11/28/19 20:25 11/28/19 22:00 Intake & Output 11/27/19 11/28/19 11/29/19 06:59 06:59 06:59 Weight 76.204 kg General appearance: PRESENT: no acute distress, cooperative, disheveled, thin Head exam: PRESENT: atraumatic, normocephalic Eye exam: PRESENT: EOMI, PERRLA. ABSENT: conjunctival injection, nystagmus, scleral icterus Ear exam: PRESENT: normal external ear exam Mouth exam: PRESENT: dry mucosa, neck supple Throat exam: ABSENT: post pharyngeal erythema Neck exam: PRESENT: full ROM. ABSENT: carotid bruit, JVD, lymphadenopathy, meningismus, tenderness, thyromegaly Respiratory exam: PRESENT: clear to auscultation jaja, symmetrical, unlabored. ABSENT: accessory muscle use, chest wall tenderness, crackles, prolonged expiratory phas, rhonchi, tachypnea, wheezes Cardiovascular exam: PRESENT: irregular rhythm - Normal rate, +S1, +S2 Pulses: PRESENT: normal carotid pulses Vascular exam: PRESENT: normal capillary refill GI/Abdominal exam: PRESENT: normal bowel sounds, soft. ABSENT: distended, guarding, rebound, tenderness Extremities exam: ABSENT: clubbing, pedal edema Musculoskeletal exam: PRESENT: other - His surgical incision on his right shoulder is well approximated without erythema or exudates. ABSENT: deformity Neurological exam: PRESENT: alert, awake, oriented to person, oriented to place, oriented to situation, CN II-XII grossly intact. ABSENT: motor sensory deficit Psychiatric exam: PRESENT: appropriate affect, normal mood Skin exam: PRESENT: dry, warm, other - Skin tears on the distal right upper extremity Results Laboratory Results: 11/28/19 18:21 11/28/19 18:21 11/28/19 11/28/19 11/28/19 18:21 18:21 18:21 WBC 12.0 H RBC 4.26 L Hgb 12.7 L Hct 38.5 MCV 90 MCH 29.7 MCHC 32.9 RDW 13.7 Plt Count 275 Seg Neutrophils % 80.7 H Sodium 134.0 L Potassium 4.6 Chloride 99 Carbon Dioxide 30 Anion Gap 5 BUN 28 H Creatinine 1.20 Est GFR ( Amer) > 60 Glucose 118 H Lactic Acid 1.1 Calcium 8.4 Total Bilirubin 1.2 AST 37 Alkaline Phosphatase 67 Total Protein 6.4 Albumin 3.4 L Urine Color Urine Appearance Urine pH Ur Specific [place] Urine Protein Urine Glucose (UA) Urine Ketones Urine Blood Urine Nitrite Ur Leukocyte Esterase Urine WBC (Auto) Urine RBC (Auto) 11/28/19 20:20 WBC RBC Hgb Hct MCV MCH MCHC RDW Plt Count Seg Neutrophils % Sodium Potassium Chloride Carbon Dioxide Anion Gap BUN Creatinine Est GFR ( Amer) Glucose Lactic Acid Calcium Total Bilirubin AST Alkaline Phosphatase Total Protein Albumin Urine Color EMILY Urine Appearance CLEAR Urine pH 5.0 Ur Specific [place] 1.025 Urine Protein 30 H Urine Glucose (UA) NEGATIVE Urine Ketones TRACE H Urine Blood NEGATIVE Urine Nitrite NEGATIVE Ur Leukocyte Esterase NEGATIVE Urine WBC (Auto) 3 Urine RBC (Auto) 1 11/28/19 18:21 Troponin I < 0.012 Impressions: Chest/Abdomen CTA 11/28/19 17:51 IMPRESSION: 1. No evidence for pulmonary embolus. No evidence for pulmonary hypertension. Relatively small heart secondary to COPD. Relative mild enlargement of the right heart. 2. Hyperinflation. Greater lucency in the lower lobes possibly representing panlobular emphysema or diffuse air-trapping. 3. Chronic scarring in the left lung base. Resolution of previous suspicious nodule. 4. At least mild narrowing at the origin of both renal arteries. Head CT 11/28/19 20:33 IMPRESSION: 1. Minimal increase in size of ventricles since 2016. Probably atrophy. Less likely NPH. 2. Chronic white matter changes greater right posteriorly and unchanged. Focal heavily atherosclerotic left vertebral artery. 3. No acute findings. Assessment and Plan - Diagnosis (1) Weakness Is this a current diagnosis for this admission?: Yes Plan: There is no evidence of anything more sinister than the fact that this is a 74-year-old man with multiple medical comorbidities who is on chronic narcotics, just had a substantial surgery on his right shoulder, and has not been eating or drinking enough to keep up with his normal metabolic demands, much less what extra he would need to help his surgical wounds heal. We will get a put him on some IV fluids overnight, give him something to eat tonight, encourage him to eat a good breakfast, and then have physical therapy come to see him. (2) COPD (chronic obstructive pulmonary disease) with chronic bronchitis Is this a current diagnosis for this admission?: Yes Plan: Not exacerbated, continue home medications (3) Chronic pain Qualifiers: Chronic pain type: chronic pain syndrome Qualified Code(s): G89.4 - Chronic pain syndrome Is this a current diagnosis for this admission?: Yes Plan: Continue home morphine (4) Chronic, continuous use of opioids Is this a current diagnosis for this admission?: Yes (5) Hypothyroidism Qualifiers: Hypothyroidism type: other Qualified Code(s): E03.8 - Other specified hypothyroidism Is this a current diagnosis for this admission?: Yes Plan: Continue levothyroxine (6) Orthostatic hypotension Is this a current diagnosis for this admission?: Yes Plan: Diagnosed during previous admission, he needs to be careful during position changes - Time Time Spent with patient: 35 or more minutes Anticipated discharge: Home Within: within 24 hours
[2019-11-29] MEDS: NORMAL SALINE 1000 ML 1,000 ML IV PRN ×2 (00:37→05:38)
[2019-11-29] MEDS ORDERED: IPRATROPIUM/ALBUTEROL 0.5-2.5 MG/3 ML AMPUL NEB PRN (09:22)
[2019-11-29] MEDS ORDERED: MORPHINE SULFATE 10 MG/5 ML ORAL SOLUTION UDCUP PO PRN (10:06)
[2019-11-29] MEDS ORDERED: MORPHINE SULFATE SR 15 MG TABLET PO SCH (10:30)
[2019-11-29] MEDS ORDERED: ALBUTEROL SULFATE NEB PRN (12:11)
[2019-11-29] MEDS ORDERED: [UNRECOGNIZED DRUG - OTHER] NEB PRN (12:11)
[2019-11-29] MEDS ORDERED: TESTOSTERONE CYPIONATE 200 MG IM SCH (12:15)
[2019-11-29] MEDS ORDERED: BUPROPION HCL 100 MG TABLET PO SCH (14:00)
[2019-11-29 15:25] VITALS: BP 149/64
[2019-11-29] MEDS ORDERED: ATORVASTATIN CALCIUM 20 MG TABLET PO SCH (17:00)
[2019-11-29] MEDS ORDERED: GABAPENTIN 300 MG CAPSULE PO SCH ×2 (18:00)
--- NOTE | 2019-11-29 18:17 | PDOC DISCHARGE SUMMARY ---
Impression - Admit/DC Date/PCP Admission Date/Primary Care Provider: 11/28/19 23:01 PIYUSH DURAN MD Discharge Date: 11/29/19 - Additional Information Resuscitation Status: Full Code Discharge Diet: Cardiac Discharge Activity: Activity As Tolerated, Balance Activity w/Rest, Slowly Increase Activity Referrals: VETO GIL MD [ASSOCIATE] - 12/08/19 9:50 am (Please follow up at earliest available appointmetn related to increased shoulder swelling.) Home Medications: Gabapentin [Neurontin 300 mg Capsule] 300 mg PO QPM 11/04/17 Pravastatin Sodium [Pravachol] 80 mg PO WSUPPER 11/04/17 Multivitamin [Multivitamins] 1 each PO DAILY 01/06/18 Vitamin B Complex 1 cap PO DAILY 01/06/18 Apixaban [Eliquis 2.5 mg Tablet] 2.5 mg PO BID 30 Days #60 tablet 08/30/18 Bupropion HCl [Wellbutrin Xl 300mg 24hr Tablet] 300 mg PO DAILY 08/30/18 Levothyroxine Sodium [Synthroid 0.075 mg Tablet] 0.075 mg PO DAILY 08/30/18 Albuterol Sulfate [Albuterol Sulfate Hfa] 1 puff IH Q4HP PRN 11/29/19 Albuterol Sulfate [Ventolin 0.083% Neb 2.5 mg/3 mL Ampul] 1 vial NEB TID 11/29/19 Cholecalciferol (Vitamin D3) [Vitamin D3 1000 Unit Tablet] 5,000 unit PO DAILY 11/29/19 Cyanocobalamin (Vitamin B-12) [Vitamin B-12] 50 mcg PO DAILY 11/29/19 Gabapentin [Neurontin] 600 mg PO BID 11/29/19 Glucosamine HCl 1,500 mg PO DAILY 11/29/19 Hydroxyzine Hcl 25 mg PO HSP PRN 11/29/19 Metoprolol Succinate [Toprol Xl 25 mg Tab.sr] 12.5 mg PO DAILY 11/29/19 Morphine Sulfate [Morphabond ER] 15 mg PO Q12 11/29/19 Morphine Sulfate [Morphine Ir 15 mg Tablet] 15 mg PO BIDP PRN 11/29/19 Pantoprazole Sodium [Protonix] 40 mg PO DAILY 11/29/19 Pramipexole Dihydrochloride 0.5 mg PO QHS 11/29/19 Testosterone Cypionate [Testone Cik] 200 mg IM [id number] 11/29/19 Vitamin E 400 unit PO DAILY 11/29/19 History of Present Illiness History of Present Illness: Per H&P by Dr. Smith: MICHAELA MONTOYA is a 74 year old male with a history of atrial fibrillation, panlobular emphysema, chronic pain on chronic narcotics, and arthritis who 3 days ago had a right shoulder replacement. Because he was on chronic morphine at home, he was given Dilaudid for pain. He took that for about a day but it made him even more confused and so they took him off of the Dilaudid and switched him back to his home morphine. He his only had about 12 ounces of water to drink in the past couple of days. To eat, since his surgery he is only had half a sandwich yesterday and 2 pieces of toast this morning. He comes to the ER because of weakness. His says she is not really concerned about any changes in his mental status at this point because that went away when she stopped the Dilaudid. The main issue is he is required a lot of assistance with transfers and she has had to get her son-in-law to come help her get him to the bathroom because he has been too weak to stand under his own power. His labs are unremarkable. said that his primary care provider said to come to the ER because he wanted him checked for a stroke or a blood clot. His head CT was negative and his CTA of his chest was negative. He has not had any chest pain or shortness of breath. No nausea, vomiting, or diarrhea. No dysuria. No headache or sore throat. No blurred vision. No trouble with balance. No numbness or tingling. Hospital Course Hospital Course: The patient was admitted to the medical floor on continuous cardiac telemetry. He is provided gentle IV fluids overnight. Appetite improved, and he tolerated approximately 75% of meals. The patient's previously prescribed morphine regiment was continued; did not continue the postsurgical Dilaudid as he had reported increased fatigue/mental status changes with this medication. His remaining medication regiment was reconciled and continued unchanged. Patient was met by both physical therapy and occupational therapy services. Patient did well and was able to ambulate approximately 60 feet with cane and contact-guard. Both services recommended continued PT/OT therapy following discharge. Met with patient and his spouse this afternoon; will feel comfortable with discharge home today as he has increased alertness and strength. They appreciate assistance with expediting his home health service needs. Discharge planning was consulted for assistance. Patient is discharged home in stable condition, to the care of family members, with home health nursing, PT/OT, aid, and SW. Have also asled SW to arrange for bedside commode. He is advised to follow-up with his primary care provider within 1 week. Follow-up with his orthopedic surgeon as scheduled. Take medications as prescribed. Encouraged p.o. intake. Return to the emergency department as needed for concerning symptoms. Physical Exam Vital Signs: Temp Pulse Resp BP Pulse Ox 97.7 F 92 17 149/64 H 92 11/29/19 15:24 11/29/19 15:24 11/29/19 15:24 11/29/19 15:24 11/29/19 15:24 Intake & Output 11/28/19 11/29/19 11/30/19 06:59 06:59 06:59 Intake Total 2127 480 Output Total 300 100 Balance 1827 380 Weight 82.1 kg General appearance: PRESENT: no acute distress, cooperative, well-developed, well-nourished Head exam: PRESENT: atraumatic, normocephalic Eye exam: PRESENT: conjunctiva pink, EOMI, PERRLA. ABSENT: scleral icterus Mouth exam: PRESENT: moist, tongue midline Respiratory exam: PRESENT: clear to auscultation jaja, symmetrical, unlabored. ABSENT: rales, rhonchi, wheezes Cardiovascular exam: PRESENT: RRR. ABSENT: diastolic murmur, rubs, systolic murmur Pulses: PRESENT: normal dorsalis pedis pul Vascular exam: PRESENT: normal capillary refill GI/Abdominal exam: PRESENT: normal bowel sounds, soft. ABSENT: distended, guarding, mass, organolmegaly, rebound, tenderness Rectal exam: PRESENT: deferred Extremities exam: PRESENT: tenderness - Right shoulder. ABSENT: calf tenderness, clubbing, pedal edema Musculoskeletal exam: PRESENT: other - surgical incision on his right shoulder is well approximated without erythema or exudates. Slight edema and scattered ecchymosis present Neurological exam: PRESENT: alert, awake, oriented to person, oriented to place, oriented to time, oriented to situation, CN II-XII grossly intact. ABSENT: motor sensory deficit Psychiatric exam: PRESENT: appropriate affect, normal mood. ABSENT: homicidal ideation, suicidal ideation Skin exam: PRESENT: dry, intact, warm. ABSENT: cyanosis, rash Results Laboratory Results: WBC 12.0 10^3/uL (4.0-10.5) H 11/28/19 18:21 RBC 4.26 10^6/uL (4.35-5.55) L 11/28/19 18:21 Hgb 12.7 g/dL (13.5-17.0) L 11/28/19 18:21 Hct 38.5 % (37.9-51.0) 11/28/19 18:21 MCV 90 fl (80-97) 11/28/19 18:21 MCH 29.7 pg (27.0-33.4) 11/28/19 18: MCHC 32.9 g/dL (32.0-36.0) 11/28/19 18: RDW 13.7 % (11.5-14.0) 11/28/19 18:21 Plt Count 275 10^3/uL (150-450) 11/28/19 18:21 Lymph % (Auto) 7.6 % (13-45) L 11/28/19 18:21 [place] % (Auto) 9.9 % (3-13) 11/28/19 18:21 Eos % (Auto) 1.5 % (0-6) 11/28/19 18:21 Baso % (Auto) 0.3 % (0-2) 11/28/19 18:21 Absolute Neuts (auto) 9.7 10^3/uL (1.7-8.2) H 11/28/19 18:21 Absolute Lymphs (auto) 0.9 10^3/uL (0.5-4.7) 11/28/19 18:21 Absolute Monos (auto) 1.2 10^3/uL (0.1-1.4) 11/28/19 18:21 Absolute Eos (auto) 0.2 10^3/uL (0.0-0.6) 11/28/19 18:21 Absolute Basos (auto) 0.0 10^3/uL (0.0-0.2) 11/28/19 18:21 Seg Neutrophils % 80.7 % (42-78) H 11/28/19 18:21 Sodium 134.0 mmol/L (137-145) L 11/28/19 18:21 Potassium 4.6 mmol/L (3.6-5.0) 11/28/19 18:21 Chloride 99 mmol/L (98-107) 11/28/19 18:21 Carbon Dioxide 30 mmol/L (22-30) 11/28/19 18:21 Anion Gap 5 (5-19) 11/28/19 18:21 BUN 28 mg/dL (7-20) H 11/28/19 18:21 Creatinine 1.20 mg/dL (0.52-1.25) 11/28/19 18:21 Est GFR ( Amer) > 60 (>60) 11/28/19 18:21 Est GFR (MDRD) Non-Af 59 (>60) L 11/28/19 18:21 Glucose 118 mg/dL (75-110) H 11/28/19 18:21 Lactic Acid 1.1 mmol/L (0.7-2.1) 11/28/19 18:21 Calcium 8.4 mg/dL (8.4-10.2) 11/28/19 18:21 Total Bilirubin 1.2 mg/dL (0.2-1.3) 11/28/19 18:21 Direct Bilirubin 0.1 mg/dL (0.0-0.4) 11/28/19 18:21 Neonat Total Bilirubin Not Reportable 11/28/19 18:21 Neonat Direct Bilirubin Not Reportable 11/28/19 18:21 Neonat Indirect Bili Not Reportable 11/28/19 18:21 AST 37 U/L (17-59) 11/28/19 18:21 ALT 16 U/L (<50) 11/28/19 18:21 Alkaline Phosphatase 67 U/L (38-126) 11/28/19 18:21 Troponin I < 0.012 ng/mL 11/28/19 18:21 Total Protein 6.4 g/dL (6.3-8.2) 11/28/19 18:21 Albumin 3.4 g/dL (3.5-5.0) L 11/28/19 18:21 Urine Color EMILY 11/28/19 20:20 Urine Appearance CLEAR 11/28/19 20:20 Urine pH 5.0 (5.0-9.0) 11/28/19 20:20 Ur Specific [place] 1.025 11/28/19 20:20 Urine Protein 30 mg/dL (NEGATIVE) H 11/28/19 20:20 Urine Glucose (UA) NEGATIVE mg/dL (NEGATIVE) 11/28/19 20:20 Urine Ketones TRACE mg/dL (NEGATIVE) H 11/28/19 20:20 Urine Blood NEGATIVE (NEGATIVE) 11/28/19 20:20 Urine Nitrite NEGATIVE (NEGATIVE) 11/28/19 20:20 Urine Bilirubin NEGATIVE (NEGATIVE) 11/28/19 20:20 Urine Urobilinogen 4.0 mg/dL (<2.0) H 11/28/19 20:20 Ur Leukocyte Esterase NEGATIVE (NEGATIVE) 11/28/19 20:20 Urine WBC (Auto) 3 /HPF 11/28/19 20:20 Urine RBC (Auto) 1 /HPF 11/28/19 20:20 U Hyaline Cast (Auto) 3 /LPF 11/28/19 20:20 Squamous Epi Cells Auto 1 /HPF 11/28/19 20:20 Urine Mucus (Auto) MANY /LPF 11/28/19 20:20 Urine Ascorbic Acid 20 (NEGATIVE) H 11/28/19 20:20 11/28/19 18:21 Troponin I < 0.012 Impressions: Chest/Abdomen CTA 11/28/19 17:51 IMPRESSION: 1. No evidence for pulmonary embolus. No evidence for pulmonary hypertension. Relatively small heart secondary to COPD. Relative mild enlargement of the right heart. 2. Hyperinflation. Greater lucency in the lower lobes possibly representing panlobular emphysema or diffuse air-trapping. 3. Chronic scarring in the left lung base. Resolution of previous suspicious nodule. 4. At least mild narrowing at the origin of both renal arteries. Head CT 11/28/19 20:33 IMPRESSION: 1. Minimal increase in size of ventricles since 2016. Probably atrophy. Less likely NPH. 2. Chronic white matter changes greater right posteriorly and unchanged. Focal heavily atherosclerotic left vertebral artery. 3. No acute findings. Plan Plan of Treatment: Patient is discharged home, in stable condition, into the care of family members with home health services. He is advised to follow-up with his primary care provider within 1 week. Follow-up with his orthopedic surgeon as scheduled; please contact their office and discuss concern regarding increased shoulder/upper arm swelling. Take medications as prescribed. Drink plenty of fluids. Return to the emergency department as needed for concerning symptoms. Time Spent: Greater than 30 Minutes Stroke Is this a Stroke Patient?: No Acute Heart Failure - Is this a Heart Failure Patient?: No
[2019-11-29] MEDS ORDERED: ALBUTEROL SULFATE 0.083% NEB 2.5 MG/3 ML AMPUL NEB SCH (20:00)
[2019-11-30] MEDS ORDERED: VITAMIN E (DL, ACETATE) 400 UNIT CAPSULE PO SCH (10:00)
[2019-11-30] MEDS ORDERED: PANTOPRAZOLE SODIUM 40 MG TABLET.DR PO SCH (10:00)
[2019-11-30] MEDS ORDERED: LEVOTHYROXINE SODIUM 0.075 MG TABLET PO SCH (10:00)
[2019-11-30] MEDS ORDERED: METOPROLOL SUCCINATE 25 MG TAB.SR.24H PO SCH (10:00)
[2019-11-30] MEDS ORDERED: GLUCOSAMINE HCL 1500 MG PO SCH (10:00)
[2019-11-30] MEDS ORDERED: (PENDING PHARMACY ID) (Vitamin E [Vitamin E] 400 UNIT) PO SCH (10:00)
[2019-11-30] MEDS ORDERED: VITAMIN B COMPLEX TABLET PO SCH (10:00)
[2019-11-30] MEDS ORDERED: CHOLECALCIFEROL (D3) 1,000 UNIT (25 MCG) TABLET PO SCH (10:00)
[2019-11-30] MEDS ORDERED: MULTIVITAMIN TABLET PO SCH (10:00)
[2019-11-30] MEDS ORDERED: (PENDING PHARMACY ID) (Cyanocobalamin (Vitamin B-12) [Vitamin B-12] 50 MCG) PO SCH (10:00)
[2019-11-30] MEDS ORDERED: (PENDING PHARMACY ID) (Vitamin B Complex [Vitamin B Complex] 1 CAP) PO SCH (10:00)
== END 2019-11-29 15:00 | disposition home or self-care (01) ==
LOC: ER 17:29 → EH 23:01 → 4N 11-29
PROVIDERS: ADMIT Family Medicine; ATTEND Registered Nurse
DX: R53.1 Weakness (principal); I95.1 Orthostatic hypotension; G89.4 Chronic pain syndrome; J43.1 Panlobular emphysema; I48.91 Unspecified atrial fibrillation; M19.90 Unspecified osteoarthritis, unspecified site; I25.10 Atherosclerotic heart disease of native coronary artery without angina pectoris; E78.5 Hyperlipidemia, unspecified; E03.8 Other specified hypothyroidism; R30.0 Dysuria; R40.2362 Coma scale, best motor response, obeys commands, at arrival to emergency department; R40.2142 Coma scale, eyes open, spontaneous, at arrival to emergency department; R40.2242 Coma scale, best verbal response, confused conversation, at arrival to emergency department; R26.2 Difficulty in walking, not elsewhere classified; Z79.891 Long term (current) use of opiate analgesic; Z79.899 Other long term (current) drug therapy; Z79.02 Long term (current) use of antithrombotics/antiplatelets; Z96.611 Presence of right artificial shoulder joint; Z98.1 Arthrodesis status; Z79.890 Hormone replacement therapy; Z87.891 Personal history of nicotine dependence; Z82.49 Family history of ischemic heart disease and other diseases of the circulatory system; Z98.890 Other specified postprocedural states
CPT/HCPCS: 93005; 99285; 96360; 36415; 87086; 83605; 85025; 80053; 81001; 84484; 70450; 71275; 93010; 94640; 97530 ×2; 97110 ×2; 97116; 97163; 97167; J3490; J7030; J7040

== ENCOUNTER → 2020-03-06 | Outpatient (CLI) | payer OTHER ==
--- NOTE | 2020-03-06 15:10 | RADIOLOGY REPORT (SQ) ---
EXAM DESCRIPTION: [employer]; ARTERIAL LOWER EXTREM UNILAT IMAGES COMPLETED DATE/TIME: 03/06/2020 2:06 pm REASON FOR STUDY: EDEMA WITH ABSENT PULSES; LLE EDEMA WITH ABSENT PULSES COMPARISON: None. TECHNIQUE: Dynamic and static fenton scale and color images acquired of the left lower extremity maricruz jerome. Additional selected spectral images recorded. ABIs recorded. LIMITATIONS: None. FINDINGS: RIGHT LEG: ABIS: 0.73 to 0.82 LEFT LEG: ABIS: 0.85 to 0.89 INFLOW ARTERIES: Normal, no obstruction evident. FEMORAL ARTERIES:Multiphasic waveforms. Normal, no velocity elevation to suggest focal stenosis. Norm al color Doppler evaluation. No aneurysm. POPLITEAL ARTERY:Multiphasic waveforms. Normal, no velocity elevation to suggest focal stenosis. Norm al color Doppler evaluation. No aneurysm. PATENT ANTERIOR TIBIAL ARTERY AND DORSALIS PEDIS ARTERY: Yes, normal vessels. TBI: Not performed. OTHER: No other significant finding. IMPRESSION: ESSENTIALLY NORMAL LEFT LOWER EXTREMITY ARTERIAL DOPPLER COMMENT: [facility] NORMAL: Greater than 1.0 MINIMAL DISEASE: 0.9 to 1.0 CLAUDICATION: 0.5 to 0.9 SEVERE ARTERIAL DISEASE: Less than 0.5 [facility] NORMAL: Greater than 1.0 (1.2 If Heavy Calcifications) NORMAL TO MILD ISCHEMIA: 0.8 to 1.0 MODERATE ISCHEMIA: 0.4 to 0.8 SEVERE ISCHEMIA: Less than 0.4 TECHNICAL DOCUMENTATION: JOB ID: [id number] 2010 [employer]- All Rights Reserved Reading location - IP/workstation name: [email or web address]
--- NOTE | 2020-03-06 15:10 | RADIOLOGY REPORT (SQ) ---
EXAM DESCRIPTION: [employer]; ARTERIAL LOWER EXTREM UNILAT IMAGES COMPLETED DATE/TIME: 03/06/2020 2:06 pm REASON FOR STUDY: EDEMA WITH ABSENT PULSES; LLE EDEMA WITH ABSENT PULSES COMPARISON: None. TECHNIQUE: Dynamic and static fenton scale and color images acquired of the left lower extremity maricruz jerome. Additional selected spectral images recorded. ABIs recorded. LIMITATIONS: None. FINDINGS: RIGHT LEG: ABIS: 0.73 to 0.82 LEFT LEG: ABIS: 0.85 to 0.89 INFLOW ARTERIES: Normal, no obstruction evident. FEMORAL ARTERIES:Multiphasic waveforms. Normal, no velocity elevation to suggest focal stenosis. Norm al color Doppler evaluation. No aneurysm. POPLITEAL ARTERY:Multiphasic waveforms. Normal, no velocity elevation to suggest focal stenosis. Norm al color Doppler evaluation. No aneurysm. PATENT ANTERIOR TIBIAL ARTERY AND DORSALIS PEDIS ARTERY: Yes, normal vessels. TBI: Not performed. OTHER: No other significant finding. IMPRESSION: ESSENTIALLY NORMAL LEFT LOWER EXTREMITY ARTERIAL DOPPLER COMMENT: [facility] NORMAL: Greater than 1.0 MINIMAL DISEASE: 0.9 to 1.0 CLAUDICATION: 0.5 to 0.9 SEVERE ARTERIAL DISEASE: Less than 0.5 [facility] NORMAL: Greater than 1.0 (1.2 If Heavy Calcifications) NORMAL TO MILD ISCHEMIA: 0.8 to 1.0 MODERATE ISCHEMIA: 0.4 to 0.8 SEVERE ISCHEMIA: Less than 0.4 TECHNICAL DOCUMENTATION: JOB ID: [id number] 2010 [employer]- All Rights Reserved Reading location - IP/workstation name: [email or web address]
== END ==
LOC: SP 12:30
PROVIDERS: ATTEND Physician Assistant
DX: R60.0 Localized edema (principal)
CPT/HCPCS: 93922; 93926